=== PATIENT | female | born 1930 | race Caucasian/White ===

== ENCOUNTER 2017-08-22 10:20 | Outpatient (CLI) | payer MEDICARE, OTHER | END 2017-08-22 10:21 | disposition home or self-care (01) | LOC: BICRAD 10:20 | PROVIDERS: ATTEND Internal Medicine | DX: M81.0 Age-related osteoporosis without current pathological fracture (principal); M54.32 Sciatica, left side; M41.9 Scoliosis, unspecified; M43.16 Spondylolisthesis, lumbar region; M48.56XA Collapsed vertebra, not elsewhere classified, lumbar region, initial encounter for fracture | CPT/HCPCS: 72100; 72220; 77080 ==

== ENCOUNTER 2017-10-03 17:05 | Emergency (ER) | payer MEDICARE, OTHER ==
--- NOTE | 2017-10-03 17:46 | RAD ---
FRONTAL RADIOGRAPH CHEST 10/03/17 HISTORY: Dizziness. FINDINGS: A round density at the left cardiophrenic angle is noted with an air fluid level, evidence of a hiata l hernia. Midline sternotomy wires and mediastinal clips are present. No pneumothorax, pleural fluid, lobar consolidation or alveolar edema. Mild interstitial prominence and pulmonary hyperinflation. IMPRESSION: Chronic findings as above. No focal consolidation or alveolar edema. POS: [facility]
[2017-10-03 18:16] LABS: Mean Corpuscular HGB CONC 33.2 g/dL (32.0-36.0); Mean Corpuscular Hemoglobin 29.7 pg (27.0-31.0); Mean Corpuscular Volume 89.4 fL (78.0-98.0); Mean Platelet Volume 8.1 fL (7.4-10.4); Platelet Count 160 thou/uL (130-400); RBC Distribution Width 13.4 % (11.5-14.5); Red Blood Cell (RBC) Count 4.05 mill/uL (4.20-5.40)
[2017-10-03 18:38] LABS: ALT (SGPT) 23 U/L (8-55); AST (SGOT) 26 U/L (5-34); Albumin 4.9 g/dL (3.4-4.8); Alkaline Phosphatase 56 U/L (40-150); Anion Gap 12 mmol/L (10-20); BUN (Urea Nitrogen) 28 mg/dL (9.8-20.1); Bilirubin, Total 0.2 mg/dL (0.2-1.2); CK (CPK) 111 U/L (29-168); Calc. Creatinine Clearance 0 mL/min (70-130); Calcium 10.5 mg/dL (7.8-10.44); Carbon Dioxide 27 mmol/L (23-31); Chloride 101 mmol/L (98-107); Estimated GFR-MDRD 36; Globulin 3.2 g/dL (2.4-3.5); Glucose 94 mg/dL (83-110); Lipase 69 U/L (8-78); Potassium 5.4 mmol/L (3.5-5.1); Protein, Total 8.1 g/dL (6.0-8.3); Sodium 135 mmol/L (136-145)
[2017-10-03 18:44] LABS: CKMB 2.4 ng/mL (0-6.6); Troponin I Less than 0.010 ng/mL (< 0.028)
[2017-10-03 18:57] LABS: Band 4 % (5-11); Eosinophils 2 % (0-10); Lymphocytes 41 % (21-51); MDiff Complete? YES; Monocytes 14 % (0-10); Neutrophil 38 % (42-75); PLT Morphology Comment Appears Adequate
[2017-10-03 21:09] LABS: Bilirubin Negative (Negative); Blood, Urine Negative (Negative); Clarity CLEAR (Clear); Glucose, Urine (Dipstick) Negative (Negative); Leukocyte Negative (Negative); Nitrite Negative (Negative); Protein, Urine (Dipstick) Negative (Neg-Trace); Specific Gravity, Urine 1.007 (1.002-1.036); Urobilinogen 0.2 mg/dL (0.2-1.0)
== END 2017-10-03 22:10 | disposition home or self-care (01) ==
LOC: ERS 17:05
DX: E86.0 Dehydration (principal); I25.10 Atherosclerotic heart disease of native coronary artery without angina pectoris; Z79.899 Other long term (current) drug therapy; Z79.82 Long term (current) use of aspirin
CPT/HCPCS: 36416; 71045; 80053; 81003; 82553; 83690; 84484; 85025; 93005; 96360

== ENCOUNTER 2018-10-20 10:11 | Observation (INO) | payer MEDICARE, OTHER ==
[2018-10-20 10:41] LABS: Hemoglobin 12.4 g/dL (12.0-16.0); Mean Corpuscular HGB CONC 33.3 g/dL (32.0-36.0); Mean Corpuscular Volume 90.2 fL (78.0-98.0); Mean Platelet Volume 6.1 fL (7.4-10.4); Platelet Count 410 thou/uL (130-400); RBC Distribution Width 11.8 % (11.5-14.5); Red Blood Cell (RBC) Count 4.13 mill/uL (4.20-5.40); White Blood Cell (WBC) Count 9.4 thou/uL (4.8-10.8)
[2018-10-20 10:56] LABS: ALT (SGPT) 28 U/L (8-55); AST (SGOT) 19 U/L (5-34); Albumin 4.2 g/dL (3.4-4.8); Alkaline Phosphatase 121 U/L (40-150); Anion Gap 14 mmol/L (10-20); BUN (Urea Nitrogen) 16 mg/dL (9.8-20.1); Bilirubin, Total 0.4 mg/dL (0.2-1.2); Calc. Creatinine Clearance 0 mL/min (70-130); Calcium 10.2 mg/dL (7.8-10.44); Carbon Dioxide 26 mmol/L (23-31); Chloride 93 mmol/L (98-107); Estimated GFR-MDRD 43; Globulin 4.1 g/dL (2.4-3.5); Glucose 107 mg/dL (83-110); Lipase 128 U/L (8-78); Potassium 4.8 mmol/L (3.5-5.1); Protein, Total 8.3 g/dL (6.0-8.3); Sodium 128 mmol/L (136-145)
[2018-10-20 11:15] LABS: Eosinophils 1 % (0-10); Lymphocytes 20 % (21-51); MDiff Complete? YES; Monocytes 9 % (0-10); Neutrophil 66 % (42-75); Platelet Morphology Comment Appears Increased; RBC Morphology Normal; Reactive Lymphocytes 3 % (0-10)
[2018-10-20] MEDS ORDERED: Morphine 4 MG/ML VIAL ONE (11:24)
[2018-10-20] MEDS ORDERED: Ondansetron PF 4 MG/2 ML Vial ONE (11:24)
[2018-10-20] MEDS ORDERED: ISOVUE-370 76%-LOCM 1 ML ONE (11:54)
--- NOTE | 2018-10-20 12:30 | CT ---
CT ABDOMEN AND PELVIS WITH IV CONTRAST: Date: 10/20/18 HISTORY: Abdominal pain, diarrhea, right lower quadrant pain. FINDINGS: A large hiatal hernia is present. There are mild dependent changes in the lung bases. Multiple calcif ied splenic granulomas are present. No calcified gallstones are identified. The liver, pancreas, adre nal glands, and right kidney are normal. There is a 15 mm cortical cyst arising from the inferior juan e of the left kidney. There are vascular calcifications without evidence of aneurysmal dilatation of the abdominal aorta. D egenerative changes are present in the spine. No free air is seen. There is a moderate amount of free fluid in the pelvis. There is sigmoid diverticulosis. The small bowel loops are not abnormally dilat ed. There is prominence of the hurst of the terminal ileum. An abnormal appendix is not definitely se en. IMPRESSION: 1. Large hiatal hernia. 2. Calcified splenic granulomas. 3. Left renal cyst. 4. Sigmoid diverticulosis. 5. Moderate amount of free fluid in the pelvis. 6. Probable thickening of the wall of the terminal ileum. This is a nonspecific finding and may be d ue to infection, inflammatory or infiltrative disorders. POS: [facility]
[2018-10-20 13:35] LABS: Bilirubin Negative (Negative); Blood, Urine Negative (Negative); Clarity Clear (Clear); Glucose, Urine (Dipstick) Normal (Negative); Leukocyte Negative Leu/uL (Negative); Nitrite Negative (Negative); Protein, Urine (Dipstick) Negative (Neg-Trace); Urobilinogen Normal mg/dL (Less than 2)
[2018-10-20] MEDS ORDERED: Ondansetron PF 4 MG/2 ML Vial IVP PRN (16:20)
[2018-10-20] MEDS ORDERED: HYDROcodone/Acetaminophen 5/325 mg Tablet PO PRN ×2 (16:20)
[2018-10-20] MEDS ORDERED: Acetaminophen 325 MG TAB PO PRN (16:20)
[2018-10-20 16:43] VITALS: BMI 22.5
[2018-10-20] MEDS: Sodium Chloride 0.9% 1,000 ML IV SCH (17:23)
[2018-10-20] MEDS ORDERED: Melatonin 3 MG TAB PO PRN (18:14)
[2018-10-20 18:42] LABS: Anion Gap 14 mmol/L (10-20); BUN (Urea Nitrogen) 13 mg/dL (9.8-20.1); Calc. Creatinine Clearance 40 mL/min (70-130); Calcium 9.6 mg/dL (7.8-10.44); Carbon Dioxide 24 mmol/L (23-31); Chloride 98 mmol/L (98-107); Estimated GFR-MDRD 55; Glucose 101 mg/dL (83-110); Potassium 4.6 mmol/L (3.5-5.1); Sodium 131 mmol/L (136-145)
--- NOTE | 2018-10-20 18:52 | HP ---
CHIEF COMPLAINT: Abdominal pain and frequent loose stool. HISTORY OF PRESENT ILLNESS: An 87-year-old female with past medical history significant for coronary artery disease, status post CABG; hypertension; hyperlipidemia; and others, who was recently started by dentist on Z-Cornel, which was just completed yesterday for jaw pain. The patient reported poor appetite while on antibiotics associated with intermittent abdominal pain, which, however, started getting worse since a day prior to presentation, culminating in marked increase in severity today and was associated with frequent loose stools. The patient reportedly had about four loose bowel motions earlier today, hence was brought to the emergency room. There was no history of fever, vomiting, dysuria, chest pain, palpitations, shortness of breath, headache, leg swelling, hematemesis, hematochezia, or melena. It was also reported that in the last several days due to poor appetite, the patient has had little or nothing to eat or drink. In the emergency room, the patient was found to have hyponatremia as well as mild elevation in creatinine. Further evaluation with CT scan of the abdomen and pelvis showed thickening of the terminal ileum as well as diverticulosis and free fluid in the pelvis. The patient was admitted for further evaluation and observation. There was no history of NSAID use or laxative use. PAST MEDICAL HISTORY: 1. Coronary artery disease, status post CABG. 2. Hypertension. 3. Hyperlipidemia. PAST SURGICAL HISTORY: 1. Bypass surgery. 2. Tonsillectomy. 3. Hysterectomy. 4. Appendectomy. FAMILY HISTORY: Reviewed, but noncontributory. SOCIAL HISTORY: The patient lives alone. Denied alcohol, smoking, or recreational drug use. The patient wants to be do not resuscitate. Son is the surrogate decision maker. ALLERGIES: NO KNOWN DRUG ALLERGIES REPORTED. HOME MEDICATIONS: 1. Calcium carbonate/citrate with vitamin D 1 tablet p.o. b.i.d. 2. Cholecalciferol 2000 units daily. 3. Cyanocobalamin 1000 mcg p.o. daily. 4. Iron one tablet daily. 5. Magnesium oxide 400 mg p.o. daily. 6. Multivitamin one tablet daily. 7. [place]-3 fatty acids one capsule daily. 8. Amlodipine 5 mg p.o. daily at p.m. 9. Aspirin 81 mg p.o. daily. 10. Lipitor 10 mg p.o. daily at bedtime. 11. Levothyroxine 50 mcg p.o. daily. 12. Lisinopril 10 mg p.o. daily. 13. Melatonin 5 mg p.o. q.p.m. 14. Metoprolol succinate 25 mg p.o. daily. REVIEW OF SYSTEMS: A 12-point review of system performed was negative other than pertinent positives and negatives included in the history of present illness. PHYSICAL EXAMINATION: VITAL SIGNS: Temperature 97.6, pulse 81, respiratory rate 16, SpO2 of 96% on room air, and blood pressure is 144/76. GENERAL: Healthy-looking elderly female, in no obvious distress. Afebrile. Anicteric. Acyanotic. HEENT: Normocephalic and atraumatic. Pupils are reacting to light. Oral mucosa is moist. NECK: Supple, nontender with full range of motion. No lymphadenopathy or masses was appreciated. CARDIOVASCULAR: Regular rhythm and rate with normal heart sounds 1 and 2. Soft systolic murmur was noted. RESPIRATORY: Good air entry bilaterally with no crackle or rhonchi or use of accessory muscles. GI: Full, soft, nondistended with questionable right lower quadrant mild tenderness. Bowel sound is normoactive. EXTREMITIES: Grossly normal looking, atraumatic with no edema, erythema, or cyanosis. Distal pulses are palpable. NEUROLOGIC: Conscious, alert, and oriented x3 with appropriate mental status. Cranial nerves 2 through 12 are grossly intact. The patient moves all extremities. DIAGNOSTIC DATA: CBC showed WBC count of 9.4, hemoglobin of 12.4, MCV of 90.2, platelet of 410. CMP showed sodium 128, potassium 4.8, chloride 93, CO2 of 26, BUN 16, creatinine 1.19, glucose 107, calcium 10.2, total bilirubin 0.4, AST 19, ALT 28, alkaline phosphatase 121, total protein 8.3, albumin 4.2. Lipase is 128. Review of medical records showed the patient had sodium of 135 on October 03, 2017. Urinalysis showed clear urine with pH of 7.0; specific gravity of 1.015; negative protein, ketone, blood, nitrite, bilirubin, and leukocyte esterase. CT scan of the abdomen and pelvis showed large hiatal hernia with calcified splenic granulomas. Left renal cyst, sigmoid diverticulosis with no evidence of acute diverticulitis, moderate amount of free fluid in the pelvis were noted as well as probable thickening of the wall of the terminal ileum. ASSESSMENT: 1. Acute abdominal pain: This is mild and has improved since presentation. Etiology is unclear, but finding of terminal ileum thickening is concerning for ileitis. Given association with ill feeling, poor appetite and diarrhea illness, viral infection is a concern. 2. Possible terminal ileitis. 3. Hyponatremia: This is most likely due to dehydration with appropriate ADH secretion. The patient had normal serum sodium in September 2017. She is not on any medication that could cause syndrome of inappropriate antidiuretic hormone secretion. Mild elevation in creatinine is suggestive of volume depletion. 4. Renal insufficiency with possible acute kidney injury. 5. Coronary artery disease, status post CABG, asymptomatic. 6. Hypertension, on medications. 7. Hyperlipidemia, on medications. 8. Recent jaw ache: Resolved with completed antibiotic course. PLAN: 1. Start the patient on normal saline at 100 mL/h and follow up with BMP. 2. We will also get urine sodium and osmolality as well as serum osmolality. 3. We will continue home medications. 4. We will recheck BMP in the morning. 5. Diet as tolerated will be commenced. 6. DVT prophylaxis with Lovenox. 7. Ethics: The patient wants to be do not resuscitate. The patient's son is the surrogate decision maker. Job ID: [id number]
[2018-10-20] MEDS ORDERED: Atorvastatin Calcium 10 MG TAB PO SCH (21:00)
[2018-10-20] MEDS ORDERED: Amlodipine 5 MG TAB PO SCH (21:00)
[2018-10-21] MEDS: Sodium Chloride 0.9% 1,000 ML IV SCH (02:39)
[2018-10-21 05:45] LABS: Band 4 % (5-11); Eosinophils 1 % (0-10); Hemoglobin 9.7 g/dL (12.0-16.0); Lymphocytes 30 % (21-51); MDiff Complete? YES; Mean Corpuscular HGB CONC 33.5 g/dL (32.0-36.0); Mean Corpuscular Hemoglobin 30.4 pg (27.0-31.0); Mean Corpuscular Volume 90.8 fL (78.0-98.0); Mean Platelet Volume 6.2 fL (7.4-10.4); Metamyelocyte 1 % (0-0); Monocytes 15 % (0-10); Neutrophil 49 % (42-75); Platelet Count 305 thou/uL (130-400); Platelet Morphology Comment Appears Adequate; RBC Distribution Width 11.6 % (11.5-14.5); Red Blood Cell (RBC) Count 3.19 mill/uL (4.20-5.40); White Blood Cell (WBC) Count 5.9 thou/uL (4.8-10.8)
[2018-10-21 05:49] LABS: Anion Gap 9 mmol/L (10-20); BUN (Urea Nitrogen) 15 mg/dL (9.8-20.1); Calc. Creatinine Clearance 46 mL/min (70-130); Carbon Dioxide 25 mmol/L (23-31); Chloride 104 mmol/L (98-107); Estimated GFR-MDRD 66; Glucose 97 mg/dL (83-110); Potassium 4.4 mmol/L (3.5-5.1); Sodium 134 mmol/L (136-145)
[2018-10-21 08:20] VITALS: BP 121/61; TEMP 97.6
[2018-10-21] MEDS ORDERED: Levothyroxine Sodium 50 MCG TAB PO SCH (09:00)
[2018-10-21] MEDS ORDERED: Enoxaparin Sodium 30 MG/0.3 ML SYRINGE SC SCH (09:00)
[2018-10-21] MEDS ORDERED: Aspirin Chewable 81 MG TAB PO SCH (09:00)
[2018-10-21] MEDS ORDERED: Lisinopril 10 MG TAB PO SCH (09:00)
--- NOTE | 2018-10-21 13:36 | PDOC.EVN ---
Event Note - Event Note Event Note: Discharge home. discharge summary dictated. #[id number]
--- NOTE | 2018-10-21 13:57 | DIS ---
DATE OF ADMISSION: 10/20/2018 DATE OF DISCHARGE: 10/21/2018 PRIMARY CARE PHYSICIAN: Dr. Jacki Navarrete. DISCHARGE DIAGNOSES: 1. Acute abdominal pain. 2. Acute diarrhea illness. 3. Possible terminal ileitis. 4. Hypernatremia. 5. Dehydration. 6. Acute kidney injury. 7. Hypertension. 8. Hyperlipidemia. 9. Coronary artery disease, status post CABG. HOSPITAL COURSE: The patient is an 87-year-old female with known history of coronary artery disease, status post CABG, hypertension, hyperlipidemia, who was admitted due to generalized ill feeling while on Z-Cornel for jaw pain, who later developed abdominal pain and frequent loose stools. The patient has had poor oral intake and was weak. On presentation, she was found to have hyponatremia as well as mild elevation in creatinine, and further evaluation with CT scan of the abdomen showed possible terminal ileitis. The patient also was felt to be clinically dry. Hyponatremia was felt to be due to dehydration with appropriate ADH secretion, and the patient was treated with IV fluid therapy with improvement in both the general condition as well as in serum sodium. The patient soon complained of hunger and was started on oral intake. She had no further loose stools and remained stable and was subsequently discharged home the following day with resolution of symptoms. Of note, the patient had no loose stool or emesis during this hospitalization. PHYSICAL EXAMINATION: VITAL SIGNS: Temperature 97.6, pulse 73, respiratory rate 16, SpO2 of 94 on room air, blood pressure 121/61. GENERAL: Healthy-looking elderly female, in no distress. Afebrile. Anicteric. Acyanotic. HEENT: Normocephalic, atraumatic. Oral mucosa is moist. CARDIOVASCULAR: Regular rhythm and rate with normal heart sounds 1 and 2. RESPIRATORY: Good air entry bilaterally with no crackle or rhonchi or use of accessory muscles. GI: Abdomen is full, soft, nontender, nondistended with normal bowel sounds. EXTREMITIES: Grossly normal looking, atraumatic, with no edema or erythema. NEUROLOGIC: Conscious and alert and oriented x3 with appropriate mental status. The patient is ambulant. DISCHARGE DISPOSITION: Home. DISCHARGE CONDITION: Improved. DISCHARGE MEDICATIONS: See discharged med reconciliation. The patient was restarted on her usual home medications. Job ID: [id number]
== END 2018-10-21 09:45 | disposition home or self-care (01) ==
LOC: ERS 10:11 → 2SW 16:25
PROVIDERS: ADMIT Internal Medicine Nephrology; ATTEND Internal Medicine Nephrology
DX: R10.9 Unspecified abdominal pain (principal); R19.7 Diarrhea, unspecified; E87.1 Hypo-osmolality and hyponatremia; E86.0 Dehydration; N17.9 Acute kidney failure, unspecified; E78.5 Hyperlipidemia, unspecified; I10 Essential (primary) hypertension; I25.10 Atherosclerotic heart disease of native coronary artery without angina pectoris; Z66 Do not resuscitate; Z79.82 Long term (current) use of aspirin; Z79.899 Other long term (current) drug therapy; Z95.1 Presence of aortocoronary bypass graft
CPT/HCPCS: 74177; 80048 ×2; 80053; 81003; 83690; 85025 ×2; 96361 ×3; 96372; 96374; 96375; 99285; G0378 ×3; G0463; 36415; 99213; J1650; J2270; J2405; Q9966

== ENCOUNTER 2018-11-14 14:30 | Inpatient (IN) | payer MEDICARE, OTHER ==
[2018-11-14] MEDS ORDERED: ISOVUE-370 76%-LOCM 1 ML ONE (15:45)
[2018-11-14 16:38] LABS: Hemoglobin 11.4 g/dL (12.0-16.0); Mean Corpuscular HGB CONC 34.1 g/dL (32.0-36.0); Mean Corpuscular Hemoglobin 30.4 pg (27.0-31.0); Mean Corpuscular Volume 89.4 fL (78.0-98.0); Mean Platelet Volume 8.2 fL (7.4-10.4); Platelet Count 176 thou/uL (130-400); RBC Distribution Width 12.4 % (11.5-14.5); Red Blood Cell (RBC) Count 3.73 mill/uL (4.20-5.40); White Blood Cell (WBC) Count 10.9 thou/uL (4.8-10.8)
[2018-11-14 16:49] LABS: ALT (SGPT) 15 U/L (8-55); AST (SGOT) 25 U/L (5-34); Albumin 4.6 g/dL (3.4-4.8); Alkaline Phosphatase 74 U/L (40-150); Anion Gap 15 mmol/L (10-20); BUN (Urea Nitrogen) 16 mg/dL (9.8-20.1); Bilirubin, Total 0.7 mg/dL (0.2-1.2); Calc. Creatinine Clearance 0 mL/min (70-130); Calcium 9.9 mg/dL (7.8-10.44); Carbon Dioxide 22 mmol/L (23-31); Chloride 91 mmol/L (98-107); Estimated GFR-MDRD 54; Globulin 3.4 g/dL (2.4-3.5); Glucose 108 mg/dL (83-110); Lipase 68 U/L (8-78); Potassium 4.6 mmol/L (3.5-5.1); Sodium 123 mmol/L (136-145)
[2018-11-14 17:01] LABS: Band 31 % (5-11); Lymphocytes 6 % (21-51); MDiff Complete? YES; Monocytes 14 % (0-10); Neutrophil 49 % (42-75); Platelet Morphology Comment Appears Adequate; Polychromasia SLIGHT = 2-3 cells (100X) (0-2/hpf)
--- NOTE | 2018-11-14 17:51 | CT ---
CT OF THE ABDOMEN AND PELVIS WITH IV CONTRAST INDICATION: Abdominal pain and rectal pain COMPARISON: Prior exam dated October 20, 2018 FINDINGS: ABDOMEN: There is a moderate size hiatal hernia Lung bases: Bibasilar atelectasis Liver: No focal lesion. Gallbladder: Normal appearing. Pancreas: Normal. Adrenal glands: Normal. Spleen: Calcified granuloma Kidneys: Bilateral renal cysts but no hydronephrosis Retroperitoneum of the upper abdomen: There are moderate vascular calcifications seen involving the v isualized vasculature. No pathologically enlarged lymph nodes are evident. Pelvis: Small and large bowel: Normal caliber Bladder: Normal. Rectal and perirectal soft tissues:Wall thickening with presacral edema Reproductive structures: Uterus surgically absent. There is an enlarging 2.1 cm hypodensity involving the left adnexa. Free fluid in pelvis: No free fluid is evident. Lymphadenopathy pelvis: No lymphadenopathy is evident. Osseous structures: Stable compression abnormality of L1. There is scattered degenerative and osteoar thritic change present. There is diffuse osteopenia. No acute fracture or subluxation demonstrated. IMPRESSION: 1. Acute proctitis with associated presacral soft tissue edema. 2. Enlarging left adnexal cystic abnormality. Nonemergent follow-up pelvic ultrasound is recommended. 3. Chronic findings as above
[2018-11-14] MEDS ORDERED: metroNIDAZOLE 500 MG/100 ML BAG ONE (18:29)
[2018-11-14] MEDS ORDERED: Pantoprazole 40 MG VIAL ONE ×2 (18:29→18:41)
[2018-11-14] MEDS ORDERED: Ondansetron PF 4 MG/2 ML Vial IVP PRN (20:13)
[2018-11-14] MEDS ORDERED: Acetaminophen 325 MG TAB PO PRN (20:13)
[2018-11-14] MEDS ORDERED: Ondansetron ODT 4 MG TAB PO PRN (20:13)
[2018-11-14] MEDS ORDERED: Acetaminophen 650 MG Suppository PR PRN (20:13)
[2018-11-14] MEDS ORDERED: metroNIDAZOLE 500 MG in Premix Bag 1 BAG IVPB SCH (22:00)
[2018-11-14] MEDS ORDERED: Dextrose 5 % And 0.9 % NaCl 1,000 ML IV SCH (22:15)
[2018-11-14 22:27] VITALS: BMI 22.1
[2018-11-15] MEDS: metroNIDAZOLE 500 MG in Premix Bag 1 BAG IVPB SCH ×3 (02:13→17:35)
[2018-11-15 05:09] LABS: Anion Gap 12 mmol/L (10-20); BUN (Urea Nitrogen) 10 mg/dL (9.8-20.1); Calc. Creatinine Clearance 43 mL/min (70-130); Calcium 8.8 mg/dL (7.8-10.44); Carbon Dioxide 20 mmol/L (23-31); Chloride 99 mmol/L (98-107); Estimated GFR-MDRD 66; Glucose 103 mg/dL (83-110); Sodium 127 mmol/L (136-145)
[2018-11-15 05:41] LABS: Band 12 % (5-11); Hemoglobin 10.6 g/dL (12.0-16.0); Lymphocytes 12 % (21-51); MDiff Complete? YES; Mean Corpuscular HGB CONC 33.9 g/dL (32.0-36.0); Mean Corpuscular Hemoglobin 30.5 pg (27.0-31.0); Mean Platelet Volume 8.4 fL (7.4-10.4); Monocytes 18 % (0-10); Neutrophil 58 % (42-75); Platelet Count 154 thou/uL (130-400); RBC Distribution Width 12.5 % (11.5-14.5); Red Blood Cell (RBC) Count 3.49 mill/uL (4.20-5.40); White Blood Cell (WBC) Count 8.7 thou/uL (4.8-10.8)
[2018-11-15] MEDS ORDERED: Meclizine HCl 25 MG TAB PO PRN (08:03)
[2018-11-15] MEDS ORDERED: Non-Formulary Item 1 EACH (Melatonin [Melatonin] 5 MG) PO PRN (08:03)
[2018-11-15] MEDS: Enoxaparin Sodium 40 MG/0.4 ML SYRINGE SC SCH (08:38)
[2018-11-15] MEDS ORDERED: OMEGA 3 FATTY ACIDS PO SCH (09:00)
[2018-11-15] MEDS ORDERED: IRON 45 MG PO SCH (09:00)
[2018-11-15] MEDS ORDERED: VIT D3 PO SCH (09:00)
[2018-11-15] MEDS ORDERED: MAGNESIUM GLYCINATE 400 MG PO SCH (09:00)
[2018-11-15] MEDS ORDERED: Non-Formulary Item 1 EACH (Cyanocobalamin (Vitamin B-12) [Vitamin B-12] 1,000 MCG) PO SCH (09:00)
[2018-11-15] MEDS ORDERED: CALCIUM CARB CITRATE PO SCH (09:00)
[2018-11-15] MEDS ORDERED: MELATONIN 5 MG PO PRN (09:05)
[2018-11-15] MEDS: Calcium Carbonate + Vit D 1 TAB PO SCH ×2 (09:15→20:58)
[2018-11-15] MEDS: Senokot S 8.6-50 MG TAB PO SCH ×2 (09:16→20:58)
[2018-11-15] MEDS: Lisinopril 10 MG TAB PO SCH (09:16)
[2018-11-15] MEDS: Magnesium Oxide 400 MG TAB PO SCH (09:16)
[2018-11-15] MEDS: Aspirin Chewable 81 MG TAB PO SCH (09:17)
[2018-11-15] MEDS: Levothyroxine Sodium 50 MCG TAB PO SCH (09:17)
[2018-11-15] MEDS: Cyanocobalamin (Vitamin B-12) 1,000 MCG TAB PO SCH (09:17)
[2018-11-15] MEDS ORDERED: Melatonin 3 MG TAB PO PRN (11:55)
--- NOTE | 2018-11-15 12:23 | ULT ---
PELVIC SONOGRAM TRANSABDOMINAL IMAGING WITH DUPLEX EVALUATION: HISTORY: Left adnexal mass. Abnormal CT. FINDINGS: Urinary bladder has a normal appearance. Uterus is surgically absent. No free fluid. The right ovary not visualized with transabdominal imaging. No solid or cystic masses. Left ovary measures up to 3.3 cm with good color and spectral Doppler flow. An eccentric oval cystic lesion measures up to 2.3 cm. This correlates with the abnormality on CT. IMPRESSION: 1. Left ovarian cyst 2.3 cm. Please consider gynecologic consultation. 2. Status post hysterectomy. 3. Nonvisualization right ovary. POS: [facility]
--- NOTE | 2018-11-15 12:25 | HP ---
PRIMARY CARE PHYSICIAN: Jacki Navarrete MD CHIEF COMPLAINT/REASON FOR ADMISSION: "I was unable to have a bowel movement." HISTORY OF PRESENT ILLNESS: Ms. Cordova is a delightful 88-year-old female, presenting on 11/14/2018, to [facility] Emergency Department with complaint of difficulty having a bowel movement. Ms. Cordova has a bowel movement each day, she is very regular. She was able to have a bowel movement on 11/12/2018. However, on 11/13/2018, unable to have a bowel movement despite trial of suppository. She endorses straining at that time. She became progressively more and more uncomfortable, trying once again on the morning of 11/14/2018 with a Dulcolax suppository as well as oral tablet. She developed a lower abdominal pain and cramping, inability to pass stools, proceeded to the emergency department, was triaged at 1433 hours yesterday afternoon. Emergency department workup included laboratory evaluation showing mild leukocytosis with white blood cell count of 10.9, hemoglobin 11.4, hematocrit 33.3, and platelet count of 176. Chemistry panel also notable for hyponatremia with serum sodium of 123, chloride of 91, and carbon dioxide 22. Liver function tests unremarkable. Imaging performed included abdominal/pelvis CT scan. This was also compared to prior scans on October 20, 2018, at which time, the patient was hospitalized for an overnight stay in the context of terminal ileitis and hyponatremia. Findings of CT on 11/15 include acute prostatitis with associated presacral soft tissue edema. Enlarging left adnexal cystic abnormality with recommendation for followup pelvic ultrasound, 2.1 cm hypodensity involving left adnexa. Hospital stay from September reviewed with the patient, this was an overnight stay, hospitalized with diarrhea and acute abdominal pain, with imaging showing possible terminal ileitis. At that time as well, she was noted to have hyponatremia, treated with IV fluid resuscitation with interval improvement. At that time, her serum sodium was 128. Additional pertinent medical comorbidities include coronary artery disease, dyslipidemia, and hypothyroidism. Home medication list also includes iron, likely contributing to constipation. GI history includes previous colonoscopy under the care of Dr. Salazar, the patient estimates this was greater than 10 years ago. ER holding orders indicate GI consultation requested, antibiotics initiated including ciprofloxacin and Flagyl. At the time of my evaluation this morning, the patient states she slept well. She "feels fine today." No further abdominal pain. Has not tried to eat since yesterday, when she tolerated 2 or 3 bites of soup. She denies any nausea at this time. She is unsure if she has had any blood in her stools. She does not recall any gross bleeding with specificity. No fever. Weight has been stable at home. Yesterday afternoon, she was able to have a large bowel movement, at which time, her symptoms significantly improved. Overnight, one looser stool as well. Reports feeling much better today. PAST MEDICAL HISTORY: 1. Coronary artery disease with history of coronary artery bypass grafting. 2. Hypothyroidism. 3. Dyslipidemia. 4. History of B12 deficiency, on chronic B12 supplementation. 5. Hypertension, well controlled. 6. History of daily iron supplementation, presumably for history of anemia, though the patient is unsure. PAST SURGICAL HISTORY: 1. Coronary artery bypass surgery. 2. Tonsillectomy. 3. Hysterectomy. 4. Appendectomy. ALLERGIES: NONE. SOCIAL HISTORY: Ms. Cordova lives independently. Her son is her surrogate medical decision maker, Dov Cordova, who lives nearby. Code status is do not resuscitate. I have reviewed this with her this morning. She does not smoke, no alcohol use, no illicit drug use. FAMILY HISTORY: Father at age 76 of complications of cardiac problems. Mother at age 98 of old age. REVIEW OF SYSTEMS: Full review of systems reviewed/addressed/negative except otherwise as mentioned. PHYSICAL EXAMINATION: VITAL SIGNS: Blood pressure 117/64, heart rate 72, respiratory rate 16, saturating 95% on room air, and temperature 98.0. GENERAL: This is a pleasant elderly female, sitting up in a chair. She is breathing comfortably, has some sensorineural hearing loss, but is a good history town justice when able to hear the questioning. HEENT: Eyes are without conjunctival injection or scleral icterus. Oropharynx is clear with no erythema/exudate. NECK: Supple. Full range of motion. HEART: Regular rate/rhythm. No distinct murmurs/rubs/gallops. LUNGS: Clear to auscultation bilaterally. ABDOMEN: Soft, nontender, and nondistended. EXTREMITIES: Without clubbing/cyanosis/edema. NEUROLOGIC: No focal deficits. SKIN: No new skin rash/skin changes. LAB/DATA REVIEW: Serum sodium on admission 123, serum sodium today 127; potassium 4.0; carbon dioxide 20; BUN 10; and creatinine 0.8. Liver function tests are reviewed and are unremarkable. Admission white blood cell count 10.9, hemoglobin 11.4. Today, white blood cell count 8.7, hemoglobin 10.6, and hematocrit 31.4. She does have a left shift present with 12% bands this morning, 12% lymphocytes, 18% monocytes. Imaging studies as well as old records are reviewed and summarized as per HPI. IMPRESSION: 1. Acute proctitis, manifesting with obstipation, with associated presacral soft tissue edema. 2. Lower abdominal pain, on admission, resolved, in the context of obstipation. 3. A 2.1-cm hypodensity, left adnexa, likely incidental. 4. Coronary artery disease with history of prior coronary artery bypass grafting, stable. 5. Essential hypertension, controlled. 6. Dyslipidemia. 7. Chronic iron therapy, likely contributing to constipation. 8. Leukocytosis, on admission, improved. 9. Hyponatremia, on admission, improving. 10. Mild hypovolemia/dehydration, improving. 11. Hypothyroidism. PLAN/RECOMMENDATIONS: 1. GI - previous history of colonoscopy under the care of Dr. Salazar, greater than 10 years ago. Presently on Flagyl/Cipro, presumptively treating for acute proctitis. GI consult pending, appreciate input. Dietary trial today. Consideration of cessation iron regimen given difficulties with constipation. 2. Fluids, electrolytes, nutrition. Check morning serum sodium. The patient is asymptomatic from hyponatremia. Received IV fluids overnight, saline lock and monitor. 3. DVT prophylaxis - Lovenox. 4. Cardiology - continue home MICHELE inhibitor/beta-wendi/statin/aspirin. 5. Endocrine - continue home thyroid replacement. 6. Code status, do not resuscitate, confirmed with the patient, order added to chart. 7. Consult walking program to prevent deconditioning during hospital stay. 8. Given her age/comorbidities, admit to inpatient status, the patient at high risk. Job ID: [id number]
[2018-11-15] MEDS ORDERED: Non-Formulary Item 1 EACH (Cholecalciferol (Vitamin D3) [Vitamin D3] 2,000 UNIT) PO SCH (21:00)
[2018-11-15] MEDS ORDERED: Non-Formulary Item 1 EACH (Multivitamin [Multi-Vitamin Daily] 1 TAB) PO SCH (21:00)
[2018-11-15] MEDS ORDERED: Magnesium Oxide 400 MG TAB PO SCH (21:00)
[2018-11-15] MEDS ORDERED: Amlodipine 5 MG TAB PO SCH (21:00)
[2018-11-15] MEDS ORDERED: Multivit, Therapeutic 1 TAB PO SCH (21:00)
[2018-11-15] MEDS ORDERED: Atorvastatin Calcium 10 MG TAB PO SCH (21:00)
--- NOTE | 2018-11-15 23:49 | CON ---
DATE OF CONSULTATION: REASON FOR CONSULTATION: Abnormal CAT scan of the rectum showing "proctitis." HISTORY OF PRESENT ILLNESS: Ms. Cordova is an 88-year-old female. She was recently here from 10/20 to 10/21, with diarrheal illness. She had some vague findings of possible ileitis on a CAT scan. She had no leukocytosis. She went home and states she has been doing fine. She lives by herself. Son lives down the street. She states she became constipated, did not have a bowel movement on Monday or again Monday and also was taking multiple laxatives and then came in with rectal pain and lower abdominal pain. She had a CAT scan that showed prominent amount of stool in the rectum and some possible proctitis. She had bands of 31% on her CBC with a white count of 10.9 yesterday. She states in the emergency room after the CAT scan, she had a massive bowel movement and felt immediately better. She does not recall seeing blood there. She has not had anything like this in the past. Presently, she feels much better and is eating a regular diet. PAST MEDICAL HISTORY: Coronary artery disease with prior bypass; hypothyroidism; dyslipidemia; history of vitamin B12 deficiency, on chronic B12; hypertension, well controlled; history of iron supplementation in the past, although was not very anemic recently. She had a colonoscopy about 10 years ago, which was normal. She states she never had polyps before. PAST SURGICAL HISTORY: Bypass surgery, tonsillectomy, hysterectomy, and appendectomy. ALLERGIES: NONE. SOCIAL HISTORY: The patient lives independently. Son lives down the street. She does not smoke, drink, or use drugs. FAMILY HISTORY: Father at 76 of cardiac problems and mother at age 98 of old age. There is no family history of colorectal cancer or colitis. REVIEW OF SYSTEMS: Negative for dysphagia, odynophagia, melena, hematochezia, or hematemesis. She has not had any bowel issues like this recently and she was asymptomatic during her hospitalization in late September and now. MEDICATIONS: At home, reviewed on the home medication list includes; 1. Antivert. 2. Calcium. 3. Magnesium. 4. [place]-3. 5. B12. 6. Vitamin D. 7. Lipitor. 8. Norvasc. 9. Multivitamin. 10. Melatonin. 11. Iron. 12. Aspirin. 13. Toprol. 14. Zestril. 15. Synthroid. Here, she has been kept on her home medications. She has additionally been started on Flagyl and Lovenox subcu. PHYSICAL EXAMINATION: GENERAL: The patient is resting comfortably in bed. She is in no apparent distress. She is alert and oriented to person, place, and time. VITAL SIGNS: She is afebrile, temperature 97.7. She has been afebrile since admission. Pulse 72 and blood pressure 112/62. LUNGS: Clear. HEART: Regular rate and rhythm without clicks, rubs, or murmurs. ABDOMEN: Soft and nontender. There is no rebound or guarding. RECTAL: Reveals no masses or tenderness. There is no blood in the examining glove. There is no fullness to the rectum. There is no impaction now. LABORATORY DATA: White count is 8.7, hemoglobin is 10.6, and platelet count is 154. She has 12% bands and 58% neutrophils. Basic metabolic profile is normal. The BUN and creatinine are 10 and 0.82. Liver function tests are normal. Lipase is normal. ASSESSMENT: Proctitis, likely related to obstipation. It seems that she has had a large bowel movement and felt better immediately. She developed slight bandemia. She may have had some rectal ischemia. There is no evidence of rectal bleeding at this time. She is on Flagyl, but the Cipro has been discontinued. I am not sure if she needs either one. We will not change her antibiotics at this point in time as she has a significant risk for C difficile as she has been on antibiotics recently when she was here last time a month ago. PLAN: We would manage conservatively now. If she has recurrent symptoms, can consider colonoscopy definitely. She has advanced age and has had some medical problems, but she is very sharp and very healthy and has longevity on her mother's side of the family. We will follow along with you. Thank you for including me in this patient's evaluation. Job ID: [id number]
[2018-11-16] MEDS: metroNIDAZOLE 500 MG in Premix Bag 1 BAG IVPB SCH ×2 (01:34→10:27)
[2018-11-16 07:21] LABS: Hemoglobin 9.9 g/dL (12.0-16.0); Mean Corpuscular HGB CONC 33.6 g/dL (32.0-36.0); Mean Corpuscular Hemoglobin 30.4 pg (27.0-31.0); Mean Corpuscular Volume 90.6 fL (78.0-98.0); Mean Platelet Volume 8.3 fL (7.4-10.4); Platelet Count 151 thou/uL (130-400); RBC Distribution Width 12.6 % (11.5-14.5); Red Blood Cell (RBC) Count 3.25 mill/uL (4.20-5.40); White Blood Cell (WBC) Count 5.4 thou/uL (4.8-10.8)
[2018-11-16 07:28] LABS: Anion Gap 9 mmol/L (10-20); BUN (Urea Nitrogen) 9 mg/dL (9.8-20.1); Calc. Creatinine Clearance 45 mL/min (70-130); Calcium 9.1 mg/dL (7.8-10.44); Carbon Dioxide 24 mmol/L (23-31); Chloride 104 mmol/L (98-107); Estimated GFR-MDRD 70; Glucose 87 mg/dL (83-110); Potassium 3.9 mmol/L (3.5-5.1); Sodium 133 mmol/L (136-145)
[2018-11-16 08:01] VITALS: BP 146/79; TEMP 99.4
[2018-11-16 08:18] LABS: Band 5 % (5-11); Eosinophils 5 % (0-10); Lymphocytes 21 % (21-51); MDiff Complete? YES; Monocytes 20 % (0-10); Neutrophil 48 % (42-75); Platelet Morphology Comment Appears Adequate; Polychromasia SLIGHT = 2-3 cells (100X) (0-2/hpf)
[2018-11-16] MEDS: Levothyroxine Sodium 50 MCG TAB PO SCH (08:44)
[2018-11-16] MEDS ORDERED: FISH OIL PO SCH (09:00)
[2018-11-16] MEDS: Cyanocobalamin (Vitamin B-12) 1,000 MCG TAB PO SCH (10:25)
[2018-11-16] MEDS: Aspirin Chewable 81 MG TAB PO SCH (10:25)
[2018-11-16] MEDS: Lisinopril 10 MG TAB PO SCH (10:25)
[2018-11-16] MEDS: Magnesium Oxide 400 MG TAB PO SCH (10:26)
[2018-11-16] MEDS: Senokot S 8.6-50 MG TAB PO SCH (10:26)
[2018-11-16] MEDS: Calcium Carbonate + Vit D 1 TAB PO SCH (10:26)
[2018-11-16] MEDS: Enoxaparin Sodium 40 MG/0.4 ML SYRINGE SC SCH (10:27)
--- NOTE | 2018-11-17 05:35 | DIS ---
DATE OF ADMISSION: 11/14/2018 DATE OF DISCHARGE: 11/16/2018 PRIMARY CARE PHYSICIAN: Jacki Navarrete MD. CHIEF COMPLAINT/REASON FOR ADMISSION: "I was unable to have a bowel movement." PRINCIPAL DIAGNOSIS ON ADMISSION: Acute proctitis manifesting with obstipation with associated presacral soft tissue edema. DISCHARGE DIAGNOSES: 1. Acute proctitis, manifesting with obstipation, with associated presacral soft tissue edema, resolved. 2. Lower abdominal pain on admission, resolved following ability to empty bowels. 3. A 2.1 cm ovarian cyst, left adnexa, likely incidental. 4. Coronary artery disease with history of prior coronary artery bypass grafting. 5. Essential hypertension. 6. Dyslipidemia. 7. Chronic iron therapy, possibly contributing to constipation. 8. Leukocytosis, resolved. 9. Hyponatremia, improved. 10. Mild hypovolemia/dehydration with associated hypovolemic hyponatremia, improved. 11. Hypothyroidism, chronic. CONSULTS DURING HOSPITAL STAY: Gastroenterology, Chris Ozuna MD. STUDIES/PROCEDURES: 1. Pelvic ultrasound on 11/15/2018. Left ovarian cyst 2.3 cm, consideration for gynecologic consultation per Radiology report. Status post hysterectomy. Nonvisualization of right ovary (report discussed with patient and son, printed copy provided to them for outpatient followup). 2. On 11/14/2018, abdomen/pelvis CT scan. Acute proctitis with associated presacral soft tissue edema. HOSPITAL COURSE: Ms. Cordova is a delightful 88-year-old female, who lives independently at home. Her son is surrogate medical decision maker, Mr. Raman Cordova lives down the street from her and is a good source of support. She presented to [facility] on 11/14/2018 with complaints of difficulty having a bowel movement, unusual for her. With progression of difficulty, and despite treatment at home, she developed lower abdominal pain and cramping, proceeded to the emergency department on 11/14. Imaging studies performed, as above. Additionally noted to have evidence of hyponatremia, with a serum sodium of 123. Observational placement requested. Additionally, mild leukocytosis with white blood cell count of 10.9 noted. Observational placement requested. The patient was on the afternoon of admission, able to have a large bowel movement and had immediate relief of abdominal discomfort. She was seen and evaluated by GI services, received gentle IV fluid hydration, was monitored once again. Tolerated a dietary trial, overnight, did have an additional soft bowel movement, no straining, no blood noted. White blood cell count has normalized, serum sodium improved to 133 following gentle IV fluids, appears stable for transition home today. I saw and evaluated the patient, spoke with her son at the bedside. Discharge copies of reports from CT as well as a pelvic ultrasound, they will follow up with Dr. Navarrete regarding incidental findings on the pelvic ultrasound. They will consider gynecologic evaluation. Colonoscopy deferred at this time. Discussed with Dr. Ozuna who is agreeable for discharge home. Antibiotics discontinued. PHYSICAL EXAMINATION: LUNGS: Clear to auscultation bilaterally. ABDOMEN: Soft, nontender, nondistended. EXTREMITIES: She has no significant lower extremity edema. MEDICATION ADJUSTMENTS: I suggested to her consideration of discontinue of iron as it may be worsening interval constipation. Additionally, recommended adding MiraLAX to her regimen. MEDICATIONS: The remainder of her home medications are unchanged. These include: 1. Amlodipine 5 mg p.o. q.p.m. 2. Aspirin 81 mg p.o. once daily. 3. Atorvastatin 10 mg p.o. q.p.m. 4. Calcium citrate/vitamin-D one tablet p.o. twice daily. 5. Vitamin D3 2000 units p.o. each evening. 6. Vitamin B12 1000 mcg p.o. once daily. 7. Levothyroxine 50 mcg p.o. once daily. 8. Lisinopril 10 mg p.o. once daily. 9. Magnesium glycinate 400 mg p.o. daily. 10. Magnesium oxide 400 mg p.o. q.p.m. 11. Meclizine 25 mg p.o. daily p.r.n. dizziness. 12. Melatonin 5 mg p.o. q.p.m. 13. Metoprolol succinate extended release 25 mg p.o. once daily. 14. Multivitamin p.o. daily. 15. [place]-3 fatty acids/fish oil 400 mg p.o. once daily. 16. MiraLAX 17 g daily, may titrate to twice daily for constipation. DIET: Regular. ACTIVITY: As tolerated. FOLLOWUP: 1. Follow up with Dr. Navarrete in the outpatient clinic in 1-2 weeks. 2. She may also follow up with GI, if needed. 3. At this time, further invasive testing such as colonoscopy deferred. Time spent on discharge 40 minutes. Job ID: [id number]
== END 2018-11-16 15:09 | disposition home or self-care (01) | DRG 394 ==
LOC: ERS 14:30 → T4-B 21:45
PROVIDERS: ADMIT Internal Medicine; ATTEND Internal Medicine
DX: K62.89 Other specified diseases of anus and rectum (principal); E87.1 Hypo-osmolality and hyponatremia; K59.00 Constipation, unspecified; E03.9 Hypothyroidism, unspecified; E78.5 Hyperlipidemia, unspecified; I10 Essential (primary) hypertension; E53.8 Deficiency of other specified B group vitamins; D64.9 Anemia, unspecified; E86.0 Dehydration; D72.825 Bandemia; I25.10 Atherosclerotic heart disease of native coronary artery without angina pectoris; Z90.49 Acquired absence of other specified parts of digestive tract; Z90.710 Acquired absence of both cervix and uterus; Z79.82 Long term (current) use of aspirin; Z79.899 Other long term (current) drug therapy; Z95.1 Presence of aortocoronary bypass graft
CPT/HCPCS: 36415; 74177; 76856; 80048; 80053; 82274; 83690; 85025; 86850; 86900; 86901; 93976; 96365; 96367; 96375; C9113; J0744; J1650; Q9966

== ENCOUNTER 2019-01-14 16:29 | Observation (INO) | payer MEDICARE, OTHER ==
[2019-01-14 17:16] LABS: Hemoglobin 11.7 g/dL (12.0-16.0); Mean Corpuscular HGB CONC 32.1 g/dL (32.0-36.0); Mean Corpuscular Hemoglobin 29.3 pg (27.0-31.0); Mean Corpuscular Volume 91.5 fL (78.0-98.0); Platelet Count 156 thou/uL (130-400); RBC Distribution Width 12.7 % (11.5-14.5); Red Blood Cell (RBC) Count 3.97 mill/uL (4.20-5.40); White Blood Cell (WBC) Count 4.1 thou/uL (4.8-10.8)
[2019-01-14 17:44] LABS: ALT (SGPT) 14 U/L (8-55); AST (SGOT) 21 U/L (5-34); Albumin 4.6 g/dL (3.4-4.8); Alkaline Phosphatase 52 U/L (40-110); Anion Gap 11 mmol/L (10-20); BUN (Urea Nitrogen) 21 mg/dL (9.8-20.1); Band 5 % (5-11); Bilirubin, Total 0.4 mg/dL (0.2-1.2); CK (CPK) 93 U/L (29-168); Calc. Creatinine Clearance 0 mL/min (70-130); Calcium 9.5 mg/dL (7.8-10.44); Carbon Dioxide 24 mmol/L (23-31); Chloride 100 mmol/L (98-107); Eosinophils 7 % (0-10); Estimated GFR-MDRD 43; Glucose 94 mg/dL (83-110); Lymphocytes 26 % (21-51); MDiff Complete? YES; Monocytes 24 % (0-10); Neutrophil 30 % (42-75); Platelet Morphology Comment Appears Adequate; Potassium 4.9 mmol/L (3.5-5.1); Protein, Total 7.6 g/dL (6.0-8.3); RBC Morphology Normal; Reactive Lymphocytes 5 % (0-10); Sodium 130 mmol/L (136-145)
[2019-01-14 21:50] LABS: Bilirubin Negative (Negative); Blood, Urine Negative (Negative); Clarity Clear (Clear); Glucose, Urine (Dipstick) Normal (Negative); Leukocyte Negative Leu/uL (Negative); Nitrite Negative (Negative); Protein, Urine (Dipstick) Negative (Neg-Trace); Urobilinogen Normal mg/dL (Less than 2)
[2019-01-14] MEDS ORDERED: Aspirin Chewable 81 MG TAB ONE (21:53)
--- NOTE | 2019-01-14 22:27 | CT ---
CT Head without IV contrast COMPARISON: 12/10/2012 HISTORY: Vertigo. TECHNIQUE: Axial CT imaging at 5 mm intervals from vertex through skull base without contrast FINDINGS: There is no evidence of an acute infarction, hemorrhage, mass effect, or midline shift. There is an a august of encephalomalacia seen within the right occipital lobe also seen on prior exam in 2013 and likely attributable to remote infarction. There is decreased attenuation seen in the periventricular white matter which is nonspecific but likely attributable to chronic small vessel ischemic changes. There is mild cerebral volume loss. The ventricular system is normal in size, shape, and position for the degree of sulcal atrophy. Visualized paranasal sinuses are clear. Osseous structures appear intact. IMPRESSION: 1. No acute intracranial abnormality demonstrated.CT of the head is stable compared to prior exam.
[2019-01-15] MEDS ORDERED: Acetaminophen 325 MG TAB PO PRN (03:51)
[2019-01-15] MEDS ORDERED: Acetaminophen 650 MG Suppository PR PRN (03:51)
[2019-01-15] MEDS ORDERED: Sodium Chloride 0.9% 1,000 ML IV SCH (04:00)
--- NOTE | 2019-01-15 05:03 | HP ---
TIME OF ASSESSMENT: 0300 hours. PRIMARY CARE PHYSICIAN: Jacki Navarrete MD HISTORY OF PRESENT ILLNESS: Ms. Cordvoa is a pleasant 88-year-old woman, who presents due to lightheadedness that started Monday. The patient states she felt worse when she would try to stand or walk. She denies having any presyncope or syncopal episodes. States she was feeling well in herself up until Monday. She was treated with meclizine and reports having some improvement. Also given IV fluids in the emergency department. The patient states she has had an episode like this back in March. She denies being unwell in recent days. Denies having any fevers, chills, or sweats. Denies having any chest pain, palpitations, or shortness of breath. No abdominal pain or cramping. Reports having normal bowel movements. No urinary symptoms. In the emergency department, the patient underwent laboratory studies, which were notable for white count of 4.1, hemoglobin 11.7, hematocrit 36.3, neutrophils of 30. CK was 93. Sodium was 130, potassium 4.9, BUN 21, creatinine 1.18, GFR 43, and LFTs unremarkable. Troponin was negative. TSH normal. She had a urinalysis done, which showed trace ketones and was otherwise unremarkable. A CT of the head was also done and negative. There was concern for CVA and she was given aspirin 324 mg. Also, given 1 L of IV fluids. PAST MEDICAL HISTORY: 1. Coronary artery disease. 2. Hypothyroidism. 3. Hypertension. 4. Hyperlipidemia. PAST SURGICAL HISTORY: 1. Appendectomy. 2. CABG x3. 3. Hysterectomy. 4. Tonsillectomy. SOCIAL HISTORY: The patient denies any tobacco use, alcohol consumption, or illicit drug use. ALLERGIES: NO KNOWN DRUG ALLERGIES. CURRENT MEDICATIONS: 1. Metoprolol succinate. 2. Atorvastatin. 3. Levothyroxine. 4. Norvasc. 5. Lisinopril. 6. Aspirin. PHYSICAL EXAMINATION: GENERAL: The patient appears well developed, well nourished, is in no acute distress. VITAL SIGNS: Temperature: 97.6, pulse 65, blood pressure 164/79, respirations 16, O2 saturation 98% on room air. HEENT: Normocephalic and atraumatic. Pupils are equal, round, reactive to light. Sclerae without icterus. Oropharynx is notable for dry oral mucosa and stomatitis. NECK: Supple. LUNGS: Clear to auscultation. CARDIAC: Regular rate and rhythm. ABDOMEN: Soft, nontender, nondistended. Normoactive bowel sounds present. EXTREMITIES: No lower leg swelling or edema. NEUROLOGIC: Alert and oriented x3. No neuro deficits. SKIN: Without rash or jaundice. She is noted to have reduced skin turgor. INVESTIGATIONS: As mentioned above in HPI. IMPRESSION AND PLAN: Ms. Cordova is an 88-year-old woman, who is being referred for management of the following; 1. Lightheaded/dizzy. The patient denies a spinning sensation and states she feels faint and lightheaded since Monday afternoon, especially when standing. She has had some improvement since receiving fluids in the emergency department. She has been able to walk to the bathroom without as much difficulty. The patient was treated for dizziness in the emergency department with meclizine; however, seems to be more of a lightheadedness associated with dehydration. We will continue gentle IV hydration. 2. Acute kidney injury. The patient with deranged renal function. GFR is currently 43 compared to 70 in October 2018. Creatinine is 1.18 compared to 0.70, BUN 21 compared to 9. We will again provide gentle IV hydration and monitor renal function. 3. Hypothyroidism. TSH is normal. We will resume home medications. 4. Hyponatremia. Sodium of 130, which appears stable compared to baseline. We will continue to monitor. 5. Gastrointestinal prophylaxis with famotidine. 6. Deep venous thrombosis prophylaxis with mechanical SCDs. 7. Code status. The patient states she is DNAR. Her surrogate decision maker would be her son, Raman Cordova. The patient's case to be discussed with attending for further recommendations. Job ID: [id number]
[2019-01-15] MEDS ORDERED: Famotidine/PF 20 mg/2ml Vial ONE (09:34)
[2019-01-15] MEDS: Famotidine/PF 20 mg/2ml Vial SLOW IVP SCH (09:46)
--- NOTE | 2019-01-15 11:24 | MRI ---
MRI BRAIN WITHOUT CONTRAST: Date: 01/15/19 INDICATION: CVA. FINDINGS: There is cortical volume loss consistent with age. Moderate chronic ischemic white matter change. There is no evidence of restricted diffusion. No evidence of acute infarct. No mass or edema. Intracranial internal carotid arteries, cerebral arteries, and basilar artery exhibit flow-voids. Dur al venous sinuses are patent. There is a focal area of cortical encephalomalacia in the posterior right temporal lobe with surround ing gliosis consistent with a remote cortical infarct. IMPRESSION: Cortical volume loss and mild chronic ischemic change consistent with age. No evidence of acute infar ct. POS: [facility]
--- NOTE | 2019-01-15 14:54 | ULT ---
CAROTID DOPPLER: INDICATIONS: Renal failure. TECHNIQUE: Ultrasound and Doppler studies performed on the extracranial carotid arteries. Color Doppler, spectra l analysis and velocity recordings obtained. FINDINGS: The ultrasound images show echogenic plaque in both bulbs and proximal ICAs. Velocity recordings are within the normal range. No evidence of hemodynamically significant stenosis identified in either internal carotid artery. The highest velocity in the right ICA is recorded at 87 cm per second. The highest left ICA velocity is recorded at 92 cm per second. Vertebrals show antegr drew flow. IMPRESSION: 1. There is moderate echogenic plaque in the bulbs bilaterally. 2. No evidence of hemodynamically significant stenosis. POS: [facility]
[2019-01-15 17:16] VITALS: BMI 22.3
[2019-01-15] MEDS ORDERED: Atorvastatin Calcium 10 MG TAB PO SCH (21:00)
[2019-01-16 04:48] LABS: BUN (Urea Nitrogen) 11 mg/dL (9.8-20.1); Calc. Creatinine Clearance 42 mL/min (70-130); Calcium 8.9 mg/dL (7.8-10.44); Carbon Dioxide 22 mmol/L (23-31); Estimated GFR-MDRD 63; Glucose 86 mg/dL (83-110); Magnesium 1.8 mg/dL (1.6-2.6)
[2019-01-16 04:56] LABS: Band 4 % (5-11); Eosinophils 3 % (0-10); Hemoglobin 11.2 g/dL (12.0-16.0); Hypochromia SLIGHT = 6-15 cells (100X) (0-5/hpf); Lymphocytes 29 % (21-51); MDiff Complete? YES; Mean Corpuscular HGB CONC 33.6 g/dL (32.0-36.0); Mean Corpuscular Hemoglobin 30.6 pg (27.0-31.0); Mean Corpuscular Volume 90.9 fL (78.0-98.0); Mean Platelet Volume 8.3 fL (7.4-10.4); Monocytes 17 % (0-10); Neutrophil 47 % (42-75); Platelet Count 133 thou/uL (130-400); Platelet Morphology Comment Appears Adequate; RBC Distribution Width 12.6 % (11.5-14.5); Red Blood Cell (RBC) Count 3.68 mill/uL (4.20-5.40); White Blood Cell (WBC) Count 4.1 thou/uL (4.8-10.8)
[2019-01-16 04:59] LABS: Anion Gap 11 mmol/L (10-20); Chloride 107 mmol/L (98-107); Potassium 4.2 mmol/L (3.5-5.1); Sodium 136 mmol/L (136-145)
[2019-01-16] MEDS ORDERED: Levothyroxine Sodium 50 MCG TAB PO SCH (06:00)
[2019-01-16] MEDS: Famotidine/PF 20 mg/2ml Vial SLOW IVP SCH (08:43)
[2019-01-16] MEDS ORDERED: Amlodipine 5 MG TAB PO SCH (09:00)
[2019-01-16] MEDS ORDERED: Aspirin 81 mg Enteric Coated Tablet PO SCH (09:00)
[2019-01-16] MEDS ORDERED: Lisinopril 10 MG TAB PO SCH (09:00)
[2019-01-16 11:23] VITALS: BP 155/76
[2019-01-16 11:48] VITALS: TEMP 98.1
== END 2019-01-16 12:20 | disposition home or self-care (01) ==
LOC: ERS 16:29 → ERHOLD 22:30 → 2SE 01-15 15:48
PROVIDERS: ADMIT Internal Medicine; ATTEND Internal Medicine
DX: R42 Dizziness and giddiness (principal); I25.10 Atherosclerotic heart disease of native coronary artery without angina pectoris; E03.9 Hypothyroidism, unspecified; I10 Essential (primary) hypertension; E78.5 Hyperlipidemia, unspecified; N17.9 Acute kidney failure, unspecified; E87.1 Hypo-osmolality and hyponatremia; Z66 Do not resuscitate; Z79.82 Long term (current) use of aspirin; Z79.899 Other long term (current) drug therapy; Z95.1 Presence of aortocoronary bypass graft
CPT/HCPCS: 70450; 70551; 80048; 81003; 82550; 83735; 84443; 84484; 85025; 93005; 93880; 96361 ×3; 96374; 96376; 97139; 99285; G0378 ×4; 36415; 80053; 96360; S0028

== ENCOUNTER 2019-02-16 21:32 | Inpatient (IN) | payer MEDICARE, OTHER ==
[2019-02-16 22:30] LABS: Hemoglobin 11.5 g/dL (12.0-16.0); Mean Corpuscular HGB CONC 33.4 g/dL (32.0-36.0); Mean Corpuscular Volume 89.6 fL (78.0-98.0); Red Blood Cell (RBC) Count 3.83 mill/uL (4.20-5.40); White Blood Cell (WBC) Count 4.7 thou/uL (4.8-10.8)
[2019-02-16 22:44] LABS: Band 11 % (5-11); Eosinophils 1 % (0-10); Lymphocytes 17 % (21-51); MDiff Complete? YES; Mean Platelet Volume 8.7 fL (7.4-10.4); Monocytes 4 % (0-10); Neutrophil 67 % (42-75); Platelet Count 137 thou/uL (130-400); RBC Distribution Width 12.2 % (11.5-14.5)
[2019-02-16 22:45] LABS: ALT (SGPT) 18 U/L (8-55); AST (SGOT) 19 U/L (5-34); Albumin 3.8 g/dL (3.4-4.8); Alkaline Phosphatase 64 U/L (40-110); Anion Gap 11 mmol/L (10-20); BUN (Urea Nitrogen) 22 mg/dL (9.8-20.1); Bilirubin, Total 0.3 mg/dL (0.2-1.2); Calc. Creatinine Clearance 0 mL/min (70-130); Calcium 9.9 mg/dL (7.8-10.44); Carbon Dioxide 27 mmol/L (23-31); Chloride 102 mmol/L (98-107); Estimated GFR-MDRD 41; Globulin 3.1 g/dL (2.4-3.5); Glucose 112 mg/dL (83-110); Potassium 4.1 mmol/L (3.5-5.1); Protein, Total 6.9 g/dL (6.0-8.3); Sodium 136 mmol/L (136-145)
[2019-02-16] MEDS ORDERED: Piperacillin/Tazobactam 3.375 GM VIAL ONE (23:08)
[2019-02-17] MEDS ORDERED: Ondansetron PF 4 MG/2 ML Vial IVP PRN (00:56)
[2019-02-17] MEDS ORDERED: Bisacodyl 5 MG TAB PO PRN (00:56)
[2019-02-17] MEDS ORDERED: Acetaminophen 325 MG TAB PO PRN (00:56)
[2019-02-17] MEDS ORDERED: HYDROcodone/Acetaminophen 5/325 mg Tablet PO PRN (00:56)
[2019-02-17] MEDS ORDERED: Clindamycin 150 MG CAP PO SCH ×3 (01:00→09:00)
[2019-02-17] MEDS ORDERED: Vancomycin HCl 1 GM in Premix Bag 1 BAG IVPB ONE (01:00)
--- NOTE | 2019-02-17 01:49 | HP ---
PRESENTING COMPLAINT: Leg swelling with redness. HISTORY OF PRESENT ILLNESS: Ms. Kimberly Cordova is an 88-year-old female with past medical history of hypertension, hyperlipidemia, coronary artery disease, hypothyroidism, who developed redness in the lower extremity since the last five days. Redness initially started as diffuse patches just above the ankle on the left leg, which later became more generalized in both legs, are now worsening in intensity and size and extending towards the knee. She presented to the ED because of worsening symptoms today. She admits to also associated increasing leg swelling in both legs. She denies any leg swelling prior to onset of the redness. She denies any pain in both feet or legs. She denies any fever or chills. In the ED, she was noted with marked bilateral lower extremity erythema. She has been admitted for possible bilateral cellulitis. Of note, the patient has history of varicose veins in both lower extremity. PAST MEDICAL HISTORY: Hypertension, hyperlipidemia, coronary artery disease, and hypothyroidism. PAST SURGICAL HISTORY: CABG x3, hysterectomy, tonsillectomy, appendectomy. SOCIAL HISTORY: Resides in a community. She lives alone. No history of alcohol or tobacco or illicit drug use. ALLERGIES: NO KNOW DRUG ALLERGY. MEDICATIONS: Reviewed include Toprol 25 daily, lisinopril 10 daily, Synthroid 50 mcg daily, Lipitor 10 at bedtime, aspirin 81 daily. REVIEW OF SYSTEMS: All systems reviewed x14 negative except as noted above. PHYSICAL EXAMINATION: VITAL SIGNS: Blood pressure of 120/64, pulse of 83, respiratory rate of 16, temperature 97.7, O2 saturation 95% on room air. GENERAL: Elderly female, not in any distress. HEENT: Pupils equal, reactive to light. Head is atraumatic, normocephalic. NECK: No JVD. No carotid bruit. RESPIRATORY: Good air entry. No crepitation. CARDIOVASCULAR: S1, S2. Rate and rhythm regular. Sternotomy scar in situ. GI: Abdomen is full, soft, nontender. Bowel sounds positive. RECTAL: Deferred. EXTREMITIES: 2+ pedal and tight shiny edema extending below the knee. Notable maculopapular erythematous rashes bilaterally extending below the knee margin up to the distal toes. No area of tenderness noted. No specific area of focal abscess also noted. Erythema is non-blanching. NEUROLOGIC: The patient is alert, oriented. Cranial nerves 2 through 12 grossly intact. LABORATORY DATA: WBC 4.7, hemoglobin 11.5, platelet 137, neutrophils 67%, 11% bands. Sodium 136, potassium 4.1, calcium 9.9. AST, alkaline phosphatase normal. C-reactive protein of 7.2, albumin 3.8, lactic acid 1.5. Creatinine of 1.25, baseline of 0.7 to 0.8. IMPRESSION: 1. Bilateral lower extremity cellulitis. 2. Hypertension. 3. Acute renal insufficiency or acute renal failure. PLAN: 1. Bilateral cellulitis, likely due to infection with underlying varicose veins. We elevate lower extremities to aid leg swelling. We start empirical antibiotics with vancomycin and clindamycin. Obtain blood culture x2. We do pain medicine as needed. Monitor for improvement in her symptoms. We will also obtain ultrasound of the lower extremities to rule out associated DVT. 2. Hypertension. We will continue recurrent blood pressure regimen better. Hold lisinopril for now. 3. Acute renal failure. We will do gentle IV fluid as tolerated. If worsening lower extremity swelling then IV fluids can be discontinued. Monitor repeat creatinine in a.m. 4. DVT prophylaxis with subcutaneous Lovenox. 5. Advance directives. The patient is a full code. Total time spent in discussion with patient and family as well as evaluation and explaining plan of care greater than 60 minutes. Job ID: [id number]
[2019-02-17 02:20] VITALS: BMI 21.5
[2019-02-17] MEDS: Sodium Chloride 0.9% 1,000 ML IV SCH (02:42)
[2019-02-17 04:12] LABS: Bilirubin Negative (Negative); Blood, Urine Negative (Negative); Clarity Clear (Clear); Glucose, Urine (Dipstick) Normal (Negative); Leukocyte Negative Leu/uL (Negative); Nitrite Negative (Negative); Protein, Urine (Dipstick) Negative (Neg-Trace); RBC/HPF 0-3 HPF (0-3); Squamous Epithelial None Seen HPF (0-3); Urobilinogen Normal mg/dL (Less than 2); WBC/HPF 0-3 HPF (0-3)
[2019-02-17 04:18] LABS: Bacteria/HPF 1+ HPF (None Seen)
[2019-02-17] MEDS ORDERED: Levothyroxine Sodium 50 MCG TAB PO SCH (06:00)
[2019-02-17] MEDS ORDERED: Aspirin Chewable 81 MG TAB PO SCH (09:00)
[2019-02-17] MEDS ORDERED: Amlodipine 5 MG TAB PO SCH ×2 (09:00→21:00)
[2019-02-17 09:39] LABS: Anion Gap 14 mmol/L (10-20); BUN (Urea Nitrogen) 18 mg/dL (9.8-20.1); Calc. Creatinine Clearance 40 mL/min (70-130); Calcium 9.3 mg/dL (7.8-10.44); Carbon Dioxide 22 mmol/L (23-31); Chloride 106 mmol/L (98-107); Estimated GFR-MDRD 60; Glucose 98 mg/dL (83-110); Potassium 3.9 mmol/L (3.5-5.1); Sodium 138 mmol/L (136-145)
[2019-02-17] MEDS: cefTRIAXone\\ROCEPHIN 1 GM in Sodium Chloride 0.9% 100 ML IVPB SCH (10:02)
[2019-02-17] MEDS: Calcium Carbonate + Vit D 1 TAB PO SCH ×2 (10:09→20:43)
[2019-02-17] MEDS: Aspirin 81 mg Enteric Coated Tablet PO SCH (10:09)
[2019-02-17] MEDS: Metoprolol Tartrate 25 MG TAB PO SCH (10:10)
[2019-02-17] MEDS: Ferrous Sulfate 325 MG TAB PO SCH (10:10)
[2019-02-17] MEDS: Famotidine 20 MG TAB PO SCH (10:11)
[2019-02-17] MEDS: Enoxaparin Sodium 30 MG/0.3 ML SYRINGE SC SCH (10:18)
[2019-02-17 11:02] LABS: Band 13 % (5-11); Eosinophils 6 % (0-10); Hemoglobin 11.1 g/dL (12.0-16.0); Lymphocytes 23 % (21-51); MDiff Complete? YES; Mean Corpuscular HGB CONC 33.8 g/dL (32.0-36.0); Mean Corpuscular Hemoglobin 30.1 pg (27.0-31.0); Mean Corpuscular Volume 88.9 fL (78.0-98.0); Mean Platelet Volume 8.5 fL (7.4-10.4); Monocytes 11 % (0-10); Neutrophil 45 % (42-75); Platelet Count 124 thou/uL (130-400); RBC Distribution Width 12.4 % (11.5-14.5); White Blood Cell (WBC) Count 3.4 thou/uL (4.8-10.8)
--- NOTE | 2019-02-17 12:28 | ULT ---
Bilateral lower extremity venous Doppler ultrasound: 02/17/2019 HISTORY: Pain, swelling, edema, assess for DVT TECHNIQUE: Multiplanar grayscale sonographic imaging of the venous structures of bilateral lower extr emities obtained with color flow and spectral analysis FINDINGS: The common femoral vein, greater saphenous vein, profunda femoral vein, femoral vein, and p opliteal vein appear patent bilaterally. No evidence for deep venous thrombosis is seen within either lower extremity. There is probable superficial clot within the right mid and distal posterior tibial vein. The left po sterior tibial vein appears patent IMPRESSION: No evidence for DVT. Probable small volume thrombus within the right posterior tibial vei n.
[2019-02-17] MEDS ORDERED: Melatonin 3 MG TAB PO SCH (21:00)
[2019-02-17] MEDS ORDERED: Multivit, Therapeutic 1 TAB PO SCH (21:00)
[2019-02-17] MEDS ORDERED: MAGNESIUM GLYCINATE 400 MG PO SCH (21:00)
[2019-02-17] MEDS ORDERED: Atorvastatin Calcium 10 MG TAB PO SCH ×2 (21:00)
[2019-02-17] MEDS ORDERED: Vancomycin HCl 750 MG in Sodium Chloride 0.9% 250 ML 250 ML IVPB SCH (22:00)
[2019-02-18] MEDS: Sodium Chloride 0.9% 1,000 ML IV SCH (01:31)
[2019-02-18] MEDS ORDERED: Levothyroxine Sodium 50 MCG TAB PO SCH (06:00)
[2019-02-18] MEDS ORDERED: Furosemide 20 MG/2 ML VIAL SLOW IVP SCH (07:15)
[2019-02-18] MEDS: cefTRIAXone\\ROCEPHIN 1 GM in Sodium Chloride 0.9% 100 ML IVPB SCH (08:34)
[2019-02-18] MEDS: Ferrous Sulfate 325 MG TAB PO SCH (08:35)
[2019-02-18] MEDS: Calcium Carbonate + Vit D 1 TAB PO SCH (08:35)
[2019-02-18] MEDS: Famotidine 20 MG TAB PO SCH (08:35)
[2019-02-18] MEDS: Aspirin 81 mg Enteric Coated Tablet PO SCH (08:35)
[2019-02-18] MEDS: Enoxaparin Sodium 30 MG/0.3 ML SYRINGE SC SCH (08:36)
[2019-02-18] MEDS: Metoprolol Tartrate 25 MG TAB PO SCH (08:36)
[2019-02-18 16:03] VITALS: BP 112/72; TEMP 97.4
--- NOTE | 2019-02-19 14:41 | DIS ---
DATE OF ADMISSION: 02/16/2019 DATE OF DISCHARGE: 02/18/2019 DISCHARGE DIAGNOSES: As of the followin. 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 2. Hypertension. 3. Hyperlipidemia. 4. Hypothyroidism. 5. Acute kidney injury, resolved. 6. Anemia and mild leukopenia. HOSPITAL COURSE: The patient is an 88-year-old female, who initially presented to the hospital on 02/17 with rash to her bilateral lower extremity. The patient states that she does not recall any travels or doing any yard work. She noticed one morning she started having this petechial rash to her lower extremity. It was not itchy and no pain. However, the rash worsened according to the patient's son at this time. She was brought into the hospital for further evaluation. She had no oral lesions. She had no lesions anywhere else on her body except for her stocking-like distribution to her lower extremity. The patient denies any fevers or chills. She appeared nontoxic. Her ESR was mildly elevated in her 60s. CRP was elevated at 7. She did have a little bit of leukopenia but that is not acute, it has been going on. She did have some mild anemia, which again is not acute. Her lab work on the indicated decrease of platelets, but patient was noted to be a hard stick and very small specimen was obtained per patient's family. The patient clinically appears very asymptomatic. She initially was put on broad-spectrum antibiotics, which I discontinued. However, I did send her with Keflex to prevent any superimposed infection. The patient had no fever. She was up ambulating, had a good appetite. I did talk with the patient and the patient's son and recommended to see a ecology teacher and they do see Dr. Limon, especially since we do not have a reason for her rash. She recently has not been prescribed any new antibiotics or any new medications. She normally has not changed her pharmacy or other prescriber. The only thing that she can remember is she wore some socks with some silver threading, which could have possibly caused her to have this rash. However, this is unclear. I have recommended her to follow up with Dermatology for possible even maybe a biopsy. I do not think her immune is any sort of autoimmune process given her age of 88. It appears to be nonpalpable and nonblanchable rash, which is all over her lower extremities [id number] bilaterally. HOME MEDICATIONS: Her home medications will be, 1. Iron 45 mg daily. 2. Metoprolol 25 mg daily. 3. Lisinopril 10 mg daily. 4. Levothyroxine 50 mcg daily. 5. Lasix 20 mg as needed, I only prescribed her 5. 6. Keflex 100 mg q.12 hours. 7. Aspirin 81 mg daily. 8. Lipitor 10 mg at bedtime. I also went over her medications. There were multiple medications that can cause the rash. I continued all medications, nothing were the offenders. The patient also denies taking any significant other prescription except from multivitamin and some vitamin D. PHYSICAL EXAMINATION: VITAL SIGNS: Temperature 97.4, 85, 16, 94% on room air, and 112/72. GENERAL: She is awake, alert, and oriented x3. Does not appear in distress. CV: S1, S2 present. No murmurs, rubs, or gallops. ABDOMEN: Soft and nontender. Bowel sounds are present x2. Job ID: [id number]
== END 2019-02-18 15:47 | disposition home or self-care (01) | DRG 603 ==
LOC: ERS 21:32 → T4-B 22:30 → ERS 02-17 00:44
PROVIDERS: ADMIT Internal Medicine; ATTEND Internal Medicine
DX: L03.115 Cellulitis of right lower limb (principal); N17.9 Acute kidney failure, unspecified; I10 Essential (primary) hypertension; L03.116 Cellulitis of left lower limb; E78.5 Hyperlipidemia, unspecified; I25.10 Atherosclerotic heart disease of native coronary artery without angina pectoris; E03.9 Hypothyroidism, unspecified; Z95.1 Presence of aortocoronary bypass graft; Z90.49 Acquired absence of other specified parts of digestive tract; Z90.89 Acquired absence of other organs; Z90.710 Acquired absence of both cervix and uterus; Z79.899 Other long term (current) drug therapy
CPT/HCPCS: 36415; 80048; 80053; 81001; 83605; 85025; 85652; 86140; 87040; 93970; J0696; J1650; J1940; J2543; J3370; J3490

== ENCOUNTER 2019-02-21 17:23 | Inpatient (IN) | payer MEDICARE, OTHER ==
[2019-02-21 18:21] LABS: Hemoglobin 10.9 g/dL (12.0-16.0); Mean Corpuscular HGB CONC 33.5 g/dL (32.0-36.0); Mean Corpuscular Hemoglobin 29.9 pg (27.0-31.0); Mean Corpuscular Volume 89.2 fL (78.0-98.0); Mean Platelet Volume 7.5 fL (7.4-10.4); Platelet Count 172 thou/uL (130-400); RBC Distribution Width 12.3 % (11.5-14.5); Red Blood Cell (RBC) Count 3.65 mill/uL (4.20-5.40); White Blood Cell (WBC) Count 7.3 thou/uL (4.8-10.8)
--- NOTE | 2019-02-21 18:26 | RAD ---
RADIOGRAPH CHEST 1 VIEW: DATE: 02/21/2019 TIME: 6:15 PM HISTORY: 88-year-old female with abdominal pain and rash. COMPARISON: 10/09/2017 FINDINGS: Again noted is the left retrocardiac mass with air-fluid level. New finding of silhouetting of the le ft hemidiaphragm. No cardiomegaly. Again noted are the signs of previous CABG. No pulmonary edema. No consolidation in the right lung or left upper lobe. No pneumothorax. IMPRESSION: 1) changes at the left lung base, nonspecific: Left pleural effusion versus left lower lobe atelectas is versus infiltrate. 2.) Moderate size hiatal hernia. 3) evidence of coronary atherosclerotic disease: Status post coronary artery bypass graft surgery.
[2019-02-21 18:37] LABS: Band 16 % (5-11); Lymphocytes 7 % (21-51); MDiff Complete? YES; Monocytes 16 % (0-10); Neutrophil 60 % (42-75); Ovalocytes SLIGHT = 2-5 cells (100X) (0-1/hpf); Platelet Morphology Comment Appears Adequate; Polychromasia SLIGHT = 2-3 cells (100X) (0-2/hpf)
[2019-02-21 18:42] LABS: ALT (SGPT) 18 U/L (8-55); AST (SGOT) 21 U/L (5-34); Albumin 3.6 g/dL (3.4-4.8); Alkaline Phosphatase 70 U/L (40-110); Anion Gap 12 mmol/L (10-20); BUN (Urea Nitrogen) 30 mg/dL (9.8-20.1); Bilirubin, Total 0.4 mg/dL (0.2-1.2); Calc. Creatinine Clearance 0 mL/min (70-130); Calcium 9.3 mg/dL (7.8-10.44); Carbon Dioxide 26 mmol/L (23-31); Chloride 102 mmol/L (98-107); Estimated GFR-MDRD 23; Globulin 2.4 g/dL (2.4-3.5); Glucose 134 mg/dL (83-110); Potassium 4.3 mmol/L (3.5-5.1); Sodium 136 mmol/L (136-145)
--- NOTE | 2019-02-21 21:10 | CT ---
CT ABDOMEN AND PELVIS WITHOUT IV CONTRAST: Date: 02/21/19 INDICATION: Lower abdominal pain. Constipation. COMPARISON: CT abdomen and pelvis dated 11/14/18. FINDINGS: Images through lung bases show small bilateral pleural effusions and bibasilar atelectasis. Large fixed diaphragmatic hernia again noted with a large portion of the stomach above diaphragm. Thi s is a stable finding. Liver, spleen, and pancreas are unremarkable. Adrenal glands unremarkable. Kidneys unremarkable. No hydronephrosis. Exophytic cyst off inferior left kidney is stable. Small bowel loops are normal caliber. Colon unremarkable. Left colon has sigmoid diverticulosis witho ut evidence of diverticulitis. Images through the pelvis show evidence of hysterectomy. Low density circumscribed mass in the left p anthony is unchanged from prior exam, probably representing residual ovary. No free fluid or adenopathy . IMPRESSION: 1. Small bilateral pleural effusions and bibasilar atelectasis. 2. Large fixed diaphragmatic hernia. 3. No acute intra-abdominal process. POS: [facility]
[2019-02-21 22:11] VITALS: BMI 24.0
[2019-02-21] MEDS ORDERED: Acetaminophen 325 MG TAB PO PRN (23:42)
[2019-02-22] MEDS ORDERED: Ondansetron PF 4 MG/2 ML Vial IVP PRN (02:05)
[2019-02-22] MEDS ORDERED: Ondansetron ODT 4 MG TAB PO PRN (02:05)
[2019-02-22] MEDS ORDERED: hydrALAZINE 20 MG/ML VIAL SLOW IVP PRN (02:05)
[2019-02-22] MEDS: Sodium Chloride 0.9% 1,000 ML IV SCH ×2 (02:30→22:45)
[2019-02-22 02:43] LABS: Bacteria/HPF None Seen HPF (None Seen); Bilirubin Negative (Negative); Blood, Urine 2+ (Negative); Clarity Clear (Clear); Glucose, Urine (Dipstick) Normal (Negative); Leukocyte Negative Leu/uL (Negative); Nitrite Negative (Negative); Protein, Urine (Dipstick) 200 mg/dL (Neg-Trace); RBC/HPF 21-50 HPF (0-3); Squamous Epithelial None Seen HPF (0-3); Urobilinogen Normal mg/dL (Less than 2)
[2019-02-22 02:44] LABS: Urine Culture Reflex Yes Yes
--- NOTE | 2019-02-22 02:49 | HP ---
PRIMARY CARE PROVIDER: Dr. Jacki Navarrete. CHIEF COMPLAINT: Abdominal pain and weakness. HISTORY OF PRESENT ILLNESS: This is an 88-year-old female, who was recently admitted and discharged from [facility] from 02/16 through 02/18 for bilateral lower extremity rash concerning for leukocytoclastic vasculitis as well as a right posterior tibial vein thrombosis, managed with aspirin. The patient was discharged home with instructions to follow up with Dermatology for evaluation of her lower extremity rash. The patient became increasingly weak with some abdominal bloating and lower extremity swelling in the last 48 hours. The patient was discharged on Lasix 20 mg daily, however, took the medication without specific improvement in her lower extremity edema. The patient denied any fever, chills, nausea, vomiting, or diarrhea. The patient had noticed decreased urination in the last 24 hours. The patient denied any direct trauma injury, travel history, or dietary indiscretion. In the emergency room, the patient underwent general evaluation including CT of the abdomen and pelvis showing small bilateral pleural effusions with bibasilar atelectasis, but no acute intraabdominal process. The patient was referred to the Hospitalist Service for further evaluation. PAST MEDICAL HISTORY: 1. 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 2. Hypertension. 3. Hyperlipidemia. 4. Hypothyroidism. 5. Coronary artery disease. PAST SURGICAL HISTORY: 1. Status post coronary artery bypass grafting x3 vessels. 2. Status post hysterectomy. 3. Status post tonsillectomy. 4. Status post appendectomy. CURRENT MEDICATIONS: 1. Norvasc 5 mg p.o. daily. 2. Enteric-coated aspirin 81 mg p.o. daily. 3. Lipitor 10 mg p.o. at bedtime. 4. Calcium carbonate with vitamin D3 one tablet p.o. b.i.d. 5. Vitamin D3 at 2000 units p.o. at bedtime. 6. Vitamin B12 at 1000 mcg p.o. daily. 7. Ferrous sulfate 45 mg p.o. daily. 8. [place]on-3 fatty acids 400 mg p.o. daily. 9. Levothyroxine 50 mcg p.o. daily. 10. Lisinopril 10 mg p.o. daily. 11. Magnesium glycinate 400 mg p.o. at bedtime. 12. Meclizine 25 mg p.o. daily. 13. Melatonin 5 mg p.o. at bedtime. 14. Metoprolol tartrate 25 mg p.o. daily. 15. Multivitamin 1 tablet p.o. at bedtime. 16. Lasix 20 mg p.o. daily. ALLERGIES: NO KNOWN DRUG ALLERGIES. FAMILY HISTORY: No inheritable diseases per patient report. SOCIAL HISTORY: Resides in [place], [place], with her son living nearby. No current alcohol, tobacco, or illicit drug use. Ambulatory without assistance or difficulty. Functional of all activities of daily living. Accompanied by her son in the hospital. REVIEW OF SYSTEMS: CONSTITUTIONAL: Negative for weight loss or gain, ability to conduct usual activities. SKIN: Negative for rash, itching. EYES: Negative for double vision, pain. ENT/MOUTH: Negative for nose bleeding, neck stiffness, pain, tenderness. CARDIOVASCULAR: Negative for palpitations, dyspnea on exertion, orthopnea. RESPIRATORY: Negative for shortness of breath, wheezing, cough, hemoptysis, fever or night sweats. GASTROINTESTINAL: Negative for poor appetite, abdominal pain, heartburn, nausea, vomiting, constipation, or diarrhea. GENITOURINARY: Negative for urgency, frequency, dysuria, nocturia. MUSCULOSKELETAL: Negative for pain, swelling. NEUROLOGIC/PSYCHIATRIC: Negative for anxiety, depression. ALLERGY/IMMUNOLOGIC: Negative for skin rash, bleeding tendency. Otherwise negative except as stated per HPI. PHYSICAL EXAMINATION: VITAL SIGNS: On admission, blood pressure 157/77, pulse 89, respiratory rate 20, temperature 98.4 degrees Fahrenheit, O2 saturation 93% on 2 L/minute by nasal cannula. GENERAL APPEARANCE: This is an 88-year-old female, alert and oriented x3, pleasant, in no acute distress. HEENT: Pupils are equal, round, reactive to light and accommodation. Extraocular muscles are intact. No scleral icterus. No conjunctival injection. Nares are patent. OP is clear. Teeth in good repair. NECK: Supple. No cervical adenopathy. No thyromegaly. No carotid bruits. No JVD appreciated. Cervical spine with full active and passive range of motion. No meningeal signs noted. CHEST: Lungs are clear to auscultation bilaterally. CARDIOVASCULAR: S1, S2 without noted murmur, rub, or gallop. ABDOMEN: Rounded with mild tenderness to palpation in the bilateral lower quadrants. Bowel sounds are positive in all 4 quadrants. No palpable mass. No rebound or guarding noted. EXTREMITIES: Warm and dry with fair turgor. Minimal edema to the bilateral lower extremities. VASCULAR: Pulses palpable distally at the dorsalis pedis, posterior tibial, and popliteal arteries bilaterally. Capillary refill less than 2 seconds. NEUROLOGIC: Cranial nerves 2 through 12 are grossly intact. No focal or lateralizing signs appreciated. SKIN: Nonblanching purpura of the lower extremities on the right greater than left lower extremity at the knee and below. Palm and plantar aspect of the feet sparing. PERTINENT LABORATORY AND X-RAY FINDINGS: Sodium 136, potassium 4.3, chloride 102, CO2 of 26, BUN 30, creatinine 2.07, estimated GFR of 23, glucose 134, calcium 9.3. LFTs within normal limits. CRP 7.09. BNP 344. TSH 1.51. CBC showed white blood cell count of 7.3, hemoglobin 11, hematocrit 33, platelet count 172 with 60% neutrophils and 16% bands. Portable chest x-ray dated 02/21/2019 showed moderate-sized hiatal hernia. Changes of the left lung base, nonspecific. Left pleural effusion versus left lower lobe infiltrate or atelectasis. CT of the abdomen and pelvis dated 02/21/2019 showed small bilateral pleural effusions and bibasilar atelectasis. Large fixed diaphragmatic hernia. No acute intraabdominal process. EKG dated 02/21/2019, by my interpretation, shows sinus mechanism with heart rates in the 80s. Normal R-wave progression noted in precordial leads. Normal axis. No acute ST-T wave changes appreciated. ASSESSMENT/PLAN: 1. Acute kidney injury on chronic kidney disease stage 3. We will place in observation status on the medical floor. Continue intravenous normal saline at 50 mL/h. Hold lisinopril and avoid nephrotoxic agents and contrast media. Repeat creatinine in the a.m. 2. Abdominal pain secondary to #1. Continue symptomatic management and see #1 above. 3. Leukocytoclastic vasculitis. Suspected given patient's clinical presentation. Outpatient referral for Dermatology followup. 4. Hypertension. Resume home antihypertensive regimen and monitor clinical response. 5. Hypothyroidism. Continue levothyroxine 50 mcg p.o. daily. 6. Prophylaxis. SCDs held due to lower extremity edema. Pepcid 20 mg p.o. b.i.d. CODE STATUS: Full. SURROGATE MEDICAL DECISION MAKER: Patient's son. Job ID: [id number]
[2019-02-22 05:38] LABS: Band 8 % (5-11); Hemoglobin 9.6 g/dL (12.0-16.0); Hypochromia SLIGHT = 6-15 cells (100X) (0-5/hpf); Lymphocytes 9 % (21-51); MDiff Complete? YES; Mean Corpuscular HGB CONC 33.1 g/dL (32.0-36.0); Mean Corpuscular Hemoglobin 30.4 pg (27.0-31.0); Mean Corpuscular Volume 91.8 fL (78.0-98.0); Mean Platelet Volume 7.7 fL (7.4-10.4); Monocytes 9 % (0-10); Neutrophil 74 % (42-75); Platelet Count 145 thou/uL (130-400); Platelet Morphology Comment Appears Adequate; RBC Distribution Width 12.3 % (11.5-14.5); Red Blood Cell (RBC) Count 3.16 mill/uL (4.20-5.40); White Blood Cell (WBC) Count 7.4 thou/uL (4.8-10.8)
[2019-02-22 05:42] LABS: Anion Gap 8 mmol/L (10-20); BUN (Urea Nitrogen) 34 mg/dL (9.8-20.1); Calc. Creatinine Clearance 19 mL/min (70-130); Calcium 8.4 mg/dL (7.8-10.44); Carbon Dioxide 26 mmol/L (23-31); Chloride 103 mmol/L (98-107); Estimated GFR-MDRD 23; Glucose 102 mg/dL (83-110); Potassium 4.3 mmol/L (3.5-5.1); Sodium 133 mmol/L (136-145)
[2019-02-22] MEDS: Levothyroxine Sodium 50 MCG TAB PO SCH (06:16)
[2019-02-22] MEDS ORDERED: 1/2 NS w/KCL 20 mEq 1,000 ML IV SCH (08:30)
[2019-02-22] MEDS: Ferrous Sulfate 325 MG TAB PO SCH (08:45)
[2019-02-22] MEDS: Aspirin 81 mg Enteric Coated Tablet PO SCH (08:45)
[2019-02-22] MEDS: Metoprolol Tartrate 25 MG TAB PO SCH (08:45)
[2019-02-22] MEDS: Calcium Carbonate + Vit D 1 TAB PO SCH ×2 (08:45→20:37)
[2019-02-22] MEDS: Famotidine 20 MG TAB PO SCH (08:46)
[2019-02-22] MEDS: Fish Oil 1,000 MG CAP PO SCH (08:46)
[2019-02-22] MEDS: Multivit, Therapeutic 1 TAB PO SCH (08:46)
[2019-02-22] MEDS: Cyanocobalamin (Vitamin B-12) 1,000 MCG TAB PO SCH (08:47)
[2019-02-22] MEDS ORDERED: Furosemide 20 MG/2 ML VIAL SLOW IVP SCH (09:00)
[2019-02-22] MEDS: Atorvastatin Calcium 10 MG TAB PO SCH (20:37)
[2019-02-23] MEDS: Acetaminophen 500 MG TAB PO PRN (03:07)
[2019-02-23 04:50] LABS: Anion Gap 11 mmol/L (10-20); BUN (Urea Nitrogen) 36 mg/dL (9.8-20.1); Calc. Creatinine Clearance 21 mL/min (70-130); Calcium 8.2 mg/dL (7.8-10.44); Carbon Dioxide 22 mmol/L (23-31); Chloride 102 mmol/L (98-107); Estimated GFR-MDRD 25; Glucose 101 mg/dL (83-110); Sodium 131 mmol/L (136-145)
[2019-02-23] MEDS: Levothyroxine Sodium 50 MCG TAB PO SCH (06:27)
[2019-02-23] MEDS: Ferrous Sulfate 325 MG TAB PO SCH (08:30)
[2019-02-23] MEDS: Fish Oil 1,000 MG CAP PO SCH (08:30)
[2019-02-23] MEDS: Famotidine 20 MG TAB PO SCH (08:30)
[2019-02-23] MEDS: Calcium Carbonate + Vit D 1 TAB PO SCH ×2 (08:30→20:53)
[2019-02-23] MEDS: Metoprolol Tartrate 25 MG TAB PO SCH (08:30)
[2019-02-23] MEDS: Aspirin 81 mg Enteric Coated Tablet PO SCH (08:30)
[2019-02-23] MEDS: Cyanocobalamin (Vitamin B-12) 1,000 MCG TAB PO SCH (08:30)
[2019-02-23] MEDS: Multivit, Therapeutic 1 TAB PO SCH (08:30)
--- NOTE | 2019-02-23 12:14 | PRG ---
DATE OF SERVICE: 02/23/2019 SUBJECTIVE: The patient is seen and examined at the bedside. She seems to be doing better. Her son is present in the room during my visit. OBJECTIVE: VITAL SIGNS: Blood pressure is 135/69, pulse is 80, temperature 97.9, respirations 18, O2 saturation is 91% on 2 L by nasal cannula. HEAD: Atraumatic and normocephalic. Eyes are PERRLA. Sclerae are nonicteric. Oral mucosa is moist. LUNGS: Breath sounds somewhat diminished at both bases. HEART: S1, S2 normal. ABDOMEN: Soft, nontender, nondistended. EXTREMITIES: No clubbing, cyanosis. There is 1+ peripheral edema on both lower extremities. NEUROLOGIC: She follows my commands. She moves her all four extremities. LABORATORY DATA: Labs showed sodium of 131, potassium 4.0, chloride 102, CO2 of 22, BUN 36, creatinine 1.87. IMPRESSION: 1. Acute kidney injury, most likely this is prerenal. Her kidney function was relatively good before she was placed on Lasix and sent home after she was discharged from the hospital last time a few weeks ago. 2. Leukocytoclastic vasculitis. She will have skin biopsy done on outpatient basis. I discussed the case with General Surgeon and they are not able to do the biopsy in the hospital because they do not have equipment. 3. Hypothyroidism, on replacement. DISCUSSION: The patient improved with gentle hydration. Her creatinine is down to 1.87, since the time of admission, we are going to continue gentle hydration and most likely she will be discharged home in the next 24 to 48 hours and follow up with either primary care physician or ocean biologist for skin biopsy and further workup on her leukocytoclastic vasculitis. Job ID: [id number]
[2019-02-23] MEDS: Sodium Chloride 0.9% 1,000 ML IV SCH (17:22)
[2019-02-23] MEDS: Atorvastatin Calcium 10 MG TAB PO SCH (20:54)
[2019-02-24] MEDS: Levothyroxine Sodium 50 MCG TAB PO SCH (05:37)
[2019-02-24 06:09] LABS: Anion Gap 14 mmol/L (10-20); BUN (Urea Nitrogen) 34 mg/dL (9.8-20.1); Calc. Creatinine Clearance 24 mL/min (70-130); Calcium 8.9 mg/dL (7.8-10.44); Carbon Dioxide 19 mmol/L (23-31); Chloride 104 mmol/L (98-107); Estimated GFR-MDRD 29; Glucose 104 mg/dL (83-110); Potassium 4.1 mmol/L (3.5-5.1); Sodium 133 mmol/L (136-145)
[2019-02-24] MEDS: Cyanocobalamin (Vitamin B-12) 1,000 MCG TAB PO SCH (08:36)
[2019-02-24] MEDS: Ferrous Sulfate 325 MG TAB PO SCH (08:36)
[2019-02-24] MEDS: Fish Oil 1,000 MG CAP PO SCH (08:36)
[2019-02-24] MEDS: Famotidine 20 MG TAB PO SCH (08:36)
[2019-02-24] MEDS: Calcium Carbonate + Vit D 1 TAB PO SCH ×2 (08:36→20:49)
[2019-02-24] MEDS: Metoprolol Tartrate 25 MG TAB PO SCH (08:39)
[2019-02-24] MEDS: Aspirin 81 mg Enteric Coated Tablet PO SCH (08:39)
--- NOTE | 2019-02-24 10:25 | RAD ---
Portable chest: HISTORY: Cough shortness of breath COMPARISON: 02/21/2019 FINDINGS:Increasing opacity in both lung bases consistent with bilateral effusions, larger on the lef t. Increasing left basilar atelectasis and consolidation. IMPRESSION:Increasing opacification in the left lung base. Right effusion and mild right basilar atel ectasis again noted.
--- NOTE | 2019-02-24 12:49 | PRG ---
DATE OF SERVICE: 02/24/2019 SUBJECTIVE: The patient is seen and examined at the bedside. Her son is present in the room during my visit. She started having some cough and apparently, she had some shortness of breath on exertion while she was ambulating yesterday. OBJECTIVE: VITAL SIGNS: Blood pressure is 161/80, pulse is 86, temperature is 98.4, respiratory rate is 20, and O2 saturation is 95% on 3 L by nasal cannula. HEENT: Her head is atraumatic and normocephalic. Sclerae are nonicteric. Oral mucosa is moist. NECK: Supple. LUNGS: Breath sounds diminished at both bases. HEART: S1, S2 normal. No S3. No S4. ABDOMEN: Soft, nontender. Bowel sounds are present. No organomegaly. EXTREMITIES: 2+ peripheral edema. NEUROLOGICAL: She follows my commands. She moves her all 4 extremities. There is no any motor or sensory deficits present. Cranial nerves are intact. LABORATORY DATA: Labs showed a sodium of 133, potassium 4.1, chloride 104, CO2 of 19, BUN 34, creatinine 1.66, glucose 104, calcium 8.9. IMPRESSION: 1. Acute kidney injury, which looked like prerenal, but with IV fluids. Kidney function improved with creatinine down to 1.66, but the patient is becoming more short of breath and she is accumulating bilateral pleural effusions, which most likely represents some congestive heart failure. 2. Leukocytoclastic vasculitis. The plan was to do the biopsy on outpatient basis after rehydration and improvement of her kidney problem. 3. Hypothyroidism, on replacement. 4. Shortness of breath with accumulation of bilateral pleural effusion, which looks like congestive heart failure to me. DISCUSSION: We will obtain BNP. We will get echocardiogram. We will discuss with the patient's family her son should be present in the room during my revisit. We will see whether she needs to have any Lasix at this point, but we will put her back on her O2 since she is hypoxic without O2. Job ID: [id number]
[2019-02-24 16:08] LABS: ALT (SGPT) 12 U/L (8-55); AST (SGOT) 15 U/L (5-34); Albumin 3.1 g/dL (3.4-4.8); Alkaline Phosphatase 63 U/L (40-110); Anion Gap 13 mmol/L (10-20); BUN (Urea Nitrogen) 32 mg/dL (9.8-20.1); Bilirubin, Total 0.5 mg/dL (0.2-1.2); Calc. Creatinine Clearance 24 mL/min (70-130); Calcium 9.1 mg/dL (7.8-10.44); Carbon Dioxide 21 mmol/L (23-31); Chloride 104 mmol/L (98-107); Estimated GFR-MDRD 30; Globulin 2.6 g/dL (2.4-3.5); Glucose 107 mg/dL (83-110); Potassium 4.2 mmol/L (3.5-5.1); Protein, Total 5.7 g/dL (6.0-8.3); Sodium 134 mmol/L (136-145)
[2019-02-24] MEDS ORDERED: Acetaminophen/Codeine 30-300mg Tablet PO PRN (16:40)
[2019-02-24 17:06] LABS: Creatinine, Urine 72.76 mg/dL (47-110)
--- NOTE | 2019-02-24 19:26 | CON ---
DATE OF CONSULTATION: 02/24/2019 REQUESTING PHYSICIAN: Dr. Silvestre. REASON FOR CONSULTATION: Acute kidney injury. HISTORY OF PRESENT ILLNESS: An 88-year-old female with known history of coronary artery disease status post CABG, recurrent hospitalizations recently due to abdominal symptoms associated with FELICITAS and most recently between February 16 through February 18 due to bilateral lower extremity rash, concerning for leukocytoclastic vasculitis, who now was admitted due to decreased urine output as well as ill feeling, abdominal pain, and generalized weakness. The patient was recently discharged on diuretics and reported decreased urine output despite compliance with the diuretics. She also reported bilateral leg swelling has worsened despite being on diuretics. Since the admission, the patient has been on IV fluids with improvement in creatinine from 2.07 on admission to 1.66 today. However, the patient had developed shortness of breath concerning for fluid overload, hence IV fluid was discontinued. There is no associated fever, chills, nausea, vomiting , or frequent loose stools, though the patient reported soft stools in the last couple of days. The patient had CT scan of the abdomen and pelvis on presentation on February 22, which showed small bilateral pleural effusion with bibasilar atelectasis, but no acute intraabdominal process. Of note, during previous hospitalization, the patient had what looked like terminal ileitis and subsequently also had proctitis before current episode of bilateral leg rash. Leg swelling has not changed significantly since admission, but the rash is noted to have improved. Urine output has improved since admission with commencement of IV fluid therapy. PAST MEDICAL HISTORY: 1. Coronary artery disease, status post CABG. 2. Hypertension. 3. Hyperlipidemia. 4. Hypothyroidism. 5. Suspected leukocytoclastic vasculitis. PAST SURGICAL HISTORY: 1. Coronary artery bypass graft. 2. Hysterectomy. 3. Tonsillectomy. 4. Appendectomy. FAMILY HISTORY: Reviewed and noncontributory. SOCIAL HISTORY: The patient lives alone, but son lives close by. Denied alcohol, smoking, or recreational drug use. ALLERGIES: NO KNOWN DRUG ALLERGY REPORTED. HOME MEDICATIONS: 1. Amlodipine 5 mg p.o. daily. 2. Aspirin 81 mg p.o. daily. 3. Lipitor 10 mg p.o. daily at bedtime. 4. Calcium carbonate with vitamin D3 one tablet p.o. b.i.d. 5. Cholecalciferol 2000 units p.o. daily at bedtime. 6. Vitamin B12, 1000 mcg p.o. daily. 7. Ferrous sulfate 45 mg p.o. daily. 8. Fish oil 400 mg p.o. daily. 9. Levothyroxine 50 mcg p.o. daily. 10. Lisinopril 10 mg p.o. daily. 11. Magnesium glycinate 400 mg p.o. daily at bedtime. 12. Meclizine 25 mg p.o. daily. 13. Melatonin 5 mg p.o. daily at bedtime. 14. Metoprolol tartrate 25 mg p.o. daily. 15. Multivitamin one tablet p.o. daily at bedtime. 16. Furosemide 20 mg p.o. daily. CURRENT HOSPITAL MEDICATIONS: 1. Aspirin 81 mg p.o. daily. 2. Lipitor 10 mg p.o. daily. 3. Calcium carbonate plus vitamin D one tablet p.o. b.i.d. 4. Cholecalciferol 2000 units p.o. daily at bedtime. 5. Cyanocobalamin 1000 mcg p.o. daily. 6. Pepcid 20 mg p.o. daily. 7. Ferrous sulfate 325 mg p.o. daily. 8. Fish oil 1000 mg p.o. daily. 9. Levothyroxine 50 mcg p.o. daily. 10. Magnesium glycinate 400 mg p.o. daily at bedtime. 11. Metoprolol tartrate 25 mg p.o. daily. 12. Multivitamin one tablet p.o. daily. 13. Acetaminophen 1000 mg p.o. q.6 p.r.n. for pain. 14. Zofran 4 mg q.6 p.r.n. for nausea and vomiting. REVIEW OF SYSTEMS: A 12-point review of system performed was negative other than pertinent positives and negatives included in the history of present illness. PHYSICAL EXAMINATION: VITAL SIGNS: Temperature 97.6, pulse 80, respiratory rate 20, SpO2 is 95 on 3 L nasal cannula, blood pressure is 153/81. GENERAL: Comfortable, elderly female, in no obvious distress. Afebrile, anicteric, acyanotic. HEENT: Normocephalic and atraumatic. Oral mucosa is moist. NECK: Supple, nontender with good range of motion. No obvious JVD or masses appreciated. CARDIOVASCULAR: Regular rhythm and rate with normal heart sounds 1 and 2. Soft systolic murmur noted. RESPIRATORY: Fair air entry bilaterally with some transmitted breath sounds. Questionable crackles are heard at both bases. There is however no use of accessory muscles or respiratory distress. GI: Full, soft, nondistended, and nontender. EXTREMITIES: Moderate bilateral leg edema with no obvious erythema appreciated. SKIN: Scattered erythematous macules of various sizes noted on both lower extremities from knee downwards. WEATHER REPORTER: Conscious and alert and oriented x3 with appropriate mental status. Cranial nerves 2 through 12 are grossly intact. DIAGNOSTIC DATA: CBC on February 22 showed WBC count of 7.4, hemoglobin of 9.6, MCV of 91.8, platelets of 145. BMP performed earlier today showed sodium 133, potassium 4.1, chloride 104, CO2 is 19, BUN 34, creatinine 1.66, glucose 104, calcium 8.9. Of note, on presentation on February 21, CMP showed sodium 136, potassium 4.3, chloride 102, CO2 of 26, BUN 30, creatinine 2.07, glucose 134, calcium 9.3, total bilirubin 0.4, AST 21, ALT 18, alkaline phosphatase 70, total protein 6.0, albumin 3.6, globulin 2.4. Review of medical records showed that the patient had normal creatinine of 0.89 on February 17, 2019. Also on presentation, sodium was 136, but currently it is 133. On presentation, troponin was 0.013, BNP 34.2. CRP on presentation was 7.09. Urinalysis on February 22 showed light yellow urine with pH of 5.5; specific gravity of 1.013; protein 200 mg/dL; normal glucose; negative ketone, nitrite, bilirubin, and leukocyte esterase. Microscopy showed 21 to 50 rbc's and 4 to 6 wbc's with no bacteria. CT scan of the abdomen and pelvis performed on February 21 without contrast showed bilateral pleural effusion with bibasilar atelectasis as well as large fixed diaphragmatic hernia and no acute intraabdominal process. ASSESSMENT: 1. Acute kidney injury: Etiology is unclear, but differentials include prerenal as well as acute glomerulonephritis given association with proteinuria and hematuria and recent finding of bilateral skin rash. Creatinine has improved from 2.07 to 1.66 with IV fluids. However, leg swelling persisted and the patient developed shortness of breath, suggestive of cardiac decompensation and fluid overload. ESR performed on February 16 was 61, while CRP performed on February 16 was 7.25. 2. Suspected acute GN: primary or secondary. 3. Proteinuria of unclear etiology. 4. Hematuria. 5. Suspected leucocytoclastic vasculitis. ? autoimmune disease. 6. Hyponatremia 7. worsening Metabolic acidosis 8. Bilateral leg swelling and fluid overload PLAN: 1. We will get urine electrolytes as well as urine protein quantification, urine osmolality and plasma osmolality. 2. We will also get repeat CRP, ESR, C3 and C4. RUSSELL and ANCA serologies are pending 3. We will also get repeat CMP to assess albumin level, given bilateral leg edema. 4. Agree with echocardiogram to assess cardiac function. 5. Renal ultrasound is contemplated. Many thanks for involving us in the care of this patient. Further recommendation to follow on review on ordered tests. We will follow along with you. Job ID: [id number] MTDD
[2019-02-24] MEDS: Atorvastatin Calcium 10 MG TAB PO SCH (20:49)
[2019-02-25] MEDS: Levothyroxine Sodium 50 MCG TAB PO SCH (06:06)
[2019-02-25 06:27] LABS: Band 2 % (5-11); Eosinophils 2 % (0-10); Hemoglobin 10.5 g/dL (12.0-16.0); Lymphocytes 6 % (21-51); MDiff Complete? YES; Mean Corpuscular HGB CONC 32.7 g/dL (32.0-36.0); Mean Corpuscular Hemoglobin 29.3 pg (27.0-31.0); Mean Corpuscular Volume 89.5 fL (78.0-98.0); Mean Platelet Volume 7.5 fL (7.4-10.4); Monocytes 10 % (0-10); Myelocyte 1 % (0-0); Neutrophil 79 % (42-75); Platelet Count 186 thou/uL (130-400); Platelet Morphology Comment Appears Adequate; RBC Distribution Width 12.5 % (11.5-14.5)
[2019-02-25 06:31] LABS: Anion Gap 13 mmol/L (10-20); BUN (Urea Nitrogen) 29 mg/dL (9.8-20.1); BUN/Creatinine Ratio 20.28; Calc. Creatinine Clearance 27 mL/min (70-130); Calcium 9.9 mg/dL (7.8-10.44); Carbon Dioxide 20 mmol/L (23-31); Chloride 106 mmol/L (98-107); Estimated GFR-MDRD 35; Glucose 92 mg/dL (83-110); Phosphorus 4.2 mg/dL (2.3-4.7); Potassium 4.1 mmol/L (3.5-5.1); Sodium 135 mmol/L (136-145)
[2019-02-25 06:34] LABS: Complement-C4 3.9 mg/dL (Not Available)
[2019-02-25] MEDS: Aspirin 81 mg Enteric Coated Tablet PO SCH (10:07)
[2019-02-25] MEDS: Amlodipine 5 MG TAB PO SCH (10:07)
[2019-02-25] MEDS: Metoprolol Tartrate 25 MG TAB PO SCH (10:08)
[2019-02-25] MEDS: Albumin 25% 25 GM/100 ML BOT IVPB SCH ×3 (10:08→21:19)
[2019-02-25] MEDS: Calcium Carbonate + Vit D 1 TAB PO SCH ×2 (10:08→21:46)
[2019-02-25] MEDS: Famotidine 20 MG TAB PO SCH (10:09)
[2019-02-25] MEDS: Multivit, Therapeutic 1 TAB PO SCH (10:09)
[2019-02-25] MEDS: Ferrous Sulfate 325 MG TAB PO SCH (10:09)
[2019-02-25] MEDS: Fish Oil 1,000 MG CAP PO SCH (10:09)
[2019-02-25] MEDS: Cyanocobalamin (Vitamin B-12) 1,000 MCG TAB PO SCH (10:09)
--- NOTE | 2019-02-25 19:16 | PDOC.HOSPP ---
- Subjective Encounter Date: 02/25/19 Encounter Time: 10:00 Subjective: Pt seen for followup re: acute on chronic stage 3 renal failure. Feels better, no complaints today. - Objective Vital Signs & Weight: Vital Signs (12 hours) Temp Pulse Resp BP BP Pulse Ox 02/25/19 16:36 97.9 F 81 20 134/75 91 L 02/25/19 11:58 97.5 F L 75 18 124/74 95 02/25/19 10:07 90 143/88 H 02/25/19 08:00 94 L 02/25/19 07:44 97.7 F 90 20 138/75 94 L Weight Weight 141 lb 7 oz Result Diagrams: 02/25/19 05:24 02/25/19 05:23 Additional Labs: Labs and MARs reviewed by mn Hospitalist ROS - Review of Systems Respiratory: denies: cough, shortness of breath, SOB with excertion, pleuritic pain, wheezing Cardiovascular: denies: chest pain, palpitations, orthopnea, paroxysmal noc. dyspnea, edema, light headedness - Medication Medications: Active Medications Generic Name Dose Route Start Last Admin Trade Name Freq PRN Reason Stop Dose Admin Acetaminophen 1,000 mg 02/22/19 02:05 02/23/19 03:07 Tylenol PO 1,000 mg Q6H PRN Administration Mild Pain (1-3) Albumin Human 25 gm 02/25/19 08:15 02/25/19 13:22 Albumin 25% IVPB 02/25/19 20:16 25 gm Q6H LEEANN Administration Amlodipine Besylate 5 mg 02/25/19 09:00 02/25/19 10:07 Norvasc PO 5 mg DAILY LEEANN Administration Aspirin 81 mg 02/22/19 09:00 02/25/19 10:07 Ecotrin PO 81 mg DAILY LEEANN Administration Atorvastatin Calcium 10 mg 02/22/19 21:00 02/24/19 20:49 Lipitor PO 10 mg HS LEEANN Administration Calcium/Vitamin D 1 tab 02/22/19 09:00 02/25/19 10:08 Caltrate 600 + Vit D PO Not Given BID [facility] Cholecalciferol 2,000 units 02/22/19 21:00 02/24/19 20:48 Vitamin D3 PO 2,000 units HS LEEANN Administration Cyanocobalamin 1,000 mcg 02/22/19 09:00 02/25/19 10:09 Vitamin B-12 PO Not Given DAILY LEEANN Famotidine 20 mg 02/22/19 09:00 02/25/19 10:09 Pepcid PO Not Given QAM LEEANN Ferrous Sulfate 325 mg 02/22/19 09:00 02/25/19 10:09 Feosol PO Not Given DAILY LEEANN Fish Oil 1,000 mg 02/22/19 09:00 02/25/19 10:09 Fish Oil PO Not Given DAILY LEEANN Levothyroxine Sodium 50 mcg 02/22/19 06:00 02/25/19 06:06 Synthroid PO 50 mcg 0600 LEEANN Administration Metoprolol Tartrate 25 mg 02/22/19 09:00 02/25/19 10:08 Lopressor PO 25 mg DAILY LEEANN Administration Multivitamins 1 tab 02/22/19 09:00 02/25/19 10:09 Theragran PO Not Given DAILY LEEANN - Exam General Appearance: NAD Eye: anicteric sclera ENT: normocephalic atraumatic Neck: supple Heart: RRR Respiratory: CTAB Gastrointestinal: soft, non-tender Skin - other findings: rash improved Musculoskeletal: normal strength Psychiatric: normal affect, normal behavior Hosp A/P (1) Acute worsening of stage 3 chronic kidney disease Code(s): N18.3 - CHRONIC KIDNEY DISEASE, STAGE 3 (MODERATE) Status: Acute (2) Hypothyroidism Code(s): E03.9 - HYPOTHYROIDISM, UNSPECIFIED Status: Chronic (3) HTN (hypertension) Code(s): I10 - ESSENTIAL (PRIMARY) HYPERTENSION Status: Chronic (4) Dyslipidemia Code(s): E78.5 - HYPERLIPIDEMIA, UNSPECIFIED Status: Chronic - Plan plan discussed w/ family Creatinine improved to 1.43 today. Continue synthroid. HTN controlled. Continue statin.
--- NOTE | 2019-02-25 20:17 | PRG ---
DATE OF SERVICE: 02/25/2019 SERVICE: Nephrology. SUBJECTIVE: This is an 88-year-old female admitted due to decreased urine output as well as ill feeling and generalized weakness. Found to have acute kidney injury necessitating Nephrology consult. The patient reported general improvement and reports feeling stronger. Denied nausea, vomiting, or diarrhea. Leg swelling was marginally better with limb elevation. There is no history of fever or chest pain. Shortness of breath has improved with discontinuation of IV fluid. OBJECTIVE: VITAL SIGNS: Temperature 97.7, pulse 90, respiratory rate 20, SpO2 of 94% on 1 L nasal cannula, blood pressure is 138/75. GENERAL: Elderly female, in no obvious distress. Afebrile, anicteric, acyanotic. HEENT: Normocephalic, atraumatic. Oral mucosa is moist. NECK: Supple. Nontender with no JVD or masses. CARDIOVASCULAR: Regular rhythm and rate with normal heart sounds 1 and 2. Soft systolic murmur noted. RESPIRATORY: Fair air entry bilaterally with few bibasilar transmitted breath sounds. There is no use of accessory muscles. GASTROINTESTINAL: Full, soft, nontender, nondistended with normal bowel sounds. EXTREMITIES: Dypx-ci-lhesrmxt bilateral leg edema noted. SKIN: Few scattered erythematous macules of various sizes on both legs noted. No obvious erythema appreciated. CENTRAL NERVOUS SYSTEM: Conscious, alert, oriented x3 with appropriate mental status. Cranial nerves 2 through 12 are grossly intact. The patient moves all extremities symmetrically. DIAGNOSTIC DATA: CBC showed WBC count of 10.0, hemoglobin of 10.5, MCV of 89.5, and platelet of 186. Renal function panel showed sodium 135, potassium 4.1, chloride 106, CO2 of 20, BUN 29, creatinine 1.43, glucose 92, calcium 9.9, phosphorus 4.2, albumin 3.0. Serum osmolality is 285 while urine osmolality 309. CRP is 5.88 and ESR is 45. T3 is 96, T4 is 3.9. Urine electrolytes showed random protein of 85 mg/dL, urine creatinine of 72.7. Urine sodium of 33, and urine urea nitrogen of 441 with both fractional excretion of sodium and urea suggestive of prerenal etiology. AMA and ANCA serologies are pending at this time. ASSESSMENT: 1. Acute kidney injury: Most likely due to prerenal etiology with volume depletion related to diuretic therapy and poor oral intake. However, recent development of bilateral leg rash as well as microscopic hematuria is concerning for possible acute glomerulonephritis. However, complements are normal and renal function is improving with only volume expansion making prerenal etiology more likely. 2. Proteinuria with UPC of about 1.2 g. 3. Hematuria. 4. Possible acute glomerulonephritis. 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 6. Metabolic acidosis. 7. Hypoalbuminemia. 8. Bilateral leg swelling: Most likely due to diastolic heart failure and hypoalbuminemia. 9. Diastolic heart failure. 10. Mild mitral regurgitation. PLAN: 1. We will expand intravascular space with albumin. 2. We will monitor renal function. 3. We will elevate both lower extremities and will consider diuretics if renal function returns to normal and the patient continued to have leg edema. 4. We will restart amlodipine to get adequate blood pressure control. 5. We will await RUSSELL with reflex as well as ANCA serologies. 6. We will repeat renal function in the morning. 7. Further treatment to follow depending on hospital course. Job ID: [id number]
[2019-02-25] MEDS: Atorvastatin Calcium 10 MG TAB PO SCH (21:45)
[2019-02-26] MEDS: Acetaminophen 500 MG TAB PO PRN ×3 (01:33→21:14)
[2019-02-26] MEDS: Levothyroxine Sodium 50 MCG TAB PO SCH (04:49)
[2019-02-26 06:38] LABS: Albumin 3.9 g/dL (3.4-4.8); Anion Gap 13 mmol/L (10-20); BUN (Urea Nitrogen) 21 mg/dL (9.8-20.1); BUN/Creatinine Ratio 16.67; Calc. Creatinine Clearance 32 mL/min (70-130); Calcium 9.5 mg/dL (7.8-10.44); Carbon Dioxide 23 mmol/L (23-31); Chloride 104 mmol/L (98-107); Estimated GFR-MDRD 40; Glucose 99 mg/dL (83-110); Potassium 3.6 mmol/L (3.5-5.1); Sodium 136 mmol/L (136-145)
[2019-02-26] MEDS: Aspirin 81 mg Enteric Coated Tablet PO SCH (09:06)
[2019-02-26] MEDS: Calcium Carbonate + Vit D 1 TAB PO SCH ×2 (09:06→21:08)
[2019-02-26] MEDS: Metoprolol Tartrate 25 MG TAB PO SCH (09:06)
[2019-02-26] MEDS: Multivit, Therapeutic 1 TAB PO SCH (09:06)
[2019-02-26] MEDS: Cyanocobalamin (Vitamin B-12) 1,000 MCG TAB PO SCH (09:06)
[2019-02-26] MEDS: Amlodipine 5 MG TAB PO SCH (09:06)
[2019-02-26] MEDS: Famotidine 20 MG TAB PO SCH (09:06)
[2019-02-26] MEDS: Fish Oil 1,000 MG CAP PO SCH (09:06)
[2019-02-26] MEDS: Ferrous Sulfate 325 MG TAB PO SCH (09:07)
[2019-02-26] MEDS ORDERED: Enoxaparin Sodium 30 MG/0.3 ML SYRINGE SC SCH (09:45)
--- NOTE | 2019-02-26 10:18 | RAD ---
PA AND LATERAL CHEST: HISTORY: Shortness of breath. COMPARISON: 02/24/2019 FINDINGS: Changes of median sternotomy are again seen. The heart is enlarged. There are bilateral pleural effus ions with adjacent consolidation/atelectatic changes. No pneumothoraces are seen. POS: H
[2019-02-26] MEDS ORDERED: Furosemide 20 MG/2 ML VIAL SLOW IVP SCH (10:45)
[2019-02-26 14:09] LABS: Cytoplasmic (C-ANCA) <1:20 titer (Neg:<1:20); Myeloperoxidase AutoAbs <9.0 U/mL (0.0-9.0); Perinuclear (P-ANCA) <1:20 titer (Neg:<1:20); Proteinase-3 AutoAbs Less than 3.5 U/mL (0.0-3.5)
--- NOTE | 2019-02-26 15:46 | PRG ---
DATE OF SERVICE: 02/26/2019 SERVICE: Nephrology. SUBJECTIVE: An 88-year-old female admitted due to decreased urine output as well as generalized weakness and ill feeling. The patient was found to have FELICITAS necessitating Nephrology consult. The patient was treated with IV fluid and with improvement, but however, developed worsening shortness of breath last night. She reports feeling better this morning. Denied chest pain, fever, nausea, or vomiting. Bilateral leg swelling noted on admission has improved. OBJECTIVE: VITAL SIGNS: Temperature 97.6, pulse 64, respiratory rate 19, SpO2 of 94% on 2 L nasal cannula, and blood pressure is 137/72. GENERAL: Elderly female, in no obvious distress. Afebrile. Anicteric. HEENT: Normocephalic, atraumatic. Oral mucosa is moist. CARDIOVASCULAR: Regular rhythm and rate with normal heart sounds. Soft systolic murmur noted. RESPIRATORY: Fair air entry bilateral, diminished at both bases. No use of accessory muscles or increased work of breathing. GASTROINTESTINAL: Full, soft, nontender, and nondistended with normal bowel sounds. EXTREMITIES: Txzt-up-lqbcqijw bilateral leg edema noted. CENTRAL NERVOUS SYSTEM: Conscious and alert and oriented x3 with appropriate mental status. Cranial nerves II through XII are grossly intact. DIAGNOSTIC DATA: Renal function panel showed sodium 136, potassium 3.3, chloride 104, CO2 of 23, BUN is 21, creatinine 1.36, glucose 99, calcium 9.5, phosphorus 3.0, and albumin 3.9. ANCA serologies obtained on February 21 was unremarkable. RUSSELL is still pending. ASSESSMENT: 1. Acute kidney injury: Due to prerenal etiology with volume depletion from diuretic therapy and poor oral intake. Creatinine continues to trend downwards. The patient, however, have proteinuria and hematuria concerning for glomerulonephritis. 2. Proteinuria with UPC of above 1.2 g of creatinine. 3. Hematuria. 4. Metabolic acidosis: Improved. 5. Hypoalbuminemia. 6. Bilateral leg swelling. 7. Acute on chronic diastolic heart failure due to fluid overload. 8. Mitral regurgitation. PLAN: 1. We will start Lasix IV for 20 mg p.o. b.i.d. given acute respiratory distress due to acute on chronic diastolic heart failure. 2. We will monitor intake and output as well as renal function. 3. We will continue antihypertensives. 4. We will avoid renal nephrotoxic agents. 5. We will await RUSSELL. 6. Further treatment as per primary attending. 7. Increase activity recommended. Job ID: [id number]
--- NOTE | 2019-02-26 16:05 | PQF ---
CLINICAL DOCUMENTATION IMPROVEMENT CLARIFICATION FORM: ICD-10 Updated PLEASE DO AN ADDENDUM TO THE PROGRESS NOTE WITH ANY DOCUMENTATION UPDATES OR ADDITIONS AND CARRY THROUGH TO DC SUMMARY. THANK YOU. DATE: 02/26/19 ATTN: DR. FERNANDEZ Please exercise your independent, professional judgment in responding to the clarification form. Clinical indicators are provided on the bottom of this form for your review Please check appropriate box(s): HEART FAILURE: A. ACUITY [ ] Acute [ ] Acute on Chronic [ ] Chronic B. TYPE [ ] Systolic / HFrEF [ ] Diastolic / HFpEF [ ] Combined Systolic / Diastolic [ ] Hypertensive Heart and Kidney disease [ ] Hypertensive Heart Disease [ ] Hypertensive Kidney Disease [ ] Other diagnosis [ ] Unable to determine In addition, please specify: Present on Admission (POA): [ ] Yes [ ] No [ ] Unable to determine For continuity of documentation, please document condition throughout progress notes and discharge summary. Thank You. CLINICAL INDICATORS - SIGNS / SYMPTOMS / LABS / RESULTS AND LOCATION IN EMR PROGRESS NOTE 02/25: "DIASTOLIC HEART FAILURE" BNP 02/21: 344.2 BNP 02/24: 528.5 RISKS: FELICITAS (PROGRESS NOTE 02/25) CAD (H&P 02/22) TREATMENT: ECHOCARDIOGRAM 02/24 IV LASIX (ORDERED 02/26) (This form is maintained as a part of the permanent medical record) 2014 [employer]. All Rights Reserved IRAIDA [email or web address] Office: [phone] [email or web address]
[2019-02-26] MEDS: Furosemide 20 MG/2 ML VIAL SLOW IVP SCH (16:30)
[2019-02-26] MEDS: MAGNESIUM GLYCINATE 400 MG PO SCH ×2 (19:34→19:35)
--- NOTE | 2019-02-26 19:58 | PDOC.HOSPP ---
- Subjective Encounter Date: 02/26/19 Encounter Time: 10:20 Subjective: Pt seen for followup re: acute renal failure. Feels better now but had orthopnea last night. - Objective Vital Signs & Weight: Vital Signs (12 hours) Temp Pulse Resp BP Pulse Ox 02/26/19 15:35 98 F 76 18 146/69 H 91 L 02/26/19 11:48 97.6 F 64 19 137/72 94 L 02/26/19 09:06 61 02/26/19 08:00 94 L Weight Weight 142 lb 3 oz I&O: 02/25/19 02/26/19 02/27/19 06:59 06:59 06:59 Intake Total 780 Balance 780 Result Diagrams: 02/25/19 05:24 02/26/19 05:54 Additional Labs: Labs and MARs reviewed by wa Hospitalist ROS - Review of Systems Respiratory: reports: SOB with excertion Cardiovascular: reports: orthopnea Gastrointestinal: denies: nausea, vomiting, abdominal pain, diarrhea, constipation, melena, hematochezia Genitourinary: denies: dysuria, frequency, incontinence, hematuria, retention - Medication Medications: Active Medications Generic Name Dose Route Start Last Admin Trade Name Freq PRN Reason Stop Dose Admin Acetaminophen 1,000 mg 02/22/19 02:05 02/26/19 04:49 Tylenol PO 500 mg Q6H PRN Administration Mild Pain (1-3) Amlodipine Besylate 5 mg 02/25/19 09:00 02/26/19 09:06 Norvasc PO 5 mg DAILY LEEANN Administration Aspirin 81 mg 02/22/19 09:00 02/26/19 09:06 Ecotrin PO 81 mg DAILY LEEANN Administration Atorvastatin Calcium 10 mg 02/22/19 21:00 02/25/19 21:45 Lipitor PO 10 mg HS LEEANN Administration Calcium/Vitamin D 1 tab 02/22/19 09:00 02/26/19 09:06 Caltrate 600 + Vit D PO 1 tab BID LEEANN Administration Cholecalciferol 2,000 units 02/22/19 21:00 02/25/19 21:46 Vitamin D3 PO Not Given HS LEEANN Cyanocobalamin 1,000 mcg 02/22/19 09:00 02/26/19 09:06 Vitamin B-12 PO 1,000 mcg DAILY LEEANN Administration Famotidine 20 mg 02/22/19 09:00 02/26/19 09:06 Pepcid PO 20 mg QAM LEEANN Administration Ferrous Sulfate 325 mg 02/22/19 09:00 02/26/19 09:07 Feosol PO 325 mg DAILY LEEANN Administration Fish Oil 1,000 mg 02/22/19 09:00 02/26/19 09:06 Fish Oil PO 1,000 mg DAILY LEEANN Administration Furosemide 20 mg 02/26/19 17:00 02/26/19 16:30 Lasix SLOW IVP 20 mg 0600,1700 LEEANN Administration Levothyroxine Sodium 50 mcg 02/22/19 06:00 02/26/19 04:49 Synthroid PO 50 mcg 0600 LEEANN Administration Metoprolol Tartrate 25 mg 02/22/19 09:00 02/26/19 09:06 Lopressor PO 25 mg DAILY LEEANN Administration Multivitamins 1 tab 02/22/19 09:00 02/26/19 09:06 Theragran PO 1 tab DAILY LEEANN Administration - Exam General Appearance: NAD Eye: anicteric sclera ENT: moist mucosa Neck: symmetric, JVD Heart - other findings: Fernando crackles Respiratory: CTAB Gastrointestinal: soft, non-tender Extremities: no clubbing, 1+ LE edema Psychiatric: normal affect, normal behavior Hosp A/P (1) Acute on chronic diastolic CHF (congestive heart failure), NYHA class 3 Code(s): I50.33 - ACUTE ON CHRONIC DIASTOLIC (CONGESTIVE) HEART FAILURE Status : Acute Plan: Present on admission (2) Acute worsening of stage 3 chronic kidney disease Code(s): N18.3 - CHRONIC KIDNEY DISEASE, STAGE 3 (MODERATE) Status: Acute (3) Hypothyroidism Code(s): E03.9 - HYPOTHYROIDISM, UNSPECIFIED Status: Chronic (4) HTN (hypertension) Code(s): I10 - ESSENTIAL (PRIMARY) HYPERTENSION Status: Chronic (5) Dyslipidemia Code(s): E78.5 - HYPERLIPIDEMIA, UNSPECIFIED Status: Chronic - Plan plan discussed w/ family, out of bed/ambulate Start diuretics for diastolic CHF edxacerbation. Creatinine improved to 1.26 today. Continue synthroid. HTN controlled. Will monitor vital signs and titrate antihypertensives as needed. Will continue statin.
[2019-02-26] MEDS: Atorvastatin Calcium 10 MG TAB PO SCH (21:08)
[2019-02-27] MEDS ORDERED: Furosemide 20 MG/2 ML VIAL ONE (05:14)
[2019-02-27] MEDS ORDERED: Levothyroxine Sodium 50 MCG TAB ONE (05:14)
[2019-02-27] MEDS ORDERED: Calcium Carbonate + Vit D 1 TAB ONE (07:26)
[2019-02-27] MEDS ORDERED: Aspirin 81 mg Enteric Coated Tablet ONE (07:27)
[2019-02-27] MEDS ORDERED: Fish Oil 1,000 MG CAP ONE (07:28)
[2019-02-27] MEDS ORDERED: Ferrous Sulfate 325 MG TAB ONE (07:28)
[2019-02-27] MEDS ORDERED: Enoxaparin Sodium 30 MG/0.3 ML SYRINGE ONE (07:29)
[2019-02-27] MEDS ORDERED: Metoprolol Tartrate 25 MG TAB ONE (07:29)
[2019-02-27] MEDS ORDERED: Amlodipine 5 MG TAB ONE (07:30)
[2019-02-27] MEDS ORDERED: Famotidine 20 MG TAB ONE (07:31)
[2019-02-27] MEDS ORDERED: Multivitamin W/ Minerals 1 TAB ONE (07:31)
[2019-02-27] MEDS ORDERED: Cyanocobalamin 1000 MCG/ML VIAL ONE (07:32)
[2019-02-27] MEDS: Levothyroxine Sodium 50 MCG TAB PO SCH (12:23)
[2019-02-27] MEDS: Furosemide 20 MG/2 ML VIAL SLOW IVP SCH (12:23)
[2019-02-27] MEDS: Amlodipine 5 MG TAB PO SCH (12:26)
[2019-02-27] MEDS: Aspirin 81 mg Enteric Coated Tablet PO SCH (12:30)
[2019-02-27] MEDS: Calcium Carbonate + Vit D 1 TAB PO SCH ×2 (12:31→20:29)
[2019-02-27] MEDS: Cyanocobalamin (Vitamin B-12) 1,000 MCG TAB PO SCH (12:31)
[2019-02-27] MEDS: Enoxaparin Sodium 30 MG/0.3 ML SYRINGE SC SCH (12:32)
[2019-02-27] MEDS: Famotidine 20 MG TAB PO SCH (12:32)
[2019-02-27] MEDS: Ferrous Sulfate 325 MG TAB PO SCH (12:32)
[2019-02-27] MEDS: Fish Oil 1,000 MG CAP PO SCH (12:33)
[2019-02-27] MEDS: Metoprolol Tartrate 25 MG TAB PO SCH (12:33)
[2019-02-27] MEDS: Multivit, Therapeutic 1 TAB PO SCH (12:33)
[2019-02-27 16:48] LABS: Albumin 4.2 g/dL (3.4-4.8); Anion Gap 13 mmol/L (10-20); BUN (Urea Nitrogen) 17 mg/dL (9.8-20.1); BUN/Creatinine Ratio 12.98; Calc. Creatinine Clearance 31 mL/min (70-130); Carbon Dioxide 29 mmol/L (23-31); Chloride 101 mmol/L (98-107); Estimated GFR-MDRD 38; Glucose 87 mg/dL (83-110); Phosphorus 3.2 mg/dL (2.3-4.7); Potassium 3.7 mmol/L (3.5-5.1); Sodium 139 mmol/L (136-145)
--- NOTE | 2019-02-27 18:19 | PRG ---
DATE OF SERVICE: 02/27/2019 SERVICE: Nephrology. SUBJECTIVE: An 88-year-old female with suspected leukoclastic vasculitis, admitted due to decreased urine output and generalized weakness. Nephrology is following patient for acute kidney injury. The patient reports feeling better. Denied nausea or vomiting. Urine output has improved. OBJECTIVE: VITAL SIGNS: Temperature 97.8, pulse 90, respiratory rate 17, SpO2 of 91, blood pressure 144/70. GENERAL: Elderly female, in no distress. Afebrile. Anicteric. Acyanotic. HEENT: Normocephalic, atraumatic. Oral mucosa is moist. CARDIOVASCULAR: Regular rhythm and rate. Normal heart sounds 1 and 2. Systolic murmur noted. RESPIRATORY: Fair air entry bilaterally with few bibasilar transmitted breath sounds. No respiratory distress or use of accessory muscles noted. GI: Full, soft, nontender, nondistended with normal bowel sounds. EXTREMITIES: Mild bilateral leg edema noted. RN COMMUNITY: Conscious, alert, oriented x3 with appropriate mental status. Cranial nerves 2 through 12 are grossly intact. The patient moves all extremities. DIAGNOSTIC DATA: Renal function panel showed sodium 139, potassium 3.7, chloride 101, CO2 of 29, BUN 17, creatinine 1.31, glucose 87, calcium 10.0, phosphorus 3.2, albumin 4.2. ASSESSMENT: 1. Acute kidney injury: Due to prerenal etiology related to volume depletion and from poor oral intake and use of diuretics. Creatinine is down to 1.2 with IV fluid therapy. Acute increase to 1.3 is due to diuretic therapy. The patient has received diuretics due to acute diastolic heart failure from fluid overload. 2. Proteinuria with UPC of 1.2 g of creatinine of unclear etiology. 3. Possible glomerulonephritis given hematuria and proteinuria. Vascular ANCA serology is unremarkable, RUSSELL is pending at this time. 4. Bilateral leg swelling: Due to hypoalbuminemia and diastolic heart failure. Improved with diuretics. 5. Metabolic acidosis: Improved. 6. Mitral regurgitation. 7. Acute on chronic diastolic heart failure. PLAN: 1. We will discontinue diuretic therapy at this time as the patient is close to euvolemia. Shortness of breath also has improved. 2. We will monitor renal function as well as intake and output. 3. Increase activity. 4. Avoid nephrotoxic agents. 5. Await RUSSELL. Job ID: [id number]
--- NOTE | 2019-02-27 18:34 | PDOC.HOSPP ---
- Subjective Encounter Date: 02/27/19 Encounter Time: 10:20 Subjective: Pt seen for followup re: FELICITAS. Slept well, no complaints. - Objective Vital Signs & Weight: Vital Signs (12 hours) Temp Pulse Resp BP Pulse Ox 02/27/19 15:42 97.8 F 90 17 144/70 H 91 L 02/27/19 12:26 87 02/27/19 12:25 87 Weight Weight 142 lb 3 oz I&O: 02/26/19 02/27/19 02/28/19 06:59 06:59 06:59 Intake Total 780 720 Balance 780 720 Result Diagrams: 02/25/19 05:24 02/27/19 07:35 Additional Labs: Labs and MARs reviewed by il Hospitalist ROS - Review of Systems Cardiovascular: denies: chest pain, palpitations, orthopnea, paroxysmal noc. dyspnea, edema, light headedness Gastrointestinal: denies: nausea, abdominal pain, diarrhea, constipation, melena - Medication Medications: Active Medications Generic Name Dose Route Start Last Admin Trade Name Freq PRN Reason Stop Dose Admin Acetaminophen 1,000 mg 02/22/19 02:05 02/26/19 21:14 Tylenol PO 1,000 mg Q6H PRN Administration Mild Pain (1-3) Amlodipine Besylate 5 mg 02/25/19 09:00 02/27/19 12:26 Norvasc PO Not Given DAILY [facility] Aspirin 81 mg 02/22/19 09:00 02/27/19 12:30 Ecotrin PO Not Given DAILY [facility] Atorvastatin Calcium 10 mg 02/22/19 21:00 02/26/19 21:08 Lipitor PO 10 mg HS [facility] Administration Calcium/Vitamin D 1 tab 02/22/19 09:00 02/27/19 12:31 Caltrate 600 + Vit D PO Not Given BID [facility] Cholecalciferol 2,000 units 02/22/19 21:00 02/26/19 21:08 Vitamin D3 PO Not Given HS [facility] Cyanocobalamin 1,000 mcg 02/22/19 09:00 02/27/19 12:31 Vitamin B-12 PO Not Given DAILY [facility] Enoxaparin Sodium 30 mg 02/27/19 09:00 02/27/19 12:32 Lovenox SC Not Given 0900 [facility] Famotidine 20 mg 02/22/19 09:00 02/27/19 12:32 Pepcid PO Not Given QAM LEEANN Ferrous Sulfate 325 mg 02/22/19 09:00 02/27/19 12:32 Feosol PO Not Given DAILY LEEANN Fish Oil 1,000 mg 02/22/19 09:00 02/27/19 12:33 Fish Oil PO Not Given DAILY LEEANN Levothyroxine Sodium 50 mcg 02/22/19 06:00 02/27/19 12:23 Synthroid PO Not Given 0600 LEEANN Metoprolol Tartrate 25 mg 02/22/19 09:00 02/27/19 12:33 Lopressor PO Not Given DAILY LEEANN Multivitamins 1 tab 02/22/19 09:00 02/27/19 12:33 Theragran PO Not Given DAILY LEEANN - Exam General Appearance: NAD Eye: anicteric sclera ENT: moist mucosa Neck: supple Heart: RRR Respiratory: CTAB, no ronchi Gastrointestinal: soft, non-tender Extremities: no clubbing Psychiatric: normal affect, normal behavior Hosp A/P (1) Acute worsening of stage 3 chronic kidney disease Code(s): N18.3 - CHRONIC KIDNEY DISEASE, STAGE 3 (MODERATE) Status: Acute (2) Acute on chronic diastolic CHF (congestive heart failure), NYHA class 3 Code(s): I50.33 - ACUTE ON CHRONIC DIASTOLIC (CONGESTIVE) HEART FAILURE Status : Acute (3) Hypothyroidism Code(s): E03.9 - HYPOTHYROIDISM, UNSPECIFIED Status: Chronic (4) HTN (hypertension) Code(s): I10 - ESSENTIAL (PRIMARY) HYPERTENSION Status: Chronic (5) Dyslipidemia Code(s): E78.5 - HYPERLIPIDEMIA, UNSPECIFIED Status: Chronic - Plan plan discussed w/ family, out of bed/ambulate Continue diuretics. Follow creatinine. Continue synthroid. HTN controlled. Continue statin.
[2019-02-27] MEDS: Atorvastatin Calcium 10 MG TAB PO SCH (20:29)
[2019-02-28] MEDS: Levothyroxine Sodium 50 MCG TAB PO SCH (06:14)
[2019-02-28 06:15] LABS: Hemoglobin 9.4 g/dL (12.0-16.0); Mean Corpuscular HGB CONC 33.2 g/dL (32.0-36.0); Mean Corpuscular Hemoglobin 29.9 pg (27.0-31.0); Mean Platelet Volume 7.3 fL (7.4-10.4); Platelet Count 214 thou/uL (130-400); RBC Distribution Width 12.9 % (11.5-14.5); Red Blood Cell (RBC) Count 3.15 mill/uL (4.20-5.40); White Blood Cell (WBC) Count 8.1 thou/uL (4.8-10.8)
[2019-02-28 06:30] LABS: Anion Gap 13 mmol/L (10-20); BUN (Urea Nitrogen) 18 mg/dL (9.8-20.1); Calc. Creatinine Clearance 35 mL/min (70-130); Calcium 9.9 mg/dL (7.8-10.44); Carbon Dioxide 25 mmol/L (23-31); Chloride 104 mmol/L (98-107); Estimated GFR-MDRD 45; Glucose 93 mg/dL (83-110); Potassium 3.3 mmol/L (3.5-5.1); Sodium 139 mmol/L (136-145)
[2019-02-28 07:01] LABS: Band 2 % (5-11); Eosinophils 4 % (0-10); Lymphocytes 23 % (21-51); MDiff Complete? YES; Monocytes 16 % (0-10); Myelocyte 1 % (0-0); Neutrophil 53 % (42-75); Platelet Morphology Comment Appears Adequate; RBC Morphology 1
[2019-02-28] MEDS ORDERED: Potassium Chloride 20 MEQ TAB PO SCH (07:45)
[2019-02-28] MEDS: Famotidine 20 MG TAB PO SCH (08:20)
[2019-02-28] MEDS: Calcium Carbonate + Vit D 1 TAB PO SCH ×2 (08:21→20:01)
[2019-02-28] MEDS: Multivit, Therapeutic 1 TAB PO SCH (08:21)
[2019-02-28] MEDS: Aspirin 81 mg Enteric Coated Tablet PO SCH (08:21)
[2019-02-28] MEDS: Cyanocobalamin (Vitamin B-12) 1,000 MCG TAB PO SCH (08:21)
[2019-02-28] MEDS: Ferrous Sulfate 325 MG TAB PO SCH (08:21)
[2019-02-28] MEDS: Metoprolol Tartrate 25 MG TAB PO SCH ×2 (08:21→20:01)
[2019-02-28] MEDS: Fish Oil 1,000 MG CAP PO SCH (08:21)
[2019-02-28] MEDS: Enoxaparin Sodium 30 MG/0.3 ML SYRINGE SC SCH (08:22)
[2019-02-28] MEDS ORDERED: Magnesium Sulfate 4 GM in Sodium Chloride 0.9% 250 ML 250 ML IVPB SCH (08:45)
--- NOTE | 2019-02-28 11:36 | PRG ---
DATE OF SERVICE: 02/28/2019 SERVICE: Nephrology. SUBJECTIVE: An 88-year-old female admitted due to generalized weakness and poor oral intake who is being followed up for acute renal failure. Reports feeling better. No nausea, vomiting, or abdominal pain. Oral intake has improved. OBJECTIVE: VITAL SIGNS: Temperature 97.9, pulse 84, respiratory rate 16, SpO2 of 94 on room air, blood pressure 156/78. GENERAL: Elderly female, in no obvious distress. Afebrile. Anicteric. Acyanotic. HEENT: Normocephalic, atraumatic. Oral mucosa is dry. The patient is a mouth breather at night. NECK: Supple with no JVD. CARDIOVASCULAR: Regular rhythm and rate with normal heart sounds one and two. Systolic murmur noted. RESPIRATORY: Good air entry bilaterally with few transmitted breath sounds. No obvious crackle or rhonchi was appreciated. GI: Full, soft, nontender, nondistended with normal bowel sounds. EXTREMITIES: Trace bilateral leg edema noted. PHOTOGRAPH ENLARGER: Conscious, alert, oriented x3 with appropriate mental status. Cranial nerves 2 through 12 are grossly intact. The patient is hard of hearing. The patient is ambulant. DIAGNOSTIC DATA: CBC showed WBC count of 8.1, hemoglobin of 9.4, platelet of 214. BMP showed sodium 139, potassium 3.4, chloride 104, CO2 of 25, BUN 18, creatinine 1.15, glucose 93, calcium 9.9, magnesium is 1.4. ASSESSMENT: 1. Acute kidney injury: Due to hemodynamic factors related to volume depletion and use of tglsj-hbdvawipxes-zkkplduwlxr system wendi and diuretics. Improved with IV fluid therapy. Creatinine today is 1.15. 2. Volume overload: Due to acute diastolic heart failure and IV fluid therapy. Improved with diuretic therapy. 3. Acute respiratory failure with hypoxia due to cpmsq-ml-szdssmj diastolic heart failure. Improved with diuretics. Atelectasis also is contributing. 4. Bilateral leg edema: Multifactorial from mitral valve regurgitation, diastolic heart failure and hypoalbuminemia. Improved with albumin therapy and diuretics. Limb elevation also was helpful. 5. Hypokalemia: Related to diuretic therapy. 6. Hypomagnesemia. 7. Hypertension: The patient has been getting metoprolol tartrate 25 mg daily, whereas she was getting metoprolol succinate 25 daily. We will hold amlodipine for now since blood pressure is on the soft side earlier today while the patient is on suboptimal dose of metoprolol. PLAN: 1. We will replete serum potassium and magnesium with potassium chloride and magnesium sulfate respectively. 2. We will hold amlodipine for now. We will optimize metoprolol given history of diastolic heart failure. Lisinopril and diuretics will be off at least for now to see renal recovery. 3. We will start incentive spirometry given presumed atelectasis. 4. The patient can be discharged from Nephrology point of view with a close followup in 1 week with repeat labs. Job ID: [id number]
--- NOTE | 2019-02-28 13:54 | CON ---
DATE OF CONSULTATION: REASON FOR CONSULTATION: Edema and diastolic dysfunction. Please see full consultation full by Eben Bennett. HISTORY OF PRESENT ILLNESS: Briefly, Ms. Cordova is an 88-year-old woman, who is a patient Dr. Dustin Mesa. She has a history of CAD, status post bypass surgery in 1999. She has been seen and evaluated by Dr. Dustin Mesa on a yearly basis. She recently presented with edema. This is her third hospitalization for the above. She was sent home on Lasix and developed acute renal insufficiency. She denies chest pain, pressure, shortness of breath, or associated symptoms. Her main issue has been continued lower extremity edema. Her echo did suggest a grade 1/3 diastolic dysfunction in addition to sigmoid LV. LVEF normal. She did have minimally elevated pulmonary pressures estimated at 37 mmHg. PHYSICAL EXAMINATION: GENERAL: Patient is a pleasant female, who is in no acute distress. The patient appears their stated age. VITAL SIGNS: Blood pressure 156/78, pulse 84, temperature 97.9. NEUROLOGIC: The patient is alert and oriented x3 with no focal neurologic deficits. HEENT: Sclerae without icterus. Mouth has moist mucous membranes with normal pallor. NECK: No JVD. Carotid upstroke brisk. No bruits bilaterally. LUNGS: Clear to auscultation with unlabored respirations. BACK: No scoliosis or kyphosis. CARDIAC: Regular rate and rhythm with normal S1 and S2. No S3 or S4 noted. No significant rubs, murmurs, thrills, or gallops noted throughout the precordium. PMI is not displaced. There is no parasternal heave. ABDOMEN: Soft, nontender, nondistended. No peritoneal signs present. No hepatosplenomegaly. No abnormal striae. EXTREMITIES: 1+ pitting edema. SKIN: No gross abnormalities. PERTINENT LABORATORY DATA: Hemoglobin 9.4, hematocrit 28.3, platelet count 214. IMAGING STUDIES: EKG shows normal sinus rhythm, nonspecific ST-T wave changes. IMPRESSION: 1. Edema. 2. Diastolic dysfunction. 3. Coronary artery disease. 4. Status post bypass surgery. RECOMMENDATIONS: At this point, her diastolic dysfunction is felt to be within range for her age. She does have a history of CAD, status bypass surgery and is currently 88 years of age. It does not appear to be advanced diastolic function. She has no current symptoms suggesting shortness of breath, which would be a sign and symptom of left-sided failure. She also has minimal edema. From a CV standpoint, would recommend aggressive blood pressure management. Her renal function has corrected. She does have diastolic dysfunction, but felt to be out of proportion for her current symptoms. We would seek a noncardiac cause. There is also mention of mitral regurgitation being a culprit, although she has mild MR and not felt to be a contributing factor. Otherwise, from my standpoint, I have no further recommendations. If any other issues or change, please do not hesitate to re-consult. Job ID: [id number]
[2019-02-28 14:13] LABS: ANA Symphony (Qualitative) POSITIVE (Negative); ANA Symphony (Quantitative) 1.1 Ratio (< 0.7 Negative); CENP IgG Antibody Less than 0.4 EliAU/mL (<7 Negative); Jo-1 IgG Antibody Less than 0.3 EliAU/mL (<7 Negative); RNP70 IgG Antibody Less than 0.3 EliAU/mL (<7 Negative); SSA/Ro IgG Antibody 6.7 EliAU/mL (<7 Negative); SSB/La IgG Antibody Less than 0.3 EliAU/mL (<7 Negative); Scleroderma-70 IgG Antibody Less than 0.6 EliAU/mL (<7 Negative); Smith D IgG Antibody Less than 0.8 EliAU/mL (<7 Negative); dsDNA IgG Antibody Less than 0.5 IU/mL (<10 Negative)
--- NOTE | 2019-02-28 15:30 | PDOC.HOSPP ---
- Subjective Encounter Date: 02/28/19 Encounter Time: 09:20 Subjective: Pt seen for followup re: CHF exacerbation. Feels better, no complaints. - Objective Vital Signs & Weight: Vital Signs (12 hours) Temp Pulse Resp BP Pulse Ox 02/28/19 08:00 97.9 F 84 16 156/78 H 94 L Weight Weight 142 lb 3 oz I&O: 02/27/19 02/28/19 03/01/19 06:59 06:59 06:59 Intake Total 780 720 480 Balance 780 720 480 Result Diagrams: 02/28/19 05:42 02/28/19 05:42 Additional Labs: Labs and MARs reviewed by me Hospitalist ROS - Review of Systems Respiratory: reports: SOB with excertion Cardiovascular: denies: chest pain, palpitations, orthopnea, paroxysmal noc. dyspnea, edema, light headedness Gastrointestinal: denies: nausea, vomiting, abdominal pain, diarrhea, constipation, melena, hematochezia - Medication Medications: Active Medications Generic Name Dose Route Start Last Admin Trade Name Freq PRN Reason Stop Dose Admin Acetaminophen 1,000 mg 02/22/19 02:05 02/26/19 21:14 Tylenol PO 1,000 mg Q6H PRN Administration Mild Pain (1-3) Aspirin 81 mg 02/22/19 09:00 02/28/19 08:21 Ecotrin PO 81 mg DAILY LEEANN Administration Atorvastatin Calcium 10 mg 02/22/19 21:00 02/27/19 20:29 Lipitor PO 10 mg HS LEEANN Administration Calcium/Vitamin D 1 tab 02/22/19 09:00 02/28/19 08:21 Caltrate 600 + Vit D PO 1 tab BID LEEANN Administration Cholecalciferol 2,000 units 02/22/19 21:00 02/27/19 20:29 Vitamin D3 PO 2,000 units HS LEEANN Administration Cyanocobalamin 1,000 mcg 02/22/19 09:00 02/28/19 08:21 Vitamin B-12 PO 1,000 mcg DAILY LEEANN Administration Enoxaparin Sodium 30 mg 02/27/19 09:00 02/28/19 08:22 Lovenox SC 30 mg 0900 LEEANN Administration Famotidine 20 mg 02/22/19 09:00 02/28/19 08:20 Pepcid PO 20 mg QAM LEEANN Administration Ferrous Sulfate 325 mg 02/22/19 09:00 02/28/19 08:21 Feosol PO 325 mg DAILY LEEANN Administration Fish Oil 1,000 mg 02/22/19 09:00 02/28/19 08:21 Fish Oil PO 1,000 mg DAILY LEEANN Administration Levothyroxine Sodium 50 mcg 02/22/19 06:00 02/28/19 06:14 Synthroid PO 50 mcg 0600 LEEANN Administration Metoprolol Tartrate 25 mg 02/28/19 09:00 02/28/19 08:21 Lopressor PO 25 mg BID LEEANN Administration Multivitamins 1 tab 02/22/19 09:00 02/28/19 08:21 Theragran PO 1 tab DAILY LEEANN Administration - Exam General Appearance: awake alert Eye: anicteric sclera ENT: no oropharyngeal lesions Neck: supple Heart: RRR Respiratory: CTAB Gastrointestinal: soft, non-tender Extremities: no clubbing Psychiatric: normal affect, normal behavior Hosp A/P (1) Acute on chronic diastolic CHF (congestive heart failure), NYHA class 3 Code(s): I50.33 - ACUTE ON CHRONIC DIASTOLIC (CONGESTIVE) HEART FAILURE Status : Acute (2) Hypothyroidism Code(s): E03.9 - HYPOTHYROIDISM, UNSPECIFIED Status: Chronic (3) HTN (hypertension) Code(s): I10 - ESSENTIAL (PRIMARY) HYPERTENSION Status: Chronic (4) Dyslipidemia Code(s): E78.5 - HYPERLIPIDEMIA, UNSPECIFIED Status: Chronic (5) Acute worsening of stage 3 chronic kidney disease Code(s): N18.3 - CHRONIC KIDNEY DISEASE, STAGE 3 (MODERATE) Status: Resolved - Plan Pt still on supplemental oxygen. Continue diuretics. Consult cardiology and HF team (new diagnosis of CHF). Creatinine improved to 1.15. Continue synthroid. HTN controlled. Continue statin. Replace potassium.
[2019-02-28] MEDS: Atorvastatin Calcium 10 MG TAB PO SCH (20:01)
[2019-03-01] MEDS: Levothyroxine Sodium 50 MCG TAB PO SCH (06:10)
[2019-03-01 06:29] LABS: Anion Gap 11 mmol/L (10-20); BUN (Urea Nitrogen) 15 mg/dL (9.8-20.1); Calc. Creatinine Clearance 36 mL/min (70-130); Calcium 9.8 mg/dL (7.8-10.44); Carbon Dioxide 26 mmol/L (23-31); Chloride 105 mmol/L (98-107); Estimated GFR-MDRD 46; Glucose 96 mg/dL (83-110); Potassium 3.5 mmol/L (3.5-5.1); Sodium 138 mmol/L (136-145)
[2019-03-01 06:55] LABS: Hemoglobin 9.3 g/dL (12.0-16.0); Mean Corpuscular HGB CONC 33.5 g/dL (32.0-36.0); Mean Corpuscular Volume 89.7 fL (78.0-98.0); Mean Platelet Volume 6.9 fL (7.4-10.4); Platelet Count 198 thou/uL (130-400); Red Blood Cell (RBC) Count 3.08 mill/uL (4.20-5.40); White Blood Cell (WBC) Count 10.7 thou/uL (4.8-10.8)
[2019-03-01 06:56] LABS: Band 1 % (5-11); Eosinophils 3 % (0-10); Lymphocytes 13 % (21-51); MDiff Complete? YES; Monocytes 14 % (0-10); Neutrophil 69 % (42-75)
[2019-03-01] MEDS: Multivit, Therapeutic 1 TAB PO SCH (07:54)
[2019-03-01] MEDS: Aspirin 81 mg Enteric Coated Tablet PO SCH (07:54)
[2019-03-01] MEDS: Famotidine 20 MG TAB PO SCH (07:54)
[2019-03-01] MEDS: Fish Oil 1,000 MG CAP PO SCH (07:54)
[2019-03-01] MEDS: Metoprolol Tartrate 25 MG TAB PO SCH (07:54)
[2019-03-01] MEDS: Calcium Carbonate + Vit D 1 TAB PO SCH (07:54)
[2019-03-01] MEDS: Ferrous Sulfate 325 MG TAB PO SCH (07:54)
[2019-03-01] MEDS: Cyanocobalamin (Vitamin B-12) 1,000 MCG TAB PO SCH (07:55)
[2019-03-01] MEDS: Enoxaparin Sodium 30 MG/0.3 ML SYRINGE SC SCH (07:55)
[2019-03-01 07:59] VITALS: BP 153/75; TEMP 97.9
[2019-03-01] MEDS ORDERED: Metoprolol Tartrate 25 MG TAB PO SCH ×2 (12:15→21:00)
== END 2019-03-01 16:23 | disposition home or self-care (01) | DRG 682 ==
LOC: ERS 17:23 → T4-B 21:57 → OBSVTOIN 02-24 15:21
PROVIDERS: ADMIT Internal Medicine; ATTEND Internal Medicine
DX: N17.9 Acute kidney failure, unspecified (principal); I50.33 Acute on chronic diastolic (congestive) heart failure; J96.01 Acute respiratory failure with hypoxia; I13.0 Hypertensive heart and chronic kidney disease with heart failure and stage 1 through stage 4 chronic kidney disease, or unspecified chronic kidney disease; E87.1 Hypo-osmolality and hyponatremia; E87.2 Acidosis; J98.11 Atelectasis; N00.9 Acute nephritic syndrome with unspecified morphologic changes; E78.5 Hyperlipidemia, unspecified; E03.9 Hypothyroidism, unspecified; N18.3 Chronic kidney disease, stage 3 (moderate); L95.9 Vasculitis limited to the skin, unspecified; I34.0 Nonrheumatic mitral (valve) insufficiency; E88.09 Other disorders of plasma-protein metabolism, not elsewhere classified; I25.10 Atherosclerotic heart disease of native coronary artery without angina pectoris; Z95.1 Presence of aortocoronary bypass graft; Z90.49 Acquired absence of other specified parts of digestive tract; Z90.710 Acquired absence of both cervix and uterus; Z79.899 Other long term (current) drug therapy; Z79.890 Hormone replacement therapy
CPT/HCPCS: 36415; 36416; 71045; 71046; 74176; 80048; 80053; 80069; 81001; 82570; 83520; 83735; 83880; 83930; 83935; 84156; 84300; 84443; 84484; 84540; 85007; 85025; 85027; 85652; 86038; 86140; 86160; 86225; 86235; 86256; 87086; 93005; 93306; J1650; J1940; J3420; J3475; J7050; P9047

== ENCOUNTER 2019-08-30 20:33 | Inpatient (IN) | payer MEDICARE, OTHER ==
[2019-08-30 21:24] LABS: Hemoglobin 11.9 g/dL (12.0-16.0); Mean Corpuscular HGB CONC 33.3 g/dL (32.0-36.0); Mean Corpuscular Hemoglobin 30.4 pg (27.0-31.0); Mean Corpuscular Volume 91.2 fL (78.0-98.0); Mean Platelet Volume 8.3 fL (7.4-10.4); Platelet Count 165 thou/uL (130-400); RBC Distribution Width 12.8 % (11.5-14.5)
[2019-08-30 21:36] LABS: ALT (SGPT) 23 U/L (8-55); AST (SGOT) 28 U/L (5-34); Albumin 4.6 g/dL (3.4-4.8); Alkaline Phosphatase 69 U/L (40-110); Anion Gap 14 mmol/L (10-20); BUN (Urea Nitrogen) 28 mg/dL (9.8-20.1); Bilirubin, Total 0.3 mg/dL (0.2-1.2); Calc. Creatinine Clearance 0 mL/min (70-130); Carbon Dioxide 28 mmol/L (23-31); Chloride 100 mmol/L (98-107); Estimated GFR-MDRD 38; Glucose 101 mg/dL (83-110); Potassium 4.6 mmol/L (3.5-5.1); Protein, Total 7.6 g/dL (6.0-8.3); Sodium 137 mmol/L (136-145)
[2019-08-30 21:41] LABS: Band 3 % (5-11); Eosinophils 3 % (0-10); Lymphocytes 30 % (21-51); MDiff Complete? YES; Monocytes 17 % (0-10); Neutrophil 46 % (42-75)
--- NOTE | 2019-08-30 22:38 | CT ---
CT CERVICAL SPINE: Date: 08/30/2019 COMPARISON: None. HISTORY: Weakness, near syncope. TECHNIQUE: Axial CT imaging at 2.5 mm intervals through the cervical spine without contrast. Coronal and sagitta l reformatted imaging obtained. FINDINGS: The occipital condyles, the dens, and C1-2 articulation demonstrate no acute findings. There is mild anterolisthesis at the C5-6 level measuring 3.0 mm, and at the C7-T1 level measuring 2- 3 mm. There is a mild anterior wedge compression fracture of the T2 vertebral body, age-indeterminate, with approximately 25% loss of vertebral body height anteriorly. There is also a mild age-indeterminate s uperior end plate fracture of the T4 vertebral body. Within the cervical spine, there is multilevel b ilateral facet hypertrophic change. The C1 ring is intact. The imaged lung apices demonstrate no acute findings. No acute cervical spine fracture is evident. IMPRESSION: 1. Cervical spine degenerative change. No acute fracture of the cervical spine. 2. Age-indeterminate fractures of the T4 and T2 vertebral bodies as above. POS: [facility]
[2019-08-30 22:40] LABS: Bilirubin Negative (Negative); Blood, Urine Negative (Negative); Clarity Clear (Clear); Glucose, Urine (Dipstick) Normal (Negative); Leukocyte Negative Leu/uL (Negative); Nitrite Negative (Negative); Protein, Urine (Dipstick) Negative (Neg-Trace); Urobilinogen Normal mg/dL (Less than 2)
--- NOTE | 2019-08-30 22:40 | CT ---
HEAD CT WITHOUT CONTRAST: Date: 08/30/2019 COMPARISON: None. HISTORY: Injury. TECHNIQUE: Axial CT imaging at 5 mm intervals from vertex through skull base without contrast. FINDINGS: The imaged paranasal sinuses and mastoid air cells are well aerated. No displaced calvarial fracture. There is a focal area of scalp swelling in the posterior left parietal region. No intracranial hemorrhage, midline shift, or mass effect. A small area of parietooccipital encephalo malacia posteriorly on the right noted on axial image 13 suggesting prior insult. IMPRESSION: Scalp swelling near the vertex posteriorly/laterally on the left. No intracranial hemorrhage or displ aced calvarial fracture. POS: [facility]
--- NOTE | 2019-08-30 22:41 | RAD ---
FRONTAL AND LATERAL IMAGING OF RIGHT FOREARM: Date: 08/30/2019 COMPARISON: None. HISTORY: Trauma, pain. FINDINGS: No displaced fracture. IMPRESSION: No acute osseous abnormality. POS: [facility]
--- NOTE | 2019-08-30 22:42 | RAD ---
FRONTAL RADIOGRAPH CHEST: Date: 08/30/2019 COMPARISON: 02/26/2019. HISTORY: Pain. FINDINGS: Midline sternotomy wires and mediastinal clips are present. Heart and mediastinal contours are stable . No pneumothorax, pleural fluid, focal consolidation, or alveolar edema. Hiatal hernia overlies the right cardiophrenic angle region on the left. IMPRESSION: No acute findings. POS: [facility]
[2019-08-31] MEDS ORDERED: Lidocaine 1% w/Epinephrine 1:100K 20 ML VIAL ONE (01:05)
[2019-08-31 02:16] LABS: Troponin I Less than 0.010 ng/mL (< 0.028)
[2019-08-31 03:25] VITALS: BMI 20.5
[2019-08-31 04:54] LABS: Troponin I 0.011 ng/mL (< 0.028)
[2019-08-31] MEDS ORDERED: Ondansetron PF 4 MG/2 ML Vial IVP PRN (07:03)
[2019-08-31] MEDS ORDERED: hydrALAZINE 20 MG/ML VIAL SLOW IVP PRN (07:03)
[2019-08-31] MEDS ORDERED: Guaifenesin DM 100-10/5 ML UDCUP PO PRN (07:03)
[2019-08-31] MEDS ORDERED: Acetaminophen 325 MG TAB PO PRN (07:03)
[2019-08-31] MEDS ORDERED: Morphine 2 MG/ML SYRINGE SLOW IVP PRN (07:03)
[2019-08-31] MEDS ORDERED: HYDROcodone/Acetaminophen 5/325 mg Tablet PO PRN (07:03)
[2019-08-31] MEDS ORDERED: Promethazine HCl 12.5 MG in Sodium Chloride 0.9% 50 ML IVPB PRN (07:03)
[2019-08-31] MEDS ORDERED: cloNIDine 0.1 MG TAB PO PRN (07:03)
[2019-08-31] MEDS ORDERED: Labetalol HCl 100 MG/20 ML VIAL SLOW IVP PRN (07:03)
--- NOTE | 2019-08-31 07:09 | PDOC.HHP ---
Hospitalist HPI - History of Present Illness Fall History of Present Illness: Patient is an 88 year old female with PMH HTN, hypothyroidism, CAD, CABG, HLD who presents to ED from home for fall, did not lose consciousness but tripped and hit back of head, bleeding, and has skin tear R lower forearm. Denies chest pain, shortness of breath, palpitations, was feeling dizzy however. Not on blood thinner but takes ASA. In ED, CT head without acute IC process. Orthostatics negative. blood glucose OK. EKG without acute changes of concern. Patient to be admitted for fall workup, has a history of chronic dizziness and instability. ED imaging revealed fractures in T2, T2 and other spinal possible fractures, ED discussed with trauma and NSG PA, consults pending. Hospitalist ROS - Review of Systems Constitutional: denies: fever, chills, sweats, weakness, malaise, other Eyes: denies: pain, vision change, conjunctivae inflammation, eyelid inflammation, redness, other ENT: denies: ear pain, ear discharge, nose pain, nose discharge, nose congestion , mouth pain, mouth swelling, throat pain, throat swelling, other Respiratory: denies: cough, dry, shortness of breath, hemoptysis, SOB with excertion, pleuritic pain, sputum, wheezing, other Cardiovascular: denies: chest pain, palpitations, orthopnea, paroxysmal noc. dyspnea, edema, light headedness, other Gastrointestinal: denies: nausea, vomiting, abdominal pain, diarrhea, constipation, melena, hematochezia, other Genitourinary: denies: dysuria, frequency, incontinence, hematuria, retention, other Musculoskeletal: denies: neck pain, shoulder pain, arm pain, back pain, hand pain, leg pain, foot pain, other Skin: denies: rash, lesions, jacques, bruising, other Neurological: denies: weakness, numbness, incoordination, change in speech, confusion, seizures, other All other systems reviewed; all pertinent +/- noted in HPI/Subj - Medication Medications: levothyroxine oral TABLET : Strength - 50 mcg : ORAL Patient Dose: once a day (in the morning). lisinopril TABLET : Strength - 10 mg : ORAL Patient Dose: once a day (in the morning). aspirin oral TABLET : Strength - 81 mg : ORAL Patient Dose: once a day (in the morning). meTOPROLOL succinate TABLET, EXTENDED RELEASE 24 HR : Strength - 25 mg : ORAL Patient Dose: once a day (in the morning). atorvastatin TABLET : Strength - 10 mg : ORAL Patient Dose: once a day (in the evening). Norvasc TABLET : Strength - 5 mg : ORAL Patient Dose: once a day (in the evening). Hospitalist History - Past Medical History Other Medical History: coronary artery disease. HYPOTHYROIDISM, HTN. - Past Surgical History Other Surgical History: Surgical history of appendectomy, CABG, three vessels, Date of surgery 2000, hysterectomy, Date of surgery 1979, tonsillectomy. - Family History Family History: reports: no pertinent history - Social History Smoking Status: Never smoker Alcohol: reports: None Drugs: reports: none - Exam General Appearance: NAD, awake alert Eye: PERRL, anicteric sclera ENT: normocephalic atraumatic, no oropharyngeal lesions, moist mucosa Neck: supple, symmetric, no JVD, no thyromegaly, no lymphadenopathy, no carotid bruit Heart: RRR, no murmur, no gallops, no rubs, normal peripheral pulses Respiratory: CTAB, no wheezes, no rales, no ronchi, normal chest expansion, no tachypnea, normal percussion Gastrointestinal: soft, non-tender, non-distended, normal bowel sounds, no palpable masses, no hepatomegaly, no splenomegaly, no bruit Extremities: no cyanosis, no clubbing, no edema Skin: normal turgor, no lesions, no rashes Neurological: cranial nerve grossly intact, normal sensation to touch, no weakness, no focal deficits, no new deficit Musculoskeletal: normal tone, normal strength, no muscle wasting Psychiatric: normal affect, normal behavior, A&O x 3 Hospitalist Results - Labs Result Diagrams: 08/30/19 21:03 08/30/19 21:03 Lab results: WBC 5.0 thou/uL (4.8-10.8) 08/30/19 21:03 Hgb 11.9 g/dL (12.0-16.0) L 08/30/19 21:03 Hct 35.6 % (36.0-47.0) L 08/30/19 21:03 MCV 91.2 fL (78.0-98.0) 06/05/20 21:03 Plt Count 165 thou/uL (130-400) 08/30/19 21:03 Band Neuts % (Manual) 3 % (5-11) L 08/30/19 21:03 Sodium 137 mmol/L (136-145) 08/30/19 21:03 Potassium 4.6 mmol/L (3.5-5.1) 08/30/19 21:03 Chloride 100 mmol/L (98-107) 08/30/19 21:03 Carbon Dioxide 28 mmol/L (23-31) 08/30/19 21:03 BUN 28 mg/dL (9.8-20.1) H 08/30/19 21:03 Creatinine 1.32 mg/dL (0.6-1.1) H 08/30/19 21:03 Glucose 101 mg/dL (83-110) 08/30/19 21:03 Calcium 10.0 mg/dL (7.8-10.44) 08/30/19 21:03 Total Bilirubin 0.3 mg/dL (0.2-1.2) 08/30/19 21:03 AST 28 U/L (5-34) 08/30/19 21:03 ALT 23 U/L (8-55) 08/30/19 21:03 Alkaline Phosphatase 69 U/L (40-110) 08/30/19 21:03 Troponin I 0.011 ng/mL (< 0.028) 08/31/19 04:13 Serum Total Protein 7.6 g/dL (6.0-8.3) 08/30/19 21:03 Albumin 4.6 g/dL (3.4-4.8) 08/30/19 21:03 Urine Ketones Negative mg/dL (Negative) 08/30/19 22:20 Urine Blood Negative (Negative) 08/30/19 22:20 Urine Nitrite Negative (Negative) 08/30/19 22:20 Ur Leukocyte Esterase Negative Edgardo/uL (Negative) 08/30/19 22:20 Additional comment: VITAL SIGNS MonAug 30, 2019 20:37 IRAIDA Verdugo Nicole BP: 181/83 MAP: 115 Pulse: 65 Resp: 18 Temp: 97.8 (Oral) Pain: 0 O2 sat: 96 on (Room Air) Time: 08/30/2019 20:37. VITAL SIGNS MonAug 30, 2019 22:55 BonitaaustincaroleeIRAIDA Kary BP: 156/88 MAP: 110 Pulse: 67 Resp: 18 Pain: 0 O2 sat: 96 on (Room Air) Time: 08/30/2019 22:55. VITAL SIGNS MonAug 30, 2019 23:30 LucinaIRAIDAKary BP: 167/85 Pulse: 71 Resp: 18 Temp: 98.6 (Oral) Pain: 0 O2 sat: 97 on (Room Air) Time: 08/30/2019 23:30. XR Chest 1 View Portable Observe DT: MonAug 30, 2019 20:51 CXRP FRONTAL RADIOGRAPH CHEST: Date: 08/30/2019 COMPARISON: 02/26/2019. HISTORY: Pain. FINDINGS: Midline sternotomy wires and mediastinal clips are present. Heart and mediastinal contours are stable . No pneumothorax, pleural fluid, focal consolidation, or alveolar edema. Hiatal hernia overlies the right cardiophrenic angle region on the left. IMPRESSION: No acute findings. POS: [facility] . RADIOLOGY MonAug 30, 2019 23:16 DO Minor George XR Forearm Rt 2 View STANDARD Observe DT: MonAug 30, 2019 21:02 FORE2R FRONTAL AND LATERAL IMAGING OF RIGHT FOREARM: Date: 08/30/2019 COMPARISON: None. HISTORY: Trauma, pain. FINDINGS: No displaced fracture. IMPRESSION: No acute osseous abnormality. POS: [facility] . RADIOLOGY MonAug 30, 2019 23:[address] Brain WO Con Observe DT: MonAug 30, 2019 20:[address] WITHOUT CONTRAST: Date: 08/30/2019 COMPARISON: None. HISTORY: Injury. TECHNIQUE: Axial CT imaging at 5 mm intervals from vertex through skull base without contrast. FINDINGS: The imaged paranasal sinuses and mastoid air cells are well aerated. No displaced calvarial fracture. There is a focal area of scalp swelling in the posterior left parietal region. No intracranial hemorrhage, midline shift, or mass effect. A small area of parietooccipital encephalo malacia posteriorly on the right noted on axial image 13 suggesting prior insult. IMPRESSION: Scalp swelling near the vertex posteriorly/laterally on the left. No intracranial hemorrhage or displ aced calvarial fracture. POS: [facility] . RADIOLOGY MonAug 30, 2019 23:[address] Cervical Spine WO Con Observe DT: MonAug 30, 2019 20:[address] CERVICAL SPINE: Date: 08/30/2019 COMPARISON: None. HISTORY: Weakness, near syncope. TECHNIQUE: Axial CT imaging at 2.5 mm intervals through the cervical spine without contrast. Coronal and sagitta l reformatted imaging obtained. FINDINGS: The occipital condyles, the dens, and C1-2 articulation demonstrate no acute findings. There is mild anterolisthesis at the C5-6 level measuring 3.0 mm, and at the C7- T1 level measuring 2- 3 mm. There is a mild anterior wedge compression fracture of the T2 vertebral body, age-indeterminate, with approximately 25% loss of vertebral body height anteriorly. There is also a mild age-indeterminate s uperior end plate fracture of the T4 vertebral body. Within the cervical spine, there is multilevel b ilateral facet hypertrophic change. The C1 ring is intact. The imaged lung apices demonstrate no acute findings. No acute cervical spine fracture is evident. IMPRESSION: 1. Cervical spine degenerative change. No acute fracture of the cervical spine. 2. Age-indeterminate fractures of the T4 and T2 vertebral bodies as above. POS: [facility] . Hospitalist H&P A/P - Plan Plan: Patient is an 88 year old female with PHM HTN HLD hypothyroidism, CAD, CABG admitted for: # fall - admit to floor - orthostatic - telemetry - echo - Pt/ot/case management # history of HTN - trend, if low or high adjust meds # hypothyroidism - resume meds # spinal fractures - appreciate trauma and NSG consultation, follow final spinal Ct reports # PVCs - trend Mg and K and replete as needed
--- NOTE | 2019-08-31 07:37 | CT ---
THORACIC SPINE CT WITHOUT CONTRAST: Date: 08/30/2019 HISTORY: Pain. TECHNIQUE: Axial CT imaging at 3.75 mm intervals through the thoracic spine without contrast. Coronal and sagitt al reformatted imaging obtained. FINDINGS: Biapical pleural thickening is noted. There is a posterior right lower lobe pleural based pulmonary nodule on axial image 12 measuring appr oximately 8.0 mm. A moderate sized incompletely imaged hiatal hernia is present. As seen on recent CT of the cervical spine, there is an age-indeterminate mild anterior wedge marily daina fracture of T12 and a mild age-indeterminate superior end plate fracture of T4. There is no ante rolisthesis or retrolisthesis. No additional thoracic spine fracture is seen. IMPRESSION: 1. Mild age-indeterminate fractures of T2 and T4. 2. Hiatal hernia. 3. Pulmonary nodule within the right lower lobe measuring up to 8.0 mm. A follow-up CT examination o f the chest is thus advised in 6 months. POS: [facility]
--- NOTE | 2019-08-31 07:44 | CT ---
CT LUMBAR SPINE: Date: 08/30/2019 COMPARISON: CT abdomen and pelvis dated 02/21/2019. HISTORY: Fall, trauma, pain. TECHNIQUE: Axial CT imaging is obtained at 2.5 mm intervals through the lumbar spine without contrast. Coronal a nd sagittal reformatted imaging obtained. FINDINGS: Evaluation for central canal and/or neural foraminal stenosis is limited on routine CT examination. Anterolisthesis is noted at the L5-S1 level measuring approximately 6.0 mm. At the L1 level, there is a superior end plate fracture/burst fracture, which is stable when compared to 02/21/2019. There is mild stable retropulsion of osseous fragments into the central canal along t he superior margin of the L1 fracture. There is a new superior end plate fracture with mild retropulsion consistent with a burst fracture in volving the L2 vertebral body. The minimal degree of retropulsion at L2 demonstrates no associated ce ntral canal stenosis. No evidence for a fracture of L3, L4, or L5 noted. There is mild cortical irregularity involving the anterior aspect of the sacrum at the S4 level, new, suggesting an age-indeterminate mild cortical buccal fracture. Moderate sized hiatal hernia is partially imaged on this examination. Mild hazy partially imaged incr eased density noted within the left lower lobe region, likely on the basis of atelectasis. Kidneys and adrenal glands demonstrate no acute findings. There are scattered atherosclerotic calcif ications involving the abdominal aorta. There is diverticulosis of the sigmoid colon. There is prominent facet hypertrophy at the L4-5 and L5-S1 level bilaterally. IMPRESSION: 1. New superior end plate burst-type fracture of the L2 vertebral body, with minimal retropulsion an d no associated central canal stenosis. 2. Stable burst fracture of L1. 3. Age-indeterminate mild buccal fracture involving the anterior cortex of the sacrum at the S4 leve l. 4. Multilevel degenerative change within the lower lumbar spine, as above. POS: [facility]
[2019-08-31] MEDS: Sodium Chloride 0.9% 1,000 ML IV SCH ×2 (08:48→20:33)
[2019-08-31] MEDS: Metoprolol Tartrate 25 MG TAB PO SCH ×2 (08:49→20:30)
[2019-08-31] MEDS: Amlodipine 5 MG TAB PO SCH (08:49)
[2019-08-31] MEDS: Aspirin 81 mg Enteric Coated Tablet PO SCH (08:49)
[2019-08-31] MEDS: Polyethylene Glycol 3350 17 GM Packet PO SCH (08:50)
[2019-08-31] MEDS ORDERED: Famotidine 20 MG TAB PO SCH (09:00)
--- NOTE | 2019-08-31 14:52 | EKG ---
Test Reason : Blood Pressure : / mmHG Vent. Rate : 065 BPM Atrial Rate : 065 BPM P-R Int : 124 ms QRS Dur : 080 ms QT Int : 408 ms P-R-T Axes : 041 007 081 degrees QTc Int : 424 ms Sinus rhythm with Premature supraventricular complexes Otherwise normal ECG Confirmed by LEONOR HERRERA ([id number]), mapping editor CHANTALE NEGRON ([id number]) on 08/31/2019 2:51:50 PM Referred By: Confirmed By:LEONOR HERRERA
--- NOTE | 2019-08-31 15:17 | PDOC.EVN ---
Event Note - Event Note Event Note: Inherited patient this morning #presyncope -extensive workup for syncope and vertigo in the past that was benign -based on description, prerenal FELICITAS likely multifactorial - orthostatic, neurally mediated; -rare PACS on tele -per neurosurgery (ER report) fractures are old; no intervention indicated #pulmonar nodule -subscentimeter -CT in 6 months
[2019-08-31] MEDS ORDERED: Atorvastatin Calcium 10 MG TAB PO SCH (21:00)
[2019-09-01 04:34] LABS: Anion Gap 12 mmol/L (10-20); BUN (Urea Nitrogen) 16 mg/dL (9.8-20.1); Calc. Creatinine Clearance 41 mL/min (70-130); Calcium 8.7 mg/dL (7.8-10.44); Carbon Dioxide 22 mmol/L (23-31); Chloride 108 mmol/L (98-107); Estimated GFR-MDRD 65; Glucose 84 mg/dL (83-110); Potassium 3.8 mmol/L (3.5-5.1); Sodium 138 mmol/L (136-145)
[2019-09-01 05:38] LABS: Band 2 % (5-11); Eosinophils 3 % (0-10); Hemoglobin 10.3 g/dL (12.0-16.0); Lymphocytes 35 % (21-51); MDiff Complete? YES; Mean Corpuscular HGB CONC 32.4 g/dL (32.0-36.0); Mean Corpuscular Hemoglobin 29.7 pg (27.0-31.0); Mean Corpuscular Volume 91.6 fL (78.0-98.0); Mean Platelet Volume 9.5 fL (7.4-10.4); Monocytes 17 % (0-10); Neutrophil 43 % (42-75); Platelet Count 135 thou/uL (130-400); Platelet Morphology Comment Appears Adequate; RBC Distribution Width 12.8 % (11.5-14.5); Red Blood Cell (RBC) Count 3.47 mill/uL (4.20-5.40); White Blood Cell (WBC) Count 5.2 thou/uL (4.8-10.8)
[2019-09-01] MEDS ORDERED: Levothyroxine Sodium 50 MCG TAB PO SCH (06:00)
[2019-09-01] MEDS: Amlodipine 5 MG TAB PO SCH (08:21)
[2019-09-01] MEDS: Polyethylene Glycol 3350 17 GM Packet PO SCH (08:21)
[2019-09-01] MEDS: Aspirin 81 mg Enteric Coated Tablet PO SCH (08:21)
[2019-09-01] MEDS: Metoprolol Tartrate 25 MG TAB PO SCH (08:21)
[2019-09-01] MEDS ORDERED: Famotidine 20 MG TAB PO SCH (09:00)
[2019-09-01] MEDS: Sodium Chloride 0.9% 1,000 ML IV SCH (09:57)
[2019-09-01 11:53] VITALS: BP 117/59; TEMP 97.4
--- NOTE | 2019-09-02 08:29 | DIS ---
DATE OF ADMISSION: 08/31/2019 DATE OF DISCHARGE: 09/01/2019 HOSPITAL COURSE: Ms. Cordova is an 88-year-old female with medical history of hypertension; hypothyroidism; coronary artery disease, status post CABG, who presented to the ED after a fall. The patient was exerting herself in the laundry room and then walked back to the kitchen, there she felt dizzy and fell, hitting her head resulting in a laceration. Of note, the patient had recurrent episodes of dizziness in the past several years and was worked up multiple times for presyncope as well as vertigo. Workup mostly resulted in diagnosis of presyncope due to dehydration; however, some episodes were not associated with dehydration. This admission, the patient was found to have prerenal FELICITAS. She was diagnosed with presyncope due to dehydration, reflex syncope. Telemetry showed no arrhythmias that are associated with syncopal episodes. The patient received fluids and the FELICITAS resolved. She walked with physical therapy and had no additional episodes of dizziness or lightheadedness. She was discharged home with extensive education regarding prevention of presyncope and falling. She was also requested to follow up with her primary care physician in order to attempt to modify her medications, which were recently modified, in order to further reduce propensity for presyncopal episodes. In addition, during the workup, the patient was found to have a subcentimeter lung nodule. The patient was informed to follow up with a CT scan in 6 months to determine the potential for a malignant nodule. PHYSICAL EXAMINATION: VITAL SIGNS: Blood pressure 117/59, 97.4 Fahrenheit, pulse 58, respiratory rate 19, oxygen saturation 96% on room air. GENERAL: Lying comfortably in bed, in no apparent distress. HEENT: Left occipital contusion and laceration without active bleeding. PERRL. CARDIAC: Regular rate and rhythm. No murmurs, gallops, or rubs. LUNGS: Clear to auscultation bilaterally. No wheezing, rales, or rhonchi. ABDOMEN: Nontender, nondistended. Normal bowel sounds. EXTREMITIES: Strength 5/5 throughout upper and lower extremities. NEUROLOGIC: Cranial nerves II through XII grossly intact. Alert and oriented x3. MEDICATION LIST: No new medications. No modified medications. Old medications: 1. Amlodipine 5 mg daily. 2. Aspirin. 3. Atorvastatin. 4. Levothyroxine. 5. Metoprolol tartrate 37.5 mg p.o. b.i.d. Of note, imaging also showed age-indeterminate fractures of T2 and T4. Neurosurgery was consulted by the ED physician who determined it to be an old fracture that did not necessitate further intervention. Job ID: [id number]
== END 2019-09-01 15:40 | disposition home or self-care (01) | DRG 641 ==
LOC: ERS 20:33 → 2NO 08-31 01:02
PROVIDERS: ADMIT Internal Medicine; ATTEND Internal Medicine
DX: E86.0 Dehydration (principal); N17.9 Acute kidney failure, unspecified; M84.48XA Pathological fracture, other site, initial encounter for fracture; W01.0XXA Fall on same level from slipping, tripping and stumbling without subsequent striking against object, initial encounter; Y92.019 Unspecified place in single-family (private) house as the place of occurrence of the external cause; I25.10 Atherosclerotic heart disease of native coronary artery without angina pectoris; E03.9 Hypothyroidism, unspecified; I10 Essential (primary) hypertension; Z95.1 Presence of aortocoronary bypass graft; Z90.49 Acquired absence of other specified parts of digestive tract; Z79.890 Hormone replacement therapy; Z79.899 Other long term (current) drug therapy; Z79.82 Long term (current) use of aspirin; Z90.710 Acquired absence of both cervix and uterus
CPT/HCPCS: 12001; 36415; 70450; 71045; 72125; 72128; 72131; 80048; 80053; 81003; 83735; 84484; 85025; 93005

== ENCOUNTER 2019-09-10 16:08 | Emergency (ER) | payer MEDICARE, OTHER | END 2019-09-10 16:59 | disposition home or self-care (01) | LOC: ERS 16:08 | DX: S01.01XD Laceration without foreign body of scalp, subsequent encounter (principal); X58.XXXD Exposure to other specified factors, subsequent encounter ==

== ENCOUNTER 2019-11-29 12:20 | Inpatient (IN) | payer MEDICARE, OTHER ==
[~2019-11-29 12:20] MED LIST: Iopamidol-370 76% 500 ML 1 ML ONE
[2019-11-29 13:42] LABS: Hemoglobin 11.8 g/dL (12.0-16.0); Mean Corpuscular HGB CONC 33.4 g/dL (32.0-36.0); Mean Corpuscular Hemoglobin 30.2 pg (27.0-31.0); Mean Corpuscular Volume 90.3 fL (78.0-98.0); Mean Platelet Volume 8.3 fL (7.4-10.4); Platelet Count 134 thou/uL (130-400); Red Blood Cell (RBC) Count 3.91 mill/uL (4.20-5.40); White Blood Cell (WBC) Count 5.8 thou/uL (4.8-10.8)
[2019-11-29] MEDS ORDERED: Fleet Enema 133 ML BOT FS SCH (13:45)
[2019-11-29 13:47] LABS: ALT (SGPT) 16 U/L (8-55); AST (SGOT) 23 U/L (5-34); Albumin 4.4 g/dL (3.4-4.8); Alkaline Phosphatase 66 U/L (40-110); Anion Gap 15 mmol/L (10-20); BUN (Urea Nitrogen) 14 mg/dL (9.8-20.1); Bilirubin, Total 0.6 mg/dL (0.2-1.2); Calc. Creatinine Clearance 0 mL/min (70-130); Carbon Dioxide 22 mmol/L (23-31); Chloride 90 mmol/L (98-107); Estimated GFR-MDRD 64; Globulin 3.1 g/dL (2.4-3.5); Glucose 107 mg/dL (83-110); Potassium 4.2 mmol/L (3.5-5.1); Protein, Total 7.5 g/dL (6.0-8.3); Sodium 123 mmol/L (136-145)
--- NOTE | 2019-11-29 13:48 | RAD ---
Exam: Chest one view HISTORY:No bowel movement since 11/26/2019 Comparison: 08/30/2019 FINDINGS: Cardiac silhouette:Normal cardiac silhouette. There are sternotomy wires. Aorta: Atherosclerosis Pulmonary vessels: Normal Costophrenic angles: Clear LUNGS: Chronic lung parenchymal changes. No masses or consolidation. Calcified granuloma in the left hilar region, demonstrated. Pneumothorax: No pneumothorax. Stable bilateral apical pleural thickening. Osseous abnormalities: None IMPRESSION: 1. Atherosclerosis 2. Chronic lung parenchymal changes.
[2019-11-29 14:02] LABS: Band 8 % (5-11); Lymphocytes 20 % (21-51); MDiff Complete? YES; Monocytes 16 % (0-10); Neutrophil 55 % (42-75); Platelet Morphology Comment Appears Adequate; RBC Morphology Normal
[2019-11-29 14:03] LABS: Bilirubin Negative (Negative); Blood, Urine Negative (Negative); Clarity Clear (Clear); Glucose, Urine (Dipstick) Normal (Negative); Ketone, Urine Trace mg/dL (Negative); Leukocyte Negative Leu/uL (Negative); Nitrite Negative (Negative); Protein, Urine (Dipstick) Negative (Neg-Trace); Urobilinogen Normal mg/dL (Less than 2)
--- NOTE | 2019-11-29 17:32 | PDOC.HHP ---
Hospitalist HPI - History of Present Illness constipation/rectal pain History of Present Illness: This is an 89 year old female with past medical history of CABG who presented to the ER with constipation. The patient states that normally she has bowel movements daily. On Monday she reported rectal pain that was severe when sitting and moving around. It occasionally radiated to her abdomen. She had a similar pain before when she was constipated and thought it was from that. SHe took some miralax at home but not regularly because normally she does not need it. She came to the ER due to persistent constipation. She denied fevers or chills. She states she has been eating and drinking normally. She denies nausea or vomiting. She reports that her stools are black because she takes iron supplements. She has had colonoscopy ten years ago that was normal. SHe was admitted to the hospital 10/2018 for similar problem and GI did not want to do colonoscopy at that time. ED Course: The patient presented to the ER with normal vitals. Her labs showed a hemoglobin of 11.8 and sodium of 123. She was given bowel medications and had a bowel movement in the ER. Subsequently she started developing severe cramping in her RLQ and LLQ. She was given normal saline and admitted for further workup. Hospitalist ROS - Review of Systems Constitutional: denies: fever ENT: denies: ear pain, ear discharge Respiratory: denies: cough, dry, shortness of breath Cardiovascular: denies: chest pain, palpitations, orthopnea Gastrointestinal: reports: abdominal pain (rectal pain). denies: nausea, vomiting Genitourinary: denies: dysuria, frequency Musculoskeletal: denies: neck pain, shoulder pain Skin: denies: rash, lesions Neurological: denies: weakness, numbness Hospitalist History - Past Medical History Other Medical History: CAD s/p CABG - Past Surgical History Past Surgical History: reports: CABG - Family History Other Family History: No family history of GI problems - Social History Smoking Status: Never smoker Alcohol: reports: None Drugs: reports: none - Exam General Appearance: NAD, awake alert Eye: PERRL, anicteric sclera ENT: normocephalic atraumatic, no oropharyngeal lesions Neck: no JVD Heart: RRR, no murmur, no gallops, no rubs Respiratory: CTAB, no wheezes Gastrointestinal: soft, non-tender, non-distended, normal bowel sounds Gastrointestinal - other findings: rectal exam: significant amount of black stool Extremities: no cyanosis, no edema Skin: normal turgor, no lesions, no rashes Hospitalist Results - Labs Result Diagrams: 11/29/19 13:20 11/29/19 13:20 Lab results: WBC 5.8 thou/uL (4.8-10.8) 11/29/19 13:20 Hgb 11.8 g/dL (12.0-16.0) L 11/29/19 13:20 Hct 35.3 % (36.0-47.0) L 11/29/19 13:20 MCV 90.3 fL (78.0-98.0) 11/29/19 13:20 Plt Count 134 thou/uL (130-400) 11/29/19 13:20 Band Neuts % (Manual) 8 % (5-11) 11/29/19 13:20 Sodium 123 mmol/L (136-145) L 11/29/19 13:20 Potassium 4.2 mmol/L (3.5-5.1) 11/29/19 13:20 Chloride 90 mmol/L (98-107) L 11/29/19 13:20 Carbon Dioxide 22 mmol/L (23-31) L 11/29/19 13:20 BUN 14 mg/dL (9.8-20.1) 11/29/19 13:20 Creatinine 0.84 mg/dL (0.6-1.1) 11/29/19 13:20 Glucose 107 mg/dL (83-110) 11/29/19 13:20 Calcium 9.0 mg/dL (7.8-10.44) 11/29/19 13:20 Total Bilirubin 0.6 mg/dL (0.2-1.2) 11/29/19 13:20 AST 23 U/L (5-34) 11/29/19 13:20 ALT 16 U/L (8-55) 11/29/19 13:20 Alkaline Phosphatase 66 U/L (40-110) 11/29/19 13:20 Troponin I Less than 0.010 ng/mL (< 0.028) 11/29/19 13:20 B-Natriuretic Peptide 91.0 pg/mL (0-100) 09/04/20 13:20 Serum Total Protein 7.5 g/dL (6.0-8.3) 11/29/19 13:20 Albumin 4.4 g/dL (3.4-4.8) 11/29/19 13:20 Urine Ketones Trace mg/dL (Negative) A 11/29/19 13:50 Urine Blood Negative (Negative) 11/29/19 13:50 Urine Nitrite Negative (Negative) 11/29/19 13:50 Ur Leukocyte Esterase Negative Edgardo/uL (Negative) 11/29/19 13:50 Hospitalist H&P A/P - Plan Plan: This is an 89 year old female who presented for constipation, found to have black stools (which is chronic), admitted for hyponatremia Hyponatremia - sodium is 123, baseline was 138 in August. - will start IV fluids Abdominal pain/rectal pain - she has black stools, but this is likely from iron supplements given hemoglobin has improved from previously - will check stool guaiac - check CT abdomen to evaluate for colitis - UA normal Hypertension - continue metoprolol, hold amlodipine for now Hypothyroidism - continue levothyroxine CAD s/p CABG -continue aspirin and statin and metoprolol
[2019-11-29] MEDS ORDERED: Polyethylene Glycol 3350 17 GM Packet PO PRN (17:47)
--- NOTE | 2019-11-29 17:48 | PDOC.FMACP ---
Advance Care Planning - Note Participants: patient Summary: Advanced Care Planning was discussed. The diagnosis, prognosis and goals of care were discussed. Appropriate forms and documentation to accomplish the goals of care were discussed. All questions were answered. The Palliative Care Team will be engaged to assist with completion of any outstanding forms that are needed. The patient states she would like to be DNR/DNi, and HCP is son Time Spent (mins): 30
[2019-11-29 18:06] VITALS: BMI 23.0
[2019-11-29] MEDS: Sodium Chloride 0.9% 1,000 ML IV SCH (18:32)
--- NOTE | 2019-11-29 21:32 | CT ---
CT ABDOMEN AND PELVIS PERFORMED WITH CONTRAST ENHANCEMENT: 11/29/19 HISTORY: Abdominal and rectal pain. COMPARISON: An 11/14/18 study. The lung bases show some chronic appearing change. There is scarring in both lung bases but also some atelectatic type changes. There is a large hiatal hernia noted. Liver shows fatty change. The spleen has multiple granulomas. Pancreas and gallbladder regions appear unremarkable. Right and left adrenal glands are normal. There is marked right sided and moderate left sided hydrone phrosis and hydroureter. This may just purely be on the basis of a rather markedly distended bladder. I do not see any obstructing calculus. Hypodensity within the left kidney is most likely a cyst. No significant periaortic or mesenteric adenopathy. Some colonic diverticulosis is noted. CT OF PELVIS PERFORMED WITH CONTRAST ENHANCEMENT: A large amount of stool present within the colon consistent with a fecal impaction. There is pericolo gary fat stranding. I do not see any pneumatosis but changes would suggest a stercoral colitis. Review of osseous structures show arthritic changes of the spine. Compression changes involving the s uperior end plate at L1 and L2 are similar in appearance to what was seen on CT of the lumbar spine . IMPRESSION: 1. Large hiatal hernia. 2. Fatty change of the liver. 3. Fairly pronounced bilateral hydronephrosis and hydroureter particularly on the right. This ma y be purely on the basis of a markedly distended bladder. 4. Fecal impaction with findings that would suggest a stercoral colitis with pericolonic fat str anding in this region. POS: OFF
[2019-11-29] MEDS: Atorvastatin Calcium 10 MG TAB PO SCH (22:10)
[2019-11-29] MEDS: Acetaminophen 500 MG TAB PO PRN (22:10)
[2019-11-29] MEDS: Metoprolol Tartrate 25 MG TAB PO SCH (22:10)
[2019-11-30] MEDS: Sodium Chloride 0.9% 1,000 ML IV SCH ×4 (03:30→21:26)
[2019-11-30] MEDS: Levothyroxine Sodium 50 MCG TAB PO SCH (06:04)
[2019-11-30 09:13] LABS: Anion Gap 12 mmol/L (10-20); BUN (Urea Nitrogen) 7 mg/dL (9.8-20.1); Calc. Creatinine Clearance 50 mL/min (70-130); Calcium 8.2 mg/dL (7.8-10.44); Carbon Dioxide 20 mmol/L (23-31); Chloride 95 mmol/L (98-107); Estimated GFR-MDRD 76; Glucose 87 mg/dL (83-110); Potassium 4.1 mmol/L (3.5-5.1); Sodium 123 mmol/L (136-145)
[2019-11-30] MEDS: Aspirin 81 mg Enteric Coated Tablet PO SCH (09:24)
[2019-11-30] MEDS: Metoprolol Tartrate 25 MG TAB PO SCH ×2 (09:28→21:25)
[2019-11-30 12:38] LABS: SARS-CoV-2 MS2 Positive; SARS-CoV-2 N Gene Negative; SARS-CoV-2 S Gene Negative; SARS-CoV-2 by NAA Not Detected (NotDetected); SARS-CoV-2 orf1ab Negative
--- NOTE | 2019-11-30 13:14 | PDOC.HOSPP ---
- Subjective Encounter Date: 11/30/19 Subjective: The patient was seen and examined. She is complaining of diarrhea today. - Objective Vital Signs & Weight: Vital Signs (12 hours) Temp Pulse Resp BP BP Pulse Ox 11/30/19 07:23 98.8 F 72 16 152/88 H 94 L 11/30/19 04:00 98.3 F 74 18 142/79 H 93 L Weight Admit Weight 129 lb 14.4 oz Weight 129 lb I&O: 11/29/19 11/30/19 12/01/19 06:59 06:59 06:59 Output Total 6 Balance -6 Result Diagrams: 11/29/19 13:20 11/30/19 08:46 Hospitalist ROS - Medication Medications: Active Medications Generic Name Dose Route Start Last Admin Trade Name Freq PRN Reason Stop Dose Admin Acetaminophen 500 mg 11/29/19 22:02 11/29/19 22:10 Tylenol PO 500 mg Q6H PRN Administration Pain Aspirin 81 mg 11/30/19 09:00 11/30/19 09:24 Ecotrin PO 81 mg DAILY LEEANN Administration Atorvastatin Calcium 10 mg 11/29/19 21:00 11/29/19 22:10 Lipitor PO 10 mg HS LEEANN Administration Sodium Chloride 1,000 mls @ 150 mls/hr 11/30/19 09:46 11/30/19 11:53 Normal Saline 0.9% IV Not Given .Q6H40M LEEANN Levothyroxine Sodium 50 mcg 11/30/19 06:00 11/30/19 06:04 Synthroid PO 50 mcg 0600 LEEANN Administration Metoprolol Tartrate 37.5 mg 11/29/19 21:00 11/30/19 09:28 Lopressor PO 37.5 mg BID LEEANN Administration - Exam General Appearance: awake alert ENT: normocephalic atraumatic Neck: supple, no JVD Heart: RRR, no murmur, no gallops, no rubs Respiratory: CTAB, no wheezes, no rales, no ronchi, normal chest expansion Gastrointestinal: soft, non-tender, non-distended, normal bowel sounds Hosp A/P (1) Hyponatremia Code(s): E87.1 - HYPO-OSMOLALITY AND HYPONATREMIA Status: Acute (2) Constipation Code(s): K59.00 - CONSTIPATION, UNSPECIFIED Status: Acute (3) FELICITAS (acute kidney injury) Code(s): N17.9 - ACUTE KIDNEY FAILURE, UNSPECIFIED Status: Acute (4) HTN (hypertension) Code(s): I10 - ESSENTIAL (PRIMARY) HYPERTENSION Status: Chronic (5) Hypothyroidism Code(s): E03.9 - HYPOTHYROIDISM, UNSPECIFIED Status: Chronic - Plan Hyponatremia did not improve since yesterday. Suspecting euvolemic versus hypovolemic hyponatremia. Check urine sodium and urine osmolality. Change her diet to regular with 1 L fluid restriction and continue IV fluids at 150 cc/h. Follow BMP tomorrow to document improvement in her kidney function. Her diarrhea is likely overflow incontinence as her CT scan showing constipation. Continue as needed laxatives.
--- NOTE | 2019-11-30 13:56 | PDOC.EVN ---
Event Note - Event Note Event Note: Patient status changed to inpatient due to persistent hyponatremia, need for electrolyte monitoring, and IV fluids.
[2019-11-30] MEDS: Atorvastatin Calcium 10 MG TAB PO SCH (21:25)
[2019-11-30] MEDS: Acetaminophen 500 MG TAB PO PRN (21:25)
[2019-12-01] MEDS: Levothyroxine Sodium 50 MCG TAB PO SCH (05:08)
[2019-12-01] MEDS: Sodium Chloride 0.9% 1,000 ML IV SCH ×3 (05:08→18:16)
[2019-12-01 06:03] LABS: Anion Gap 12 mmol/L (10-20); BUN (Urea Nitrogen) 8 mg/dL (9.8-20.1); Calc. Creatinine Clearance 51 mL/min (70-130); Calcium 8.1 mg/dL (7.8-10.44); Carbon Dioxide 18 mmol/L (23-31); Chloride 107 mmol/L (98-107); Estimated GFR-MDRD 78; Glucose 77 mg/dL (83-110); Sodium 133 mmol/L (136-145)
[2019-12-01 06:16] LABS: Potassium, Urine 16.8 mmol/L
[2019-12-01] MEDS: Aspirin 81 mg Enteric Coated Tablet PO SCH (09:01)
[2019-12-01] MEDS: Metoprolol Tartrate 25 MG TAB PO SCH ×2 (09:04→22:24)
--- NOTE | 2019-12-01 14:13 | PDOC.HOSPP ---
- Subjective Encounter Date: 12/01/19 Subjective: The patient is feeling better. She had a couple of small loose stools today. The patient relayed that she is feeling full and believes she is still constipated. - Objective Vital Signs & Weight: Vital Signs (12 hours) Temp Pulse Resp BP BP Pulse Ox 12/01/19 08:00 97.8 F 67 18 134/68 94 L 12/01/19 04:00 98.3 F 67 17 145/66 H 94 L Weight Admit Weight 129 lb 14.4 oz Weight 129 lb I&O: 11/30/19 12/01/19 12/02/19 06:59 06:59 06:59 Output Total 6 Balance -6 Result Diagrams: 11/29/19 13:20 12/01/19 05:25 Hospitalist ROS - Medication Medications: Active Medications Generic Name Dose Route Start Last Admin Trade Name Freq PRN Reason Stop Dose Admin Acetaminophen 500 mg 11/29/19 22:02 11/30/19 21:25 Tylenol PO 500 mg Q6H PRN Administration Pain Aspirin 81 mg 11/30/19 09:00 12/01/19 09:01 Ecotrin PO 81 mg DAILY LEEANN Administration Atorvastatin Calcium 10 mg 11/29/19 21:00 11/30/19 21:25 Lipitor PO 10 mg HS LEEANN Administration Sodium Chloride 1,000 mls @ 150 mls/hr 11/30/19 09:46 12/01/19 05:08 Normal Saline 0.9% IV 1,000 mls .Q6H40M LEEANN Administration Levothyroxine Sodium 50 mcg 11/30/19 06:00 12/01/19 05:08 Synthroid PO 50 mcg 0600 LEEANN Administration Metoprolol Tartrate 37.5 mg 11/29/19 21:00 12/01/19 09:04 Lopressor PO 37.5 mg BID LEEANN Administration Polyethylene Glycol 17 gm 11/29/19 17:47 12/01/19 09:05 Miralax PO 17 gm DAILYPRN PRN Administration Constipation - Exam General Appearance: awake alert ENT: normocephalic atraumatic Heart: RRR Respiratory: normal chest expansion, no tachypnea Neurological: cranial nerve grossly intact, no new deficit Hosp A/P (1) Hyponatremia Code(s): E87.1 - HYPO-OSMOLALITY AND HYPONATREMIA Status: Acute (2) Constipation Code(s): K59.00 - CONSTIPATION, UNSPECIFIED Status: Acute (3) FELICITAS (acute kidney injury) Code(s): N17.9 - ACUTE KIDNEY FAILURE, UNSPECIFIED Status: Acute (4) HTN (hypertension) Code(s): I10 - ESSENTIAL (PRIMARY) HYPERTENSION Status: Chronic (5) Hypothyroidism Code(s): E03.9 - HYPOTHYROIDISM, UNSPECIFIED Status: Chronic - Plan Based on urine sodium, urine osmolality, and the patient's response to IV fluids , her hyponatremia is likely hypovolemic. Continue regular diet 1 L fluid restriction and continue IV fluids at 150 cc/h. Her diarrhea is likely overflow incontinence. We will administer a Fleet enema today. Ambulating well with PT and OT. Likely discharge home tomorrow.
[2019-12-01] MEDS: Atorvastatin Calcium 10 MG TAB PO SCH (22:24)
[2019-12-01] MEDS: Acetaminophen 500 MG TAB PO PRN (22:24)
[2019-12-02 06:09] LABS: Anion Gap 11 mmol/L (10-20); BUN (Urea Nitrogen) 7 mg/dL (9.8-20.1); Calc. Creatinine Clearance 52 mL/min (70-130); Calcium 7.6 mg/dL (7.8-10.44); Carbon Dioxide 19 mmol/L (23-31); Chloride 111 mmol/L (98-107); Estimated GFR-MDRD 80; Glucose 83 mg/dL (83-110); Sodium 138 mmol/L (136-145)
[2019-12-02] MEDS: Levothyroxine Sodium 50 MCG TAB PO SCH (06:13)
[2019-12-02] MEDS: Metoprolol Tartrate 25 MG TAB PO SCH (08:50)
[2019-12-02] MEDS: Aspirin 81 mg Enteric Coated Tablet PO SCH (08:51)
[2019-12-02] MEDS: Sodium Chloride 0.9% 1,000 ML IV SCH (08:54)
[2019-12-02] MEDS ORDERED: Potassium Chloride 20 MEQ TAB PO SCH (09:15)
[2019-12-02 16:06] VITALS: BP 138/71; TEMP 97.8
--- NOTE | 2019-12-03 08:31 | DIS ---
DATE OF ADMISSION: 11/30/2019 DATE OF DISCHARGE: 12/02/2019 DISCHARGE DIAGNOSES: 1. Hyponatremia. 2. Constipation. 3. Acute kidney injury. 4. Hypertension. 5. Hypothyroidism. DISCHARGE MEDICATIONS: The patient will continue her home medications with the following changes; 1. Start Senokot-S 1 tablet daily as needed for constipation. 2. Fiber Gummies once daily with food. 3. Amlodipine 5 mg will be discontinued. HISTORY OF PRESENT ILLNESS AND HOSPITAL COURSE: The patient is an 89-year-old female with past medical history of coronary artery disease status post CABG, history of hypertension, and hypothyroidism who presented to the hospital with complaints of rectal pain that was worse when sitting and moving around. The pain occasionally radiates to her abdomen. The patient stated that she has been constipated for the past couple of days. In the ER, CT scan of the abdomen revealed presence of large amount of stool in her lower colon and rectum with possible fecal impaction. She was also found to be hyponatremic and her creatinine level was elevated. The patient was clinically dehydrated and she was started on IV fluids. Laxatives were initiated, but the patient was having diarrhea on the second day of her hospital stay. She was still complaining of sensation of rectal fullness. Her diarrhea was thought to be due to overflow incontinence and she received a Fleet enema, which led to relief of her pain after she had a large bowel movement. The patient's sodium level improved gradually with hydration and her creatinine level returned to baseline. Job ID: [id number]
--- NOTE | 2019-12-07 17:01 | EKG ---
Test Reason : PAIN Blood Pressure : / mmHG Vent. Rate : 075 BPM Atrial Rate : 075 BPM P-R Int : 160 ms QRS Dur : 090 ms QT Int : 404 ms P-R-T Axes : 063 032 079 degrees QTc Int : 451 ms Normal sinus rhythm Possible Left atrial enlargement Borderline ECG Confirmed by LEONOR HERRERA ([id number]), editor trade journal TORITO REYNA ([id number] on 12/07/2019 5:00:55 PM Referred By: Confirmed By:LEONOR HERRERA
== END 2019-12-02 16:11 | disposition home or self-care (01) | DRG 641 ==
LOC: ERS 12:20 → T4-A 15:40 → OBSVTOIN 11-30 13:57
PROVIDERS: ADMIT Internal Medicine; ATTEND Internal Medicine
DX: E87.1 Hypo-osmolality and hyponatremia (principal); N17.9 Acute kidney failure, unspecified; K56.41 Fecal impaction; Z20.828 Contact with and (suspected) exposure to other viral communicable diseases; Z66 Do not resuscitate; I10 Essential (primary) hypertension; E03.9 Hypothyroidism, unspecified; I25.10 Atherosclerotic heart disease of native coronary artery without angina pectoris; E86.0 Dehydration; E78.2 Mixed hyperlipidemia; M81.0 Age-related osteoporosis without current pathological fracture; D50.9 Iron deficiency anemia, unspecified; E86.1 Hypovolemia; R19.7 Diarrhea, unspecified; Z95.1 Presence of aortocoronary bypass graft; Z90.710 Acquired absence of both cervix and uterus; Z79.899 Other long term (current) drug therapy; Z79.890 Hormone replacement therapy; Z79.82 Long term (current) use of aspirin
CPT/HCPCS: 36415; 51701; 71045; 74177; 80048; 80053; 81003; 82274; 82436; 83880; 83935; 84133; 84300; 84484; 85025; 87635; 93005; 96360; 96361; G0378; Q9967; U0003

== ENCOUNTER 2019-12-19 15:17 | Outpatient (CLI) | payer MEDICARE, OTHER ==
--- NOTE | 2019-12-19 16:04 | ULT ---
Renal ultrasound: 12/19/2019 COMPARISON: CT abdomen and pelvis 11/29/2019 History: Reevaluate bilateral hydronephrosis noted on prior CT exam TECHNIQUE: Multiplanar grayscale sonographic imaging of the kidneys and urinary bladder obtained. FINDINGS: Right kidney measures 9.5 x 4.0 x 4.2 cm. The urinary bladder volume is 38 cc. Left kidney measures 9.1 x 4.2 x 4.4 cm. No hydronephrosis is noted on either side. There is a cyst w ithin the lower pole of the left kidney measuring 1.8 x 1.8 x 1.8 cm. IMPRESSION: No hydronephrosis. Lower pole left renal cyst.
== END 2019-12-19 15:18 | disposition home or self-care (01) ==
LOC: BICULT 15:17
PROVIDERS: ATTEND Family Medicine
DX: N13.30 Unspecified hydronephrosis (principal); N28.1 Cyst of kidney, acquired
CPT/HCPCS: 76770

== ENCOUNTER 2020-01-18 00:55 | Inpatient (IN) | payer MEDICARE, OTHER ==
[2020-01-18] MEDS ORDERED: Dexamethasone 10 MG/ML VIAL ONE (01:40)
--- NOTE | 2020-01-18 01:47 | PDOC.HHP ---
Hospitalist HPI - History of Present Illness Lethargy and headache History of Present Illness: PCP: Mayra The majority of the H&P was taken from the patient's son, Raman, who is at bedside at time of assessment. The patient is alert and oriented, PECHANGA and resting comfortably in bed. She only has one of her hearing aids with her. The patient is an 89-year-old female with a past medical history significant for CAD, hypertension, hyperlipidemia, hypothyroidism and iron deficiency anemia that presents to the emergency department via EMS as a transfer from [facility]. The patient's son reports that she appeared to be lethargic, generally weak and somewhat "confused" this morning. He reports that she did participate with physical therapy this morning, however, she just was not herself. Usually, she ambulates with a cane and and needs little assistance. Today, she needed help moving around. He reports that her gait appeared to be shuffled. He also believes that she had a headache, stating that she would rub her right presybeterian with her hand and would grimace, as if she was uncomfortable. He reports that he checked her blood pressure and it was high multiple times this afternoon. The highest reading he remembers was 191/80. He denies any recent trauma or fall. He denies any slurring of speech, difficulty swallowing, or focal extremity weakness. He denies any recent fever or illness. No complaint of neck pain or stiffness. No known Covid contacts. No history of DVT/PE. She is not on any hormone therapy. No history of migraines. No complaint of chest pain, shortness of breath, nausea, vomiting, diarrhea. No complaints of dysuria or hematuria. The patient was taken to [facility] for further evaluation. . ED Course: [facility] ER: CT brain no acute intracranial process. 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 CT chest no acute cardiopulmonary findings, large calcified granuloma is noted in the lingula. There is a large sliding hiatal hernia. CT abdomen pelvis no acute processes. EKG sinus rhythm, 60 bpm CXR no acute process. WBC 6.4, LA 1.0, Covid negative, flu negative. Blood/urine CX pending. CMP and LFTs unremarkable. Mag 1.9, phosphorus 3.7 UA unremarkable Sed rate 50 Given: Zofran, 500 mL normal saline, Tylenol Nate ER: VITAL SIGNS Sat Jan 18, 2020 01:02 IRAIDA Purdy, Nelida BP: 167/81, Pulse: 61, Resp: 20, Temp: 97.5 (Oral), Pain: 0, O2 sat: 96 on (Room Air), Time: 01/18/2020 01:02. Medication administration: Decadron Phosphate injection 20 mg IV Push Acknowledged 01:35 01/18/2020 Hospitalist ROS - Review of Systems All other systems reviewed; all pertinent +/- noted in HPI/Subj - Medication Medications: 1. Metoprolol tartrate 37.5 mg p.o. twice daily 2. Aspirin 81 mg p.o. daily 3. Atorvastatin 10 mg p.o. daily 4. Lisinopril 5 mg p.o. twice daily 5. Magnesium 40 mg p.o. nightly 6. Synthroid 50 mcg p.o. every morning 7. Vitamin D3 2000 mg p.o. nightly Allergies:No Known Drug Allergies Hospitalist History - Past Medical History Source: patient, family Cardiac: reports: CAD, HTN, Hyperlipidemia Heme/Onc: reports: Iron deficiency anemia Endocrine: reports: Hypothyroidism, Osteoporosis - Past Surgical History Past Surgical History: reports: CABG (X3), Hysterectomy - Family History Other Family History: Noncontributory to this case - Social History Smoking Status: Never smoker Alcohol: reports: None Drugs: reports: none Living Situation: With Family Occupation: Does not work Activity level: uses cane/walker - Exam General Appearance: NAD, awake alert Eye: PERRL, anicteric sclera ENT: normocephalic atraumatic, dry oral mucosa ENT - other findings: PECHANGA, has hearing aids Neck: supple, symmetric, no JVD Heart: RRR, no murmur, no gallops, no rubs, normal peripheral pulses Respiratory: CTAB, no wheezes, no rales, no ronchi, normal chest expansion, no tachypnea Gastrointestinal: soft, non-tender, normal bowel sounds, no guarding, no rigidity Extremities: no cyanosis, no edema Skin: no rashes Neurological: cranial nerve grossly intact, no focal deficits. negative: facial droop, speech deficit Musculoskeletal: generalized weakness Psychiatric: normal affect, A&O x 3 Psychiatric - other findings: PECHANGA, follows commands, GCS 15 Hospitalist Results - Labs Lab results: Sodium 132, potassium 5.2, BUN 12, creatinine 0.2, ALP 44, AST 36, ALT 20, T bili 0.7 WBC 6.4, Hgb 11.5, HCT 37, platelets 150 LA 1.0, blood/urine CX pending Mag 1.9, phosphorus 3.7 ESR 50 UA unremarkable Covid negative, flu negative - Radiology Interpretation CT scan - head Status: report reviewed by me Additional Comment: 1. no acute intracranial abnormality. 2. 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 3. Periventricular white matter microangiopathic disease with compensatory enlargement of the ventricles. CT scan - chest Status: report reviewed by me Additional Comment: 1. Apparent opacity in the medial right upper lobe seen on chest x-ray is demonstrated to be due to tortuous but otherwise unremarkable blood vessels. 2. No acute cardiopulmonary findings. 3. There is mild pleural-parenchymal scarring in the lung apices. 4. Large calcified granuloma is noted in the lingula. 5. There is a large sliding hiatal hernia. CT scan - pelvis Status: report reviewed by me Additional Comment: 1. 1.7 cm simple appearing cyst in the left renal cortex and not fully characterized subcentimeter hypodensity in the right renal cortex are likely benign and no follow-up imaging is recommended. 2. There is diverticulosis in the sigmoid colon, without CT evidence of diverticulitis. 3. Compression involving the superior endplates of L1, L2 and L3 are uncertain age without specific evidence of acuity. Retropulsion of fragments by 4-5 mm into the spinal canal is noted at each of these levels. 4. There is a grade 1 degenerative anterolisthesis of L5 forward on S1 by approximately [address] scan - abdomen Status: report reviewed by me Chest x-ray Status: report reviewed by me Additional Comment: Atelectasis at the left base. There is an opacity in the medial right upper lobe. No pleural effusion. No pneumothorax. Heart size within normal limits. Hospitalist H&P A/P - Problem (1) AMS (altered mental status) Code(s): R41.82 - ALTERED MENTAL STATUS, UNSPECIFIED Status: Acute (2) Right temporal headache Code(s): R51.9 - HEADACHE, UNSPECIFIED Status: Acute (3) Hypertension Code(s): I10 - ESSENTIAL (PRIMARY) HYPERTENSION Status: Chronic (4) Hyperlipidemia Code(s): E78.5 - HYPERLIPIDEMIA, UNSPECIFIED Status: Chronic (5) CAD (coronary artery disease) Code(s): I25.10 - ATHSCL HEART DISEASE OF [place] CORONARY ARTERY W/O ANG PCTRS Status: Chronic (6) Iron deficiency anemia Code(s): D50.9 - IRON DEFICIENCY ANEMIA, UNSPECIFIED Status: Chronic (7) Hypothyroidism Code(s): E03.9 - HYPOTHYROIDISM, UNSPECIFIED Status: Chronic - Plan Plan: 89/F with PMH CAD, HTN, HLD, hypothyroidism presents for headache and altered mental status. Admit to stroke unit, observation status. Expected length of stay less than 2 midnights. Presented stable vital signs. EKG normal sinus rhythm, no ST elevation. CXR no acute process. CT brain subacute to chronic right occipital infarct. CT chest no acute cardiopulmonary process. CT abdomen pelvis no acute processes. ESR 50. Covid/flu negative. WBC 6.4, LA 1.0 Blood/urine CX pending. #AMS Rule out stroke. Order MRI, carotid Doppler, echocardiogram. Consult neurology and stroke team. Give aspirin and statin. Permissive hypertension. Neurochecks. #Right temporal headache Concern for temporal arteritis. Given dexamethasone in ER. Consult neurology. #Hypertension Reported elevated BP at home. Presented normotensive. Takes metoprolol tartrate, lisinopril at home. Restart home medications as appropriate. Continue to monitor BP. #Hyperlipidemia Check FLP. Restart home dose atorvastatin. #CAD Takes baby aspirin at home. Continue aspirin. #Iron deficiency anemia Presented Hgb 11.5, HCT 37. Appears stable. Denies hemoptysis, hematochezia, melena. #Hypothyroidism Check TSH. Restart home dose of Synthroid. SCDs for DVT prophylaxis. No GI prophylaxis. Full code. Medical decision maker is her son, Raman at [phone]. Discussed the case with Dr. Tavares Contreras.
[2020-01-18] MEDS ORDERED: Labetalol HCl 100 MG/20 ML VIAL SLOW IVP PRN (02:44)
[2020-01-18] MEDS ORDERED: Enalaprilat Dihydrate 1.25 MG/ML VIAL SLOW IVP PRN (02:44)
[2020-01-18] MEDS ORDERED: Sodium Chloride 0.9% 1,000 ML IV SCH (02:45)
[2020-01-18] MEDS ORDERED: Ondansetron ODT 4 MG TAB PO PRN (02:50)
[2020-01-18] MEDS ORDERED: Ondansetron PF 4 MG/2 ML Vial IVP PRN (02:50)
[2020-01-18] MEDS ORDERED: Calcium Carbonate 500 MG ChewTAB PO PRN (02:50)
[2020-01-18] MEDS ORDERED: Senokot S 8.6-50 MG TAB PO PRN (02:50)
[2020-01-18 02:55] LABS: Troponin I 0.011 ng/mL (< 0.028)
[2020-01-18] MEDS ORDERED: Aspirin 81 mg Enteric Coated Tablet PO SCH (03:00)
[2020-01-18 05:01] LABS: #Lymphocytes 0.6 thou/uL (1.20-3.40); #Monocytes 0.2 thou/uL (0.11-0.59); #Neutrophils 5.8 thou/uL (1.40-6.50); %Eosinophils 0.2 % (0.0-10.0); %Lymphocytes 8.7 % (21.0-51.0); %Monocytes 2.7 % (0.0-10.0); %Neutrophils 88.5 % (42.0-75.0); Hemoglobin 12.9 g/dL (12.0-16.0); Mean Corpuscular Hemoglobin 30.2 pg (27.0-31.0); Mean Corpuscular Volume 88.7 fL (78.0-98.0); Mean Platelet Volume 8.9 fL (7.4-10.4); Platelet Count 141 thou/uL (130-400); RBC Distribution Width 12.6 % (11.5-14.5); Red Blood Cell (RBC) Count 4.28 mill/uL (4.20-5.40); White Blood Cell (WBC) Count 6.5 thou/uL (4.8-10.8)
[2020-01-18 05:23] LABS: Anion Gap 17 mmol/L (10-20); BUN (Urea Nitrogen) 10 mg/dL (9.8-20.1); Calc. Creatinine Clearance 0 mL/min (70-130); Carbon Dioxide 17 mmol/L (23-31); Cardiac Risk 1.8 (Less than 4.5); Chloride 91 mmol/L (98-107); Cholesterol 138 mg/dl (< 200 Desired); Estimated GFR-MDRD 66; Glucose 115 mg/dL (83-110); HDL Cholesterol 76 mg/dL (>60 Neg Risk); LDL Cholesterol, Calculated 52 mg/dL; Potassium 4.6 mmol/L (3.5-5.1); Sodium 120 mmol/L (136-145); Triglycerides 50 mg/dL (Less than 150)
[2020-01-18 05:25] LABS: Troponin I 0.023 ng/mL (< 0.028)
[2020-01-18 05:46] LABS: Thyroid Stimulating Hormone 0.2965 uIU/mL (0.35-4.94)
[2020-01-18 05:52] LABS: Vitamin B12 Greater than 2000 pg/mL (211-911)
[2020-01-18] MEDS ORDERED: Levothyroxine Sodium 50 MCG TAB PO SCH (06:00)
[2020-01-18] MEDS: Acetaminophen 325 MG TAB PO PRN ×3 (06:43→21:06)
--- NOTE | 2020-01-18 08:28 | ULT ---
US Carotid Doppler STANDARD History: Evaluate for cerebrovascular accident Comparison: Ultrasound carotid Doppler 2019 Findings: Real-time grayscale, color and spectral analysis of the carotid and vertebral arteries was performed. High-grade plaque both calcific and soft of both carotid bulbs. Mild elevation right internal carotid artery peak systolic velocity 136 cm/s. No elevation of the left carotid system. Antegrade flow both vertebral arteries. Right ICA/CCA ratio is 1.6 and the left ICA/CCA ratio is 0.8. Impression: Mild 50-69% stenosis proximal right internal carotid artery.
[2020-01-18 08:34] LABS: Anion Gap 17 mmol/L (10-20); BUN (Urea Nitrogen) 11 mg/dL (9.8-20.1); Calc. Creatinine Clearance 38 mL/min (70-130); Calcium 8.6 mg/dL (7.8-10.44); Carbon Dioxide 17 mmol/L (23-31); Chloride 91 mmol/L (98-107); Estimated GFR-MDRD 68; Glucose 132 mg/dL (83-110); Potassium 4.3 mmol/L (3.5-5.1); Sodium 121 mmol/L (136-145)
[2020-01-18] MEDS: Metoprolol Tartrate 25 MG TAB PO SCH ×2 (09:44→21:05)
[2020-01-18] MEDS: Aspirin 81 mg Enteric Coated Tablet PO SCH (09:45)
[2020-01-18] MEDS: Lisinopril 5 MG TAB PO SCH ×2 (09:46→21:06)
--- NOTE | 2020-01-18 11:46 | MRI ---
EXAM: MRI Brain WO Con PROVIDED CLINICAL HISTORY: Altered mental status. COMPARISON: 01/15/2019 FINDINGS: Again noted is increased FLAIR and T2-weighted signal intensity seen in the periventricular and subco rtical white matter which is nonspecific but likely reflective of chronic small vessel ischemic changes which have not progressed compared to prior exam. There is a stable area of encephalomalacia and gliosis again seen in the right occipital lobe. There is motion artifact which does degrade image quality, but there are no areas of restricted diffusion to suggest an acute infarction. The septum pellucidum and third ventricle are in the midline. There is mild cerebral and cerebellar v olume loss again seen. The basilar artery flow-void is not well seen due to tortuosity. There otherwise appear to be grossly appropriate flow voids in the large intracranial vessels at the base of the brain. Tribe lenses are absent. Minimal mucosal thickening is seen in the left sphenoid. Paranasal sinuses are otherwise clear. Visualized skull base has a normal MRI appearance. IMPRESSION: 1. No acute intracranial abnormality is demonstrated. 2. Stable chronic changes.
[2020-01-18 12:03] LABS: SARS-CoV-2 MS2 Positive; SARS-CoV-2 N Gene Negative; SARS-CoV-2 S Gene Negative; SARS-CoV-2 by NAA Not Detected (NotDetected); SARS-CoV-2 orf1ab Negative
--- NOTE | 2020-01-18 12:25 | PDOC.EEG ---
Neurology EEG Report - Report Report: This EEG was performed using 24 channel [employer] video digital EEG machine with 24 disc electrodes. This was an extended 2 hours 4 minutes of inpatient video EEG recording. Digital analysis of the EEG was done for [place] and seizure detection which revealed no abnormalities. Background: The posterior background rhythm is 7-8 Hz. Minimal reactivity seen with eye opening and closure. Photic stimulation: No response seen with photic stimulation. Hyperventilation: Not performed. Sleep: Drowsiness and sleep observed. EEG diagnosis: Generalized irregular theta activity seen throughout the recording. Nonsustained slow posterior background rhythm. Clinical interpretation: This EEG is consistent with moderate generalized nonspecific cerebral dysfunction.
[2020-01-18 12:49] LABS: Magnesium 1.9 mg/dL (1.6-2.6)
[2020-01-18] MEDS ORDERED: Amlodipine 5 MG TAB PO SCH (13:00)
[2020-01-18 17:41] LABS: Anion Gap 15 mmol/L (10-20); BUN (Urea Nitrogen) 20 mg/dL (9.8-20.1); Calc. Creatinine Clearance 27 mL/min (70-130); Calcium 8.8 mg/dL (7.8-10.44); Carbon Dioxide 17 mmol/L (23-31); Chloride 85 mmol/L (98-107); Estimated GFR-MDRD 46; Glucose 139 mg/dL (83-110); Potassium 4.4 mmol/L (3.5-5.1)
[2020-01-18 17:46] LABS: Sodium 113 mmol/L (136-145)
[2020-01-18] MEDS ORDERED: Tolvaptan 15 MG TAB PO SCH (18:00)
[2020-01-18] MEDS: Magnesium Oxide 400 MG TAB PO SCH (21:05)
[2020-01-18] MEDS: Atorvastatin Calcium 10 MG TAB PO SCH (21:06)
[2020-01-18 22:47] LABS: Sodium 118 mmol/L (136-145)
[2020-01-19] MEDS: Levothyroxine Sodium 50 MCG TAB PO SCH (05:08)
[2020-01-19] MEDS ORDERED: Levothyroxine Sodium 75 MCG TAB PO SCH (06:00)
[2020-01-19 06:09] LABS: Calcium 9.6 mg/dL (7.8-10.44); Chloride 96 mmol/L (98-107); Glucose 103 mg/dL (83-110); Potassium 4.3 mmol/L (3.5-5.1); Sodium 128 mmol/L (136-145)
[2020-01-19 06:10] LABS: Anion Gap 16 mmol/L (10-20); Carbon Dioxide 20 mmol/L (23-31)
[2020-01-19 06:12] LABS: BUN (Urea Nitrogen) 19 mg/dL (9.8-20.1); Calc. Creatinine Clearance 29 mL/min (70-130); Estimated GFR-MDRD 52
[2020-01-19 06:14] LABS: Magnesium 2.3 mg/dL (1.6-2.6)
[2020-01-19 06:27] LABS: Phosphorus 2.2 mg/dL (2.3-4.7)
--- NOTE | 2020-01-19 07:25 | CON ---
NEUROLOGY CONSULTATION DATE OF CONSULTATION: 01/18/2020 REASON FOR CONSULTATION: Altered mental status and headache. HISTORY OF PRESENT ILLNESS: Ms. Cordova is an 89-year-old female with medical history significant for coronary artery disease, hypertension, hyperlipidemia, hypothyroidism, and iron-deficiency anemia, who presented to the emergency room by EMS as a transfer from [facility]. The patient is confused and is unable to provide the history. The history is provided by the son at the bedside. Per son, she ambulates with a cane and needs a little assistance; however, yesterday morning, she was confused and was not herself and her gait appears to be shuffled and this was associated with headache in the right mandaeism. He checked her blood pressure and was high at 191/80. The patient denies any focal weakness, focal paresthesias, nausea, vomiting, problems with speech or swallowing. The patient denies chest pain, abdominal pain, shortness of breath, neck stiffness, recent illness, or recent exposure to COVID. In the [facility] ER, a head CT was done, which did not reveal any acute intracranial process, CT of the chest did not reveal acute cardiopulmonary findings, CT of the abdomen did not show any acute process. EKG showed normal sinus rhythm. Vital signs; blood pressure 167/81, pulse 61, and respiratory rate 20. She was given Decadron injection and was admitted for further evaluation. REVIEW OF SYSTEMS: All other systems were reviewed and were negative except the pertinent positives and negatives mentioned in the HPI. MEDICATIONS: 1. Metoprolol tartrate 37.5 mg twice daily. 2. Aspirin 81 mg daily. 3. Atorvastatin 10 mg p.o. daily. 4. Lisinopril 5 mg p.o. daily. 5. Magnesium 40 mg p.o. nightly. 6. Synthroid 50 mcg p.o. every morning. 7. Vitamin D3 ALLERGIES: NO KNOWN DRUG ALLERGIES. PAST MEDICAL HISTORY: 1. Coronary artery disease. 2. Hypertension. 3. Hyperlipidemia. PAST SURGICAL HISTORY: 1. CABG x3. 2. Hysterectomy. FAMILY HISTORY: No family history of coronary artery disease. SOCIAL HISTORY: The patient lives with family. Does not work. She uses a cane to ambulate. Denies smoking, alcohol, or illegal drug use. PHYSICAL EXAMINATION: General Appearance: NAD, awake alert Eye: PERRL, anicteric sclera ENT: normocephalic atraumatic, dry oral mucosa ENT - other findings: [place], has hearing aids Neck: supple, symmetric, no JVD Heart: RRR, no murmur, no gallops, no rubs, normal peripheral pulses Respiratory: CTAB, no wheezes, no rales, no ronchi, normal chest expansion, no tachypnea Gastrointestinal: soft, non-tender, normal bowel sounds, no guarding, no rigidity Extremities: no cyanosis, no edema Skin: no rashes Neurological: Mental status; the patient is alert and oriented to person, place, and time; however, she is baseline confused and unable to carry a normal conversation. She also has cognitive deficit and is unable to follow commands appropriately and there is some left-sided neglect. Motor; muscle tone and bulk are normal, moving all 4 extremities equally and symmetrically. Sensory; withdraws to nailbed pressure bilaterally. Cerebellar; did not cooperate with the testing. Gait; the patient was worked with Physical therapy and she was extremely unsteady and unable to stand on her own, required help with transfer. Cranial nerves 2 through 12 intact. DATA REVIEWED: I reviewed the labs, which were significant for sodium 132, potassium 5.2. CT of the head did not reveal any acute intracranial pathology and CT of the chest was reviewed - Radiology Interpretation CT scan - head Status: report reviewed by me Additional Comment: 1. no acute intracranial abnormality. 2. 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 3. Periventricular white matter microangiopathic disease with compensatory enlargement of the ventricles. CT scan - chest Status: report reviewed by me Additional Comment: 1. Apparent opacity in the medial right upper lobe seen on chest x-ray is demonstrated to be due to tortuous but otherwise unremarkable blood vessels. 2. No acute cardiopulmonary findings. 3. There is mild pleural-parenchymal scarring in the lung apices. 4. Large calcified granuloma is noted in the lingula. 5. There is a large sliding hiatal hernia. CT scan - pelvis Status: report reviewed by me Additional Comment: 1. 1.7 cm simple appearing cyst in the left renal cortex and not fully characterized subcentimeter hypodensity in the right renal cortex are likely benign and no follow-up imaging is recommended. 2. There is diverticulosis in the sigmoid colon, without CT evidence of diverticulitis. 3. Compression involving the superior endplates of L1, L2 and L3 are uncertain age without specific evidence of acuity. Retropulsion of fragments by 4-5 mm into the spinal canal is noted at each of these levels. 4. There is a grade 1 degenerative anterolisthesis of L5 forward on S1 by approximately [address] scan - abdomen Status: report reviewed by me Chest x-ray Status: report reviewed by me Additional Comment: Atelectasis at the left base. There is an opacity in the medial right upper lobe. No pleural effusion. No pneumothorax. Heart size within normal limits. ASSESSMENT AND PLAN: (1) AMS (altered mental status) Code(s): R41.82 - ALTERED MENTAL STATUS, UNSPECIFIED Status: Acute (2) Right temporal headache Code(s): R51.9 - HEADACHE, UNSPECIFIED Status: Acute (3) Hypertension Code(s): I10 - ESSENTIAL (PRIMARY) HYPERTENSION Status: Chronic (4) Hyperlipidemia Code(s): E78.5 - HYPERLIPIDEMIA, UNSPECIFIED Status: Chronic (5) CAD (coronary artery disease) Code(s): I25.10 - ATHSCL HEART DISEASE OF [place] CORONARY ARTERY W/O ANG PCTRS Status: Chronic (6) Iron deficiency anemia Code(s): D50.9 - IRON DEFICIENCY ANEMIA, UNSPECIFIED Status: Chronic (7) Hypothyroidism Code(s): E03.9 - HYPOTHYROIDISM, UNSPECIFIED Status: Chronic Ms. Cordova is an 89-year-old female with medical history significant for coronary artery disease, hypertension, hyperlipidemia, hypothyroidism, who presented with headache and altered mental status. MRI of the brain reviewed, which was negative for acute intracranial pathology. She does have stable encephalomalacia and gliosis in the right occipital lobe, which can cause left visual deficits. There is also mild cerebellar loss, but no acute changes. Carotid Doppler showed 50% to 69% stenosis of the right internal carotid artery. Consider Vascular Surgery input. EEG reviewed, which was negative for seizure activity, and showed moderate generalized nonspecific cerebral dysfunction. A 2D echocardiogram pending. Continue aspirin and statin for secondary stroke prevention. Altered mental status seems to be multifactorial secondary to metabolic etiology versus transient ischemic attack. Strict control of blood pressure and blood glucose. Neuro checks every 4 hours. Suspicion is low for right temporal headache since C-reactive protein is within range. Check ESR. Continue home medications. Continue medical management per primary team. PT/OT/speech. Deep vein thrombosis prophylaxis. We will continue to follow. Thank you for the consult. Job ID: [id number] MTDD
--- NOTE | 2020-01-19 07:39 | CON ---
DATE OF CONSULTATION: REQUESTING PHYSICIAN: Dr. Almendarez. REASON FOR CONSULTATION: Severe hyponatremia. IMPRESSION: 1. Hyponatremia, query cause. This is possibly SIADH compounded with poor osmolar intake. However, SIADH still remains a diagnosis of exclusion. 2. Headache, lethargy, fogginess with mental status change. All these symptoms could be explained by the hyponatremia. PLAN: 1. Urine chemistry to be able to understand what kind of hyponatremia. Therefore, we will check the urine sodium and urine osmolality. The thyroid-stimulating hormone has already been checked and found to be more or less so this patient is not hypothyroidic. 2. We will discontinue the current cardiac diet and start this patient on regular diet with emphasis on more consumption of protein in the way of animal meat. 3. We will re-evaluate the patient's sodium level in few hours. HISTORY OF PRESENT ILLNESS: History is that of 89-year-old female patient, presented here with lethargy, headache, fogginess, and some degree of mental status change. The patient has been admitted to the Stroke Unit and has undergone some neurological workup including but no limited to the MRI of the brain and neurologic evaluation. Further clinical evaluation did reveal this patient's sodium down to 120. As a result of these findings, decision has been taken to involve Renal in the management of this case. I do believe that the hyponatremia is likely contributing to all the mental status change in this patient. PAST MEDICAL HISTORY: Significant for hypertension, dyslipidemia, hypothyroidism, vitamin D deficiency iron deficiency anemia coronary artery disease. MEDICATIONS: Reviewed and as documented on [employer]. ALLERGIES: NO KNOWN DRUG ALLERGIES. FAMILY HISTORY: Not significantly related to presenting illness. SOCIAL HISTORY: No alcohol. No tobacco. No illicit drug use. REVIEW OF SYSTEMS: Highly limited, given the mental status of this patient. PHYSICAL EXAMINATION: GENERAL: The patient is found to be somewhat hard of hearing so therefore able to answer all questions. VITAL SIGNS: Noted with the following vital signs; afebrile, temperature 98.4, pulse 57, respiratory rate of 20, O2 saturations of 95%, with a blood pressure of 167/75 to 157/65. HEENT: Unremarkable. CARDIOVASCULAR SYSTEM: First and second heart sounds were heard. RESPIRATORY SYSTEM: Clear to auscultation. DIGESTIVE SYSTEM: Revealed a benign abdomen. EXTREMITIES: Showed no peripheral edema. SKIN: No new gross rash. LYMPHATICS: No peripheral lymphadenopathy. NEUROLOGIC: Revealed the patient maybe somewhat confused with no obvious lateralizing sign. SUMMARY: An 89-year-old female patient, who presented here with some mental status change, lethargy, and noted to have hyponatremia with a sodium of about 120. Thank you for this consultation. We will follow with you. ADDENDUM: Further laboratory investigation did reveal urine osmolality of 531 and urine sodium of 82, therefore this is a consolidative diagnosis of SIADH. The patient will now be given anti-ADH medication with a plan to repeat the sodium level in 4 hours. Job ID: [id number]
[2020-01-19] MEDS ORDERED: K-Phos Neutral 250 MG TAB PO SCH (08:15)
[2020-01-19] MEDS: Aspirin 81 mg Enteric Coated Tablet PO SCH (10:00)
[2020-01-19] MEDS: Amlodipine 5 MG TAB PO SCH (10:01)
[2020-01-19] MEDS: Lisinopril 5 MG TAB PO SCH ×2 (10:03→23:46)
[2020-01-19] MEDS: Metoprolol Tartrate 25 MG TAB PO SCH ×2 (10:04→23:46)
[2020-01-19] MEDS ORDERED: Senokot S 8.6-50 MG TAB PO SCH (11:00)
[2020-01-19] MEDS ORDERED: Polyethylene Glycol 3350 17 GM Packet PO SCH (11:00)
[2020-01-19] MEDS: K-Phos Neutral 250 MG TAB PO SCH ×2 (11:50→16:46)
--- NOTE | 2020-01-19 14:47 | PDOC.HOSPP ---
- Subjective Encounter Date: 01/19/20 Encounter Time: 10:00 Subjective: Patient seen and examined for altered mentation. Remains confused. No new focal deficits. No chest pain or palpitations. - Objective Vital Signs & Weight: Vital Signs (12 hours) Temp Pulse Resp BP BP BP Pulse Ox 01/19/20 11:47 98.8 F 53 L 19 134/64 95 01/19/20 10:03 69 127/58 L 01/19/20 07:41 97.9 F 73 20 126/85 94 L 01/19/20 04:49 98.0 F 54 L 18 166/73 H 94 L Weight Admit Weight 109 lb 4.8 oz Weight 105 lb 9.6 oz I&O: 01/18/20 01/19/20 01/20/20 06:59 06:59 06:59 Intake Total 610 Balance 610 Result Diagrams: 01/18/20 04:50 01/19/20 04:43 Additional Labs: Abnormal Lab Results - Last 48 hrs 01/18/20 04:50: Sodium 120 L, Chloride 91 L, Carbon Dioxide 17 L 01/18/20 04:50: Vitamin B12 Greater than 2000 H, TSH 3rd Generation 0.2965 L 01/18/20 04:50: Neutrophils % 88.5 H, Lymphocytes % 8.7 L, Lymphocytes # 0.6 L 01/18/20 08:00: Sodium 121 L, Chloride 91 L, Carbon Dioxide 17 L 01/18/20 12:18: Serum Osmolality 254 L 01/18/20 17:06: Sodium 113 L*, Chloride 85 L, Carbon Dioxide 17 L, Creatinine 1.11 H 01/18/20 22:14: Sodium 118 L* 01/19/20 04:43: Sodium 128 L, Chloride 96 L, Carbon Dioxide 20 L, Phosphorus 2.2 L Laboratory Tests 01/18/20 14:04 Urine Osmolality 531 EKG Reviewed by me: Yes (Sinus rhythm on telemetry) Hospitalist ROS - Review of Systems Respiratory: denies: cough, dry, shortness of breath, hemoptysis, SOB with excertion, pleuritic pain, sputum, wheezing, other Cardiovascular: denies: chest pain, palpitations, orthopnea, paroxysmal noc. dyspnea, edema, light headedness, other - Medication Medications: Active Medications Generic Name Dose Route Start Last Admin Trade Name Freq PRN Reason Stop Dose Admin Acetaminophen 650 mg 01/18/20 02:50 01/18/20 21:06 Acetaminophen 325 Mg Tab PO 650 mg Q4H PRN Administration Headache/Fever/Mild Pain (1-3) Amlodipine Besylate 5 mg 01/19/20 09:00 01/19/20 10:01 Amlodipine 5 Mg Tab PO 5 mg DAILY LEEANN Administration Aspirin 81 mg 01/18/20 09:00 01/19/20 10:00 Aspirin 81 Mg Enteric Coated Tablet PO 81 mg DAILY LEEANN Administration Atorvastatin Calcium 10 mg 01/18/20 21:00 01/18/20 21:06 Atorvastatin Calcium 10 Mg Tab PO 10 mg HS LEEANN Administration Levothyroxine Sodium 50 mcg 01/19/20 06:00 01/19/20 05:08 Levothyroxine Sodium 50 Mcg Tab PO 50 mcg 0600 LEEANN Administration Lisinopril 5 mg 01/18/20 09:00 01/19/20 10:03 Lisinopril 5 Mg Tab PO 5 mg BID LEEANN Administration Magnesium Oxide 400 mg 01/18/20 21:00 01/18/20 21:05 Magnesium Oxide 400 Mg Tab PO 400 mg HS LEEANN Administration Metoprolol Tartrate 37.5 mg 01/18/20 09:00 01/19/20 10:04 Metoprolol Tartrate 25 Mg Tab PO 37.5 mg BID LEEANN Administration Ondansetron HCl 4 mg 01/18/20 02:50 01/18/20 06:32 Ondansetron Pf 4 Mg/2 Ml Vial IVP 4 mg Q6H PRN Administration Nausea/Vomiting Phosphorus 250 mg 01/19/20 12:00 01/19/20 11:50 K-Phos Neutral 250 Mg Tab PO 250 mg TID-WM LEEANN Administration Sodium Chloride 10 ml 01/18/20 02:44 01/18/20 09:47 Flush - Normal Saline 10 Ml Syringe IVF 10 ml PRN PRN Administration Saline Flush - Exam General Appearance: ill appearing Neck: supple, no JVD Heart: RRR, no gallops, no rubs, normal peripheral pulses Respiratory: no wheezes, no rales, no ronchi Gastrointestinal: soft, non-distended, normal bowel sounds Extremities: no cyanosis, no clubbing Hosp A/P - Plan DVT proph w/SCDs Metabolic encephalopathy/generalized weakness/headache 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 Etiology unclear. Hypophosphatemia CKD stage III with mild acute kidney injury Hypothyroidism Mild tricuspid regurgitation Chronic diastolic heart failure Hypertension Hyperlipidemia Coronary artery disease Plan: Patient received 1 dose of tolvaptan yesterday evening after discussion with nephrology. The sodium improved to 128. She is currently not on fluid restriction. Replace phosphorus. Continue current dose of amlodipine. Continue current dose of levothyroxine along with amlodipine and lisinopril. TSH is slightly abnormalwill probably need a repeat TSH in 4 to 8 weeks. Recheck labs later today and in a.m. Start stool softeners. Continue physical therapy. Home health care evaluation. Continue other medications as above. Case discussed with the son at the bedside.
--- NOTE | 2020-01-19 15:15 | PDOC.NEPPN ---
- Subjective Encounter Date: 01/19/20 Subjective: 89 y/o female, with HTN, intermittent hyponatremia, known to me from prior hospitalization seen in follow up for hyponatremia associated with acute mental status change. Recieved tovaptan yesterday after plasma sodium dropped acutely from 120 on admission to a piper of 113. MRI of brain showed no acute pathology. Reported had headache and nausea as well as acute elevation in BP prior to presentation. - Objective Vital Signs & Weight: Vital Signs (12 hours) Temp Pulse Resp BP BP BP Pulse Ox 01/19/20 11:47 98.8 F 53 L 19 134/64 95 01/19/20 10:03 69 127/58 L 01/19/20 09:54 94 L 01/19/20 07:41 97.9 F 73 20 126/85 94 L 01/19/20 04:49 98.0 F 54 L 18 166/73 H 94 L Weight Admit Weight 109 lb 4.8 oz Weight 105 lb 9.6 oz I&O: 01/18/20 01/19/20 01/20/20 06:59 06:59 06:59 Intake Total 610 Balance 610 Result Diagrams: 01/18/20 04:50 01/19/20 04:43 Nephrology ROS - Medication Medications: Active Medications Generic Name Dose Route Start Last Admin Trade Name Freq PRN Reason Stop Dose Admin Acetaminophen 650 mg 01/18/20 02:50 01/18/20 21:06 Acetaminophen 325 Mg Tab PO 650 mg Q4H PRN Administration Headache/Fever/Mild Pain (1-3) Amlodipine Besylate 5 mg 01/19/20 09:00 01/19/20 10:01 Amlodipine 5 Mg Tab PO 5 mg DAILY LEEANN Administration Aspirin 81 mg 01/18/20 09:00 01/19/20 10:00 Aspirin 81 Mg Enteric Coated Tablet PO 81 mg DAILY LEEANN Administration Atorvastatin Calcium 10 mg 01/18/20 21:00 01/18/20 21:06 Atorvastatin Calcium 10 Mg Tab PO 10 mg HS LEEANN Administration Levothyroxine Sodium 50 mcg 01/19/20 06:00 01/19/20 05:08 Levothyroxine Sodium 50 Mcg Tab PO 50 mcg 0600 LEEANN Administration Lisinopril 5 mg 01/18/20 09:00 01/19/20 10:03 Lisinopril 5 Mg Tab PO 5 mg BID LEEANN Administration Magnesium Oxide 400 mg 01/18/20 21:00 01/18/20 21:05 Magnesium Oxide 400 Mg Tab PO 400 mg HS LEEANN Administration Metoprolol Tartrate 37.5 mg 01/18/20 09:00 01/19/20 10:04 Metoprolol Tartrate 25 Mg Tab PO 37.5 mg BID LEEANN Administration Ondansetron HCl 4 mg 01/18/20 02:50 01/18/20 06:32 Ondansetron Pf 4 Mg/2 Ml Vial IVP 4 mg Q6H PRN Administration Nausea/Vomiting Phosphorus 250 mg 01/19/20 12:00 01/19/20 11:50 K-Phos Neutral 250 Mg Tab PO 250 mg TID-WM LEEANN Administration Sodium Chloride 10 ml 01/18/20 02:44 01/18/20 09:47 Flush - Normal Saline 10 Ml Syringe IVF 10 ml PRN PRN Administration Saline Flush - Exam General - other findings: sleeping but arousable. fatigued ENT: normocephalic atraumatic, moist mucosa Neck: symmetric, no JVD Respiratory - other findings: Fair air entry bilaterally with few transmitted sound. No rhonchi/distress Cardiovascular: RRR Gastrointestinal: soft, non-tender, non-distended, normal bowel sounds Extremities: no cyanosis, no edema Neurological - other findings: sleeping but arousable. oriented x 3. moving all limbs. Nephrology Results - Labs Result Diagrams: 01/18/20 04:50 01/19/20 04:43 Lab results: WBC 6.5 thou/uL (4.8-10.8) 01/18/20 04:50 Hgb 12.9 g/dL (12.0-16.0) 01/18/20 04:50 Hct 37.9 % (36.0-47.0) 01/18/20 04:50 MCV 88.7 fL (78.0-98.0) 01/18/20 04:50 Plt Count 141 thou/uL (130-400) 01/18/20 04:50 Neutrophils % 88.5 % (42.0-75.0) H 01/18/20 04:50 Sodium 128 mmol/L (136-145) L 01/19/20 04:43 Potassium 4.3 mmol/L (3.5-5.1) 01/19/20 04:43 Chloride 96 mmol/L (98-107) L 01/19/20 04:43 Carbon Dioxide 20 mmol/L (23-31) L 01/19/20 04:43 BUN 19 mg/dL (9.8-20.1) 01/19/20 04:43 Creatinine 1.01 mg/dL (0.6-1.1) 01/19/20 04:43 Glucose 103 mg/dL (83-110) 01/19/20 04:43 Calcium 9.6 mg/dL (7.8-10.44) 01/19/20 04:43 Troponin I 0.023 ng/mL (< 0.028) 01/18/20 04:50 C-Reactive Protein Less than 0.50 mg/dL (= or < 0.5) 01/18/20 04:50 Sodium 128 mmol/L (136-145) L 01/19/20 04:43 Potassium 4.3 mmol/L (3.5-5.1) 01/19/20 04:43 Chloride 96 mmol/L (98-107) L 01/19/20 04:43 Carbon Dioxide 20 mmol/L (23-31) L 01/19/20 04:43 Anion Gap 16 mmol/L (-20) 01/19/20 04:43 BUN 19 mg/dL (9.8-20.1) 01/19/20 04:43 Creatinine 1.01 mg/dL (0.6-1.1) 01/19/20 04:43 Glucose 103 mg/dL (83-110) 01/19/20 04:43 Calcium 9.6 mg/dL (7.8-10.44) 01/19/20 04:43 Phosphorus 2.2 mg/dL (2.3-4.7) L 01/19/20 04:43 Magnesium 2.3 mg/dL (1.6-2.6) 01/19/20 04:43 Nephrology AP PN - Plan Hyponatremia: Severe and symptomatic. 2/2 SIADH. Sodium dropped to a piper of 11 3 before trending up to 128 after tovaptan. Encehalopathy is improving. SIADH given urine omollality of 500's in the presence of plasma osmolality of 254. HTN: Control is acceptable now. cause or effect. Acceleration is of unclear etiology. MRI is negative for acute CVA. Acute encephaloathy: Due to hyponatremia and or accelerated HTN. acute CVA unlikely with negtive MRI. Plan Monitor plasma sodium level to prevent excessive correction. Will start dextrose to slow than correction if indicated. Continue current antihypertensives. Further treatment to follow depending on hospital course.
[2020-01-19 15:51] LABS: Anion Gap 15 mmol/L (10-20); BUN (Urea Nitrogen) 23 mg/dL (9.8-20.1); Calc. Creatinine Clearance 25 mL/min (70-130); Carbon Dioxide 22 mmol/L (23-31); Chloride 100 mmol/L (98-107); Estimated GFR-MDRD 44; Glucose 107 mg/dL (83-110); Sodium 133 mmol/L (136-145)
[2020-01-19] MEDS ORDERED: Dextrose 5% in Water 1,000 ML IV SCH (16:15)
[2020-01-19 22:25] LABS: Anion Gap 15 mmol/L (10-20); BUN (Urea Nitrogen) 28 mg/dL (9.8-20.1); Calc. Creatinine Clearance 19 mL/min (70-130); Calcium 8.5 mg/dL (7.8-10.44); Carbon Dioxide 21 mmol/L (23-31); Chloride 97 mmol/L (98-107); Estimated GFR-MDRD 31; Glucose 223 mg/dL (83-110); Potassium 3.7 mmol/L (3.5-5.1); Sodium 129 mmol/L (136-145)
[2020-01-19] MEDS: Magnesium Oxide 400 MG TAB PO SCH (23:48)
[2020-01-19] MEDS: Heparin 5,000 UNITS/ML VIAL SC SCH (23:48)
[2020-01-19] MEDS: Senokot S 8.6-50 MG TAB PO SCH (23:48)
[2020-01-19] MEDS: Atorvastatin Calcium 10 MG TAB PO SCH (23:48)
[2020-01-20 05:06] LABS: Anion Gap 16 mmol/L (10-20); BUN (Urea Nitrogen) 32 mg/dL (9.8-20.1); Calc. Creatinine Clearance 20 mL/min (70-130); Calcium 8.6 mg/dL (7.8-10.44); Carbon Dioxide 20 mmol/L (23-31); Chloride 94 mmol/L (98-107); Estimated GFR-MDRD 34; Glucose 91 mg/dL (83-110); Potassium 3.7 mmol/L (3.5-5.1); Sodium 126 mmol/L (136-145)
[2020-01-20] MEDS: Levothyroxine Sodium 50 MCG TAB PO SCH (06:29)
[2020-01-20] MEDS: Lactated Ringer's 1,000 ML IV SCH ×2 (06:29→16:55)
[2020-01-20 06:31] LABS: Phosphorus 4.3 mg/dL (2.3-4.7)
[2020-01-20 08:58] LABS: Anion Gap 16 mmol/L (10-20); BUN (Urea Nitrogen) 30 mg/dL (9.8-20.1); Calc. Creatinine Clearance 22 mL/min (70-130); Calcium 8.7 mg/dL (7.8-10.44); Carbon Dioxide 22 mmol/L (23-31); Chloride 94 mmol/L (98-107); Estimated GFR-MDRD 35; Glucose 96 mg/dL (83-110); Potassium 3.6 mmol/L (3.5-5.1); Sodium 128 mmol/L (136-145)
[2020-01-20] MEDS: K-Phos Neutral 250 MG TAB PO SCH ×3 (09:20→16:56)
[2020-01-20] MEDS: Aspirin 81 mg Enteric Coated Tablet PO SCH (09:20)
[2020-01-20] MEDS: Polyethylene Glycol 3350 17 GM Packet PO SCH (09:20)
[2020-01-20] MEDS: Senokot S 8.6-50 MG TAB PO SCH ×2 (09:29→21:07)
[2020-01-20] MEDS: Heparin 5,000 UNITS/ML VIAL SC SCH ×2 (09:29→21:08)
[2020-01-20] MEDS: Amlodipine 5 MG TAB PO SCH (10:46)
[2020-01-20] MEDS: Metoprolol Tartrate 25 MG TAB PO SCH (10:47)
[2020-01-20] MEDS: Lisinopril 5 MG TAB PO SCH (10:48)
--- NOTE | 2020-01-20 12:43 | PDOC.NEPPN ---
- Subjective Encounter Date: 01/20/20 Subjective: Seen in follow up for hyponatremia and FELICITAS. Mental status is improving. Tolerating oral intake. No vomiting. Had hypotension requiring IVF bolus earlier. - Objective Vital Signs & Weight: Vital Signs (12 hours) Temp Pulse Resp BP BP BP Pulse Ox 01/20/20 10:46 98/51 L 01/20/20 08:13 97.7 F 62 16 86/47 L 95 01/20/20 03:30 97.6 F 62 20 101/52 L 94 L Weight Admit Weight 109 lb 4.8 oz Weight 113 lb 8 oz I&O: 01/19/20 01/20/20 01/21/20 06:59 06:59 06:59 Intake Total 610 610 Balance 610 610 Result Diagrams: 01/18/20 04:50 01/20/20 07:52 Nephrology ROS - Medication Medications: Active Medications Generic Name Dose Route Start Last Admin Trade Name Freq PRN Reason Stop Dose Admin Acetaminophen 650 mg 01/18/20 02:50 01/18/20 21:06 Acetaminophen 325 Mg Tab PO 650 mg Q4H PRN Administration Headache/Fever/Mild Pain (1-3) Amlodipine Besylate 5 mg 01/19/20 09:00 01/20/20 10:46 Amlodipine 5 Mg Tab PO Not Given DAILY LEEANN Aspirin 81 mg 01/18/20 09:00 01/20/20 09:20 Aspirin 81 Mg Enteric Coated Tablet PO 81 mg DAILY LEEANN Administration Atorvastatin Calcium 10 mg 01/18/20 21:00 01/19/20 23:48 Atorvastatin Calcium 10 Mg Tab PO 10 mg HS LEEANN Administration Heparin Sodium (Porcine) 5,000 units 01/19/20 21:00 01/20/20 09:29 Heparin 5,000 Units/Ml Vial SC 5,000 units BID LEEANN Administration Lactated Ringer's 1,000 mls @ 100 mls/hr 01/20/20 06:00 01/20/20 06:29 Lactated Ringer's IV 1,000 mls .Q10H LEEANN Administration Levothyroxine Sodium 50 mcg 01/19/20 06:00 01/20/20 06:29 Levothyroxine Sodium 50 Mcg Tab PO 50 mcg 0600 LEEANN Administration Magnesium Oxide 400 mg 01/18/20 21:00 01/19/20 23:48 Magnesium Oxide 400 Mg Tab PO 400 mg HS LEEANN Administration Metoprolol Tartrate 37.5 mg 01/18/20 09:00 01/20/20 10:47 Metoprolol Tartrate 25 Mg Tab PO Not Given BID LEEANN Ondansetron HCl 4 mg 01/18/20 02:50 01/18/20 06:32 Ondansetron Pf 4 Mg/2 Ml Vial IVP 4 mg Q6H PRN Administration Nausea/Vomiting Phosphorus 250 mg 01/19/20 12:00 01/20/20 09:20 K-Phos Neutral 250 Mg Tab PO 250 mg TID-WM LEEANN Administration Polyethylene Glycol 17 gm 01/20/20 09:00 01/20/20 09:20 Polyethylene Glycol 3350 17 Gm Packet PO 17 gm DAILY LEEANN Administration Senna/Docusate Sodium 2 tab 01/19/20 21:00 01/20/20 09:29 Senokot S 8.6-50 Mg Tab PO 2 tab BID LEEANN Administration Sodium Chloride 10 ml 01/18/20 02:44 01/18/20 09:47 Flush - Normal Saline 10 Ml Syringe IVF 10 ml PRN PRN Administration Saline Flush - Exam General Appearance: awake alert Eye: anicteric sclera ENT: normocephalic atraumatic Neck: no JVD Respiratory: CTAB Cardiovascular: RRR Gastrointestinal: soft, non-tender, non-distended, normal bowel sounds Extremities: no edema Neurological: CN's grossly intact, no new deficit Musculoskeletal: generalized weakness PSYCH: A&O x 3 Nephrology Results - Labs Result Diagrams: 01/18/20 04:50 01/20/20 07:52 Lab results: WBC 6.5 thou/uL (4.8-10.8) 01/18/20 04:50 Hgb 12.9 g/dL (12.0-16.0) 01/18/20 04:50 Hct 37.9 % (36.0-47.0) 01/18/20 04:50 MCV 88.7 fL (78.0-98.0) 01/18/20 04:50 Plt Count 141 thou/uL (130-400) 01/18/20 04:50 Neutrophils % 88.5 % (42.0-75.0) H 01/18/20 04:50 Sodium 128 mmol/L (136-145) L 01/20/20 07:52 Potassium 3.6 mmol/L (3.5-5.1) 01/20/20 07:52 Chloride 94 mmol/L (98-107) L 01/20/20 07:52 Carbon Dioxide 22 mmol/L (23-31) L 01/20/20 07:52 BUN 30 mg/dL (9.8-20.1) H 01/20/20 07:52 Creatinine 1.43 mg/dL (0.6-1.1) H 01/20/20 07:52 Glucose 96 mg/dL (83-110) 01/20/20 07:52 Calcium 8.7 mg/dL (7.8-10.44) 01/20/20 07:52 Troponin I 0.023 ng/mL (< 0.028) 01/18/20 04:50 C-Reactive Protein Less than 0.50 mg/dL (= or < 0.5) 01/18/20 04:50 Sodium 128 mmol/L (136-145) L 01/20/20 07:52 Potassium 3.6 mmol/L (3.5-5.1) 01/20/20 07:52 Chloride 94 mmol/L (98-107) L 01/20/20 07:52 Carbon Dioxide 22 mmol/L (23-31) L 01/20/20 07:52 Anion Gap 16 mmol/L (-20) 01/20/20 07:52 BUN 30 mg/dL (9.8-20.1) H 01/20/20 07:52 Creatinine 1.43 mg/dL (0.6-1.1) H 01/20/20 07:52 Glucose 96 mg/dL (83-110) 01/20/20 07:52 Calcium 8.7 mg/dL (7.8-10.44) 01/20/20 07:52 Phosphorus 4.3 mg/dL (2.3-4.7) 01/20/20 04:25 Magnesium 2.3 mg/dL (1.6-2.6) 01/19/20 04:43 Nephrology AP PN - Plan Hyponatremia: Severe and symptomatic. 2/2 SIADH and poor solute intake. Sodium dropped to a piper of 113 before trending up to 133 after tovaptan. Was started on dextrose infusion to slow down rate of correction. Encephalopathy is improved. Hypotension: due to volume depletion and antihyperensives FELICITAS: Due to volume depletion with possible contribution from lisinopril SIADH given urine omollality of 500's in the presence of plasma osmolality of 254. HTN: Cause or effect. Acceleration is of unclear etiology. MRI is negative for acute CVA. Acute encephaloathy: Due to hyponatremia and or accelerated HTN. acute CVA unlikely with negtive MRI. Plan Hold antihypertensives due to hypotension. Start LR at 100 cc/hr. BMP q4h x 2. Adjust fluid therapy depending on lab result. Further treatment to follow depending on hospital course.
[2020-01-20] MEDS: Acetaminophen 325 MG TAB PO PRN (14:29)
[2020-01-20] MEDS ORDERED: Methyl Salicylate/Menthol 85 GM TUBE TOP PRN (15:19)
[2020-01-20 17:00] LABS: Anion Gap 15 mmol/L (10-20); BUN (Urea Nitrogen) 28 mg/dL (9.8-20.1); Calc. Creatinine Clearance 27 mL/min (70-130); Calcium 8.3 mg/dL (7.8-10.44); Carbon Dioxide 22 mmol/L (23-31); Chloride 94 mmol/L (98-107); Estimated GFR-MDRD 43; Glucose 107 mg/dL (83-110); Potassium 3.8 mmol/L (3.5-5.1); Sodium 127 mmol/L (136-145)
--- NOTE | 2020-01-20 18:10 | PDOC.HOSPP ---
- Subjective Encounter Date: 01/20/20 Encounter Time: 11:00 Subjective: Patient seen and examined for encephalopathy. Mentation improving. No overnight events. No seizures, nausea or vomiting. - Objective Vital Signs & Weight: Vital Signs (12 hours) Temp Pulse Pulse Pulse Resp BP BP 01/20/20 15:42 75 73 115/85 01/20/20 15:30 98.4 F 82 14 01/20/20 12:46 97.3 F L 58 L 16 01/20/20 10:46 98/51 L 01/20/20 08:13 97.7 F 62 16 BP BP BP Pulse Ox 01/20/20 15:42 94/57 L 01/20/20 15:30 97/51 L 96 01/20/20 12:46 134/61 95 01/20/20 10:46 01/20/20 08:13 86/47 L 95 Weight Admit Weight 109 lb 4.8 oz Weight 113 lb 8 oz I&O: 01/19/20 01/20/20 01/21/20 06:59 06:59 06:59 Intake Total 610 610 480 Balance 610 610 480 Result Diagrams: 01/18/20 04:50 01/20/20 16:34 Additional Labs: Abnormal Lab Results - Last 48 hrs 01/18/20 22:14: Sodium 118 L* 01/19/20 04:43: Sodium 128 L, Chloride 96 L, Carbon Dioxide 20 L, Phosphorus 2.2 L 01/19/20 15:23: Sodium 133 L, Carbon Dioxide 22 L, BUN 23 H, Creatinine 1.17 H 01/19/20 22:00: Sodium 129 L, Chloride 97 L, Carbon Dioxide 21 L, BUN 28 H, Creatinine 1.58 H 01/20/20 04:25: Sodium 126 L, Chloride 94 L, Carbon Dioxide 20 L, BUN 32 H, Creatinine 1.44 H 01/20/20 07:52: Sodium 128 L, Chloride 94 L, Carbon Dioxide 22 L, BUN 30 H, Creatinine 1.43 H 01/20/20 16:34: Sodium 127 L, Chloride 94 L, Carbon Dioxide 22 L, BUN 28 H, Creatinine 1.18 H EKG Reviewed by me: Yes (Sinus rhythm on telemetry) Hospitalist ROS - Review of Systems Cardiovascular: denies: chest pain, palpitations, orthopnea, paroxysmal noc. dyspnea, edema, light headedness, other Gastrointestinal: denies: nausea, vomiting, abdominal pain, diarrhea, constipation, melena, hematochezia, other - Medication Medications: Active Medications Generic Name Dose Route Start Last Admin Trade Name Freq PRN Reason Stop Dose Admin Acetaminophen 650 mg 01/18/20 02:50 01/20/20 14:29 Acetaminophen 325 Mg Tab PO 650 mg Q4H PRN Administration Headache/Fever/Mild Pain (1-3) Amlodipine Besylate 5 mg 01/19/20 09:00 01/20/20 10:46 Amlodipine 5 Mg Tab PO Not Given DAILY LEEANN Aspirin 81 mg 01/18/20 09:00 01/20/20 09:20 Aspirin 81 Mg Enteric Coated Tablet PO 81 mg DAILY LEEANN Administration Atorvastatin Calcium 10 mg 01/18/20 21:00 01/19/20 23:48 Atorvastatin Calcium 10 Mg Tab PO 10 mg HS LEEANN Administration Heparin Sodium (Porcine) 5,000 units 01/19/20 21:00 01/20/20 09:29 Heparin 5,000 Units/Ml Vial SC 5,000 units BID LEEANN Administration Lactated Ringer's 1,000 mls @ 100 mls/hr 01/20/20 06:00 01/20/20 16:55 Lactated Ringer's IV 1,000 mls .Q10H LEEANN Administration Levothyroxine Sodium 50 mcg 01/19/20 06:00 01/20/20 06:29 Levothyroxine Sodium 50 Mcg Tab PO 50 mcg 0600 LEEANN Administration Magnesium Oxide 400 mg 01/18/20 21:00 01/19/20 23:48 Magnesium Oxide 400 Mg Tab PO 400 mg HS LEEANN Administration Metoprolol Tartrate 37.5 mg 01/18/20 09:00 01/20/20 10:47 Metoprolol Tartrate 25 Mg Tab PO Not Given BID LEEANN Ondansetron HCl 4 mg 01/18/20 02:50 01/18/20 06:32 Ondansetron Pf 4 Mg/2 Ml Vial IVP 4 mg Q6H PRN Administration Nausea/Vomiting Polyethylene Glycol 17 gm 01/20/20 09:00 01/20/20 09:20 Polyethylene Glycol 3350 17 Gm Packet PO 17 gm DAILY LEEANN Administration Senna/Docusate Sodium 2 tab 01/19/20 21:00 01/20/20 09:29 Senokot S 8.6-50 Mg Tab PO 2 tab BID LEEANN Administration Sodium Chloride 10 ml 01/18/20 02:44 01/18/20 09:47 Flush - Normal Saline 10 Ml Syringe IVF 10 ml PRN PRN Administration Saline Flush - Exam General Appearance: NAD Heart: RRR, no gallops Respiratory: no wheezes, no ronchi Gastrointestinal: non-tender, normal bowel sounds Extremities: no cyanosis Psychiatric: A&O x 3, somnolent Hosp A/P - Plan DVT proph w/SCDs Metabolic encephalopathy/generalized weakness/headache 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 Etiology unclear. Status post 1 dose of tolvaptan Hypophosphatemia Acute kidney injury on CKD stage III Hypothyroidism Mild tricuspid regurgitation Chronic diastolic heart failure Hypertension Hyperlipidemia Coronary artery disease Plan: Patient developed acute kidney injury with maximum creatinine 1.58 last night. Started on IV fluids per nephrology recommendation. Continue Ringer's lactate at 100 mL/h. Monitor electrolytes twice a day. Antihypertensives on hold due to hypotension. MICHELE inhibitor on hold. Recheck labs in a.m. Discontinue K- Phos. Plan discussed with the son at the bedside. Continue other medications as above. Continue physical therapy.
[2020-01-20] MEDS: Magnesium Oxide 400 MG TAB PO SCH (21:00)
[2020-01-20] MEDS: Atorvastatin Calcium 10 MG TAB PO SCH (21:07)
[2020-01-21 02:15] LABS: Band 9 % (5-11); Hemoglobin 11.5 g/dL (12.0-16.0); Lymphocytes 28 % (21-51); MDiff Complete? YES; Mean Corpuscular HGB CONC 33.2 g/dL (32.0-36.0); Mean Corpuscular Hemoglobin 30.1 pg (27.0-31.0); Mean Corpuscular Volume 90.8 fL (78.0-98.0); Mean Platelet Volume 8.5 fL (7.4-10.4); Monocytes 15 % (0-10); Neutrophil 48 % (42-75); Platelet Count 133 thou/uL (130-400); RBC Distribution Width 12.8 % (11.5-14.5); Red Blood Cell (RBC) Count 3.81 mill/uL (4.20-5.40); White Blood Cell (WBC) Count 6.1 thou/uL (4.8-10.8)
[2020-01-21 02:20] LABS: Anion Gap 14 mmol/L (10-20); BUN (Urea Nitrogen) 23 mg/dL (9.8-20.1); Calc. Creatinine Clearance 35 mL/min (70-130); Calcium 8.3 mg/dL (7.8-10.44); Carbon Dioxide 20 mmol/L (23-31); Chloride 97 mmol/L (98-107); Estimated GFR-MDRD 58; Glucose 101 mg/dL (83-110); Potassium 3.5 mmol/L (3.5-5.1); Sodium 127 mmol/L (136-145)
[2020-01-21 02:21] LABS: Magnesium 1.9 mg/dL (1.6-2.6); Phosphorus 3.7 mg/dL (2.3-4.7)
[2020-01-21] MEDS: Lactated Ringer's 1,000 ML IV SCH (03:40)
[2020-01-21] MEDS: Levothyroxine Sodium 50 MCG TAB PO SCH (06:33)
[2020-01-21] MEDS: Acetaminophen 325 MG TAB PO PRN ×2 (06:33→20:47)
[2020-01-21] MEDS: Heparin 5,000 UNITS/ML VIAL SC SCH ×2 (09:25→20:48)
[2020-01-21] MEDS: Metoprolol Tartrate 25 MG TAB PO SCH ×2 (09:26→20:48)
[2020-01-21] MEDS: Aspirin 81 mg Enteric Coated Tablet PO SCH (09:26)
[2020-01-21] MEDS: Senokot S 8.6-50 MG TAB PO SCH ×2 (09:27→20:47)
[2020-01-21] MEDS: Polyethylene Glycol 3350 17 GM Packet PO SCH (09:27)
--- NOTE | 2020-01-21 09:30 | PDOC.NEPPN ---
- Subjective Encounter Date: 01/21/20 Encounter Time: 09:29 Subjective: Seen and examined. More awake and conversation and with good insight. Headache and nausea have subsided. No fever or chest pain or tremors or weakness - Objective Vital Signs & Weight: Vital Signs (12 hours) Temp Pulse Resp BP Pulse Ox 01/21/20 07:43 97.6 F 78 16 167/77 H 95 01/21/20 04:03 97.8 F 72 16 164/73 H 95 01/21/20 00:12 97.5 F L 72 20 120/58 L 96 Weight Admit Weight 109 lb 4.8 oz Weight 115 lb 9.6 oz I&O: 01/20/20 01/21/20 01/22/20 06:59 06:59 06:59 Intake Total 610 1828 Balance 610 1828 Result Diagrams: 01/21/20 01:45 01/21/20 01:45 Nephrology ROS - Medication Medications: Active Medications Generic Name Dose Route Start Last Admin Trade Name Freq PRN Reason Stop Dose Admin Acetaminophen 650 mg 01/18/20 02:50 01/21/20 06:33 Acetaminophen 325 Mg Tab PO 650 mg Q4H PRN Administration Headache/Fever/Mild Pain (1-3) Amlodipine Besylate 5 mg 01/19/20 09:00 01/20/20 10:46 Amlodipine 5 Mg Tab PO Not Given DAILY LEEANN Aspirin 81 mg 01/18/20 09:00 01/20/20 09:20 Aspirin 81 Mg Enteric Coated Tablet PO 81 mg DAILY LEEANN Administration Atorvastatin Calcium 10 mg 01/18/20 21:00 01/20/20 21:07 Atorvastatin Calcium 10 Mg Tab PO 10 mg HS LEEANN Administration Heparin Sodium (Porcine) 5,000 units 01/19/20 21:00 01/20/20 21:08 Heparin 5,000 Units/Ml Vial SC 5,000 units BID LEEANN Administration Levothyroxine Sodium 50 mcg 01/19/20 06:00 01/21/20 06:33 Levothyroxine Sodium 50 Mcg Tab PO 50 mcg 0600 LEEANN Administration Metoprolol Tartrate 37.5 mg 01/18/20 09:00 01/20/20 10:47 Metoprolol Tartrate 25 Mg Tab PO Not Given BID LEEANN Ondansetron HCl 4 mg 01/18/20 02:50 01/18/20 06:32 Ondansetron Pf 4 Mg/2 Ml Vial IVP 4 mg Q6H PRN Administration Nausea/Vomiting Polyethylene Glycol 17 gm 01/20/20 09:00 01/20/20 09:20 Polyethylene Glycol 3350 17 Gm Packet PO 17 gm DAILY LEEANN Administration Senna/Docusate Sodium 2 tab 01/19/20 21:00 01/20/20 21:07 Senokot S 8.6-50 Mg Tab PO 2 tab BID LEEANN Administration Sodium Chloride 10 ml 01/18/20 02:44 01/18/20 09:47 Flush - Normal Saline 10 Ml Syringe IVF 10 ml PRN PRN Administration Saline Flush - Exam General Appearance: awake alert Eye: anicteric sclera ENT: normocephalic atraumatic, moist mucosa Neck: supple, no JVD Respiratory - other findings: fair air entry with few transmitted sound. Cardiovascular: RRR Gastrointestinal: soft, non-tender, non-distended, normal bowel sounds Extremities: no cyanosis Neurological: CN's grossly intact, no focal deficits Musculoskeletal: generalized weakness Musculoskeletal - other findings: moderate kyphosis noted PSYCH: A&O x 3 Nephrology Results - Labs Result Diagrams: 01/21/20 01:45 01/21/20 01:45 Lab results: WBC 6.1 thou/uL (4.8-10.8) 01/21/20 01:45 Hgb 11.5 g/dL (12.0-16.0) L 01/21/20 01:45 Hct 34.6 % (36.0-47.0) L 01/21/20 01:45 MCV 90.8 fL (78.0-98.0) 01/21/20 01:45 Plt Count 133 thou/uL (130-400) 01/21/20 01:45 Neutrophils % 88.5 % (42.0-75.0) H 01/18/20 04:50 Band Neuts % (Manual) 9 % (5-11) 01/21/20 01:45 Sodium 127 mmol/L (136-145) L 01/21/20 01:45 Potassium 3.5 mmol/L (3.5-5.1) 01/21/20 01:45 Chloride 97 mmol/L (98-107) L 01/21/20 01:45 Carbon Dioxide 20 mmol/L (23-31) L 01/21/20 01:45 BUN 23 mg/dL (9.8-20.1) H 01/21/20 01:45 Creatinine 0.91 mg/dL (0.6-1.1) 01/21/20 01:45 Glucose 101 mg/dL (83-110) 01/21/20 01:45 Calcium 8.3 mg/dL (7.8-10.44) 01/21/20 01:45 Troponin I 0.023 ng/mL (< 0.028) 01/18/20 04:50 C-Reactive Protein Less than 0.50 mg/dL (= or < 0.5) 01/18/20 04:50 Sodium 127 mmol/L (136-145) L 01/21/20 01:45 Potassium 3.5 mmol/L (3.5-5.1) 01/21/20 01:45 Chloride 97 mmol/L (98-107) L 01/21/20 01:45 Carbon Dioxide 20 mmol/L (23-31) L 01/21/20 01:45 Anion Gap 14 mmol/L (-20) 01/21/20 01:45 BUN 23 mg/dL (9.8-20.1) H 01/21/20 01:45 Creatinine 0.91 mg/dL (0.6-1.1) 01/21/20 01:45 Glucose 101 mg/dL (83-110) 01/21/20 01:45 Calcium 8.3 mg/dL (7.8-10.44) 01/21/20 01:45 Phosphorus 3.7 mg/dL (2.3-4.7) 01/21/20 01:45 Magnesium 1.9 mg/dL (1.6-2.6) 01/21/20 01:45 Nephrology AP PN - Plan Hyponatremia: Severe and symptomatic. 2/2 SIADH and poor solute intake. Sodium dropped to a piper of 113 before trending up to 133 after tovaptan. started on dextrose infusion to slow down rate of correction. Sodium today is 127. Hypotension: due to volume depletion and antihyperensives. Resolved with IVF FELICITAS: Due to volume depletion with possible contribution from lisinopril. Improved with IVF. Creat today is 0.9 SIADH given urine omollality of 500's in the presence of plasma osmolality of 254. HTN: Cause or effect. Acceleration is of unclear etiology. MRI is negative for acute CVA. Acute encephaloathy: Due to hyponatremia and or accelerated HTN. acute CVA unlikely with negtive MRI. Physical deconditioning Plan DC IVF. Restart metoprolol. Monitor BP and restart amlodipine if appropriate. Off lisinopril due to FELICITAS Start fluid restriction. increase solute intake by starting oral supplement Adjust fluid therapy depending on lab result. Further treatment to follow depending on hospital course.
[2020-01-21] MEDS ORDERED: Sodium Bicarbonate Tab 325 MG TAB PO SCH (09:45)
[2020-01-21] MEDS ORDERED: Potassium Chloride 20 MEQ TAB PO SCH (09:45)
[2020-01-21] MEDS ORDERED: Amlodipine 5 MG TAB PO SCH (12:15)
[2020-01-21 14:19] VITALS: BMI 20.5
--- NOTE | 2020-01-21 14:53 | PDOC.HOSPP ---
- Subjective Encounter Date: 01/21/20 Encounter Time: 11:00 Subjective: Patient seen and examined for encephalopathy due to hyponatremia. Mentation improving. No new focal deficit. - Objective Vital Signs & Weight: Vital Signs (12 hours) Temp Pulse Resp BP Pulse Ox 01/21/20 11:32 97.8 F 62 16 153/72 H 96 01/21/20 07:43 97.6 F 78 16 167/77 H 95 01/21/20 04:03 97.8 F 72 16 164/73 H 95 Weight Admit Weight 109 lb 4.8 oz Weight 115 lb 9.6 oz I&O: 01/20/20 01/21/20 01/22/20 06:59 06:59 06:59 Intake Total 610 1828 118 Output Total 300 Balance 610 1828 -182 Result Diagrams: 01/21/20 01:45 01/21/20 01:45 Additional Labs: Abnormal Lab Results - Last 48 hrs 01/19/20 15:23: Sodium 133 L, Carbon Dioxide 22 L, BUN 23 H, Creatinine 1.17 H 01/19/20 22:00: Sodium 129 L, Chloride 97 L, Carbon Dioxide 21 L, BUN 28 H, Creatinine 1.58 H 01/20/20 04:25: Sodium 126 L, Chloride 94 L, Carbon Dioxide 20 L, BUN 32 H, Creatinine 1.44 H 01/20/20 07:52: Sodium 128 L, Chloride 94 L, Carbon Dioxide 22 L, BUN 30 H, C reatinine 1.43 H 01/20/20 16:34: Sodium 127 L, Chloride 94 L, Carbon Dioxide 22 L, BUN 28 H, Creatinine 1.18 H 01/21/20 01:45: Sodium 127 L, Chloride 97 L, Carbon Dioxide 20 L, BUN 23 H 01/21/20 01:45: RBC 3.81 L, Hgb 11.5 L, Hct 34.6 L, Monocytes % (Manual) 15 H EKG Reviewed by me: Yes (Sinus rhythm on telemetry) Hospitalist ROS - Review of Systems Respiratory: denies: cough, dry, shortness of breath, hemoptysis, SOB with excer tion, pleuritic pain, sputum, wheezing, other Cardiovascular: denies: chest pain, palpitations, orthopnea, paroxysmal noc. dyspnea, edema, light headedness, other - Medication Medications: Active Medications Generic Name Dose Route Start Last Admin Trade Name Freq PRN Reason Stop Dose Admin Acetaminophen 650 mg 01/18/20 02:50 01/21/20 06:33 Acetaminophen 325 Mg Tab PO 650 mg Q4H PRN Administration Headache/Fever/Mild Pain (1-3) Amlodipine Besylate 5 mg 01/19/20 09:00 01/20/20 10:46 Amlodipine 5 Mg Tab PO Not Given DAILY [facility] Aspirin 81 mg 01/18/20 09:00 01/21/20 09:26 Aspirin 81 Mg Enteric Coated Tablet PO 81 mg DAILY LEEANN Administration Atorvastatin Calcium 10 mg 01/18/20 21:00 01/20/20 21:07 Atorvastatin Calcium 10 Mg Tab PO 10 mg HS LEEANN Administration Heparin Sodium (Porcine) 5,000 units 01/19/20 21:00 01/21/20 09:25 Heparin 5,000 Units/Ml Vial SC 5,000 units BID LEEANN Administration Levothyroxine Sodium 50 mcg 01/19/20 06:00 01/21/20 06:33 Levothyroxine Sodium 50 Mcg Tab PO 50 mcg 0600 LEEANN Administration Metoprolol Tartrate 37.5 mg 01/18/20 09:00 01/21/20 09:26 Metoprolol Tartrate 25 Mg Tab PO 37.5 mg BID LEEANN Administration Ondansetron HCl 4 mg 01/18/20 02:50 01/18/20 06:32 Ondansetron Pf 4 Mg/2 Ml Vial IVP 4 mg Q6H PRN Administration Nausea/Vomiting Polyethylene Glycol 17 gm 01/20/20 09:00 01/21/20 09:27 Polyethylene Glycol 3350 17 Gm Packet PO Not Given DAILY [facility] Senna/Docusate Sodium 2 tab 01/19/20 21:00 01/21/20 09:27 Senokot S 8.6-50 Mg Tab PO Not Given BID [facility] Sodium Chloride 10 ml 01/18/20 02:44 01/18/20 09:47 Flush - Normal Saline 10 Ml Syringe IVF 10 ml PRN PRN Administration Saline Flush - Exam General Appearance: NAD Heart: RRR, no gallops Respiratory: no wheezes, no ronchi Gastrointestinal: soft, non-tender, normal bowel sounds Extremities: no cyanosis, no clubbing Hosp A/P - Plan plan discussed w/ family, DVT proph w/heparin, DVT proph w/SCDs Metabolic encephalopathy/generalized weakness/headache 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 Etiology unclear. Status post 1 dose of tolvaptan Hypophosphatemia Acute kidney injury on CKD stage IIIprobably due to tolvaptan Hypothyroidism Mild tricuspid regurgitation Chronic diastolic heart failure Hypertension Hyperlipidemia Coronary artery disease Plan: Sodium stable at 127. Mentation improving. IV fluid discontinued this morning. Amlodipine and metoprolol restarted. Patient started on sodium bicarbonate. Recheck labs in a.m. Continue fluid restriction 1 L in 24 hours. Plan discussed with son at the bedside. Home health care evaluation. Patient will need rolling walker at discharge due to gait imbalance. Discharge planning in 24 hours if stable.
[2020-01-21] MEDS: Sodium Bicarbonate Tab 325 MG TAB PO SCH ×2 (15:04→20:47)
[2020-01-21] MEDS: Atorvastatin Calcium 10 MG TAB PO SCH (20:47)
[2020-01-22 05:42] LABS: Albumin 3.4 g/dL (3.4-4.8); Anion Gap 12 mmol/L (10-20); BUN (Urea Nitrogen) 18 mg/dL (9.8-20.1); BUN/Creatinine Ratio 22.78; Calc. Creatinine Clearance 41 mL/min (70-130); Calcium 8.9 mg/dL (7.8-10.44); Carbon Dioxide 25 mmol/L (23-31); Chloride 102 mmol/L (98-107); Estimated GFR-MDRD 69; Glucose 92 mg/dL (83-110); Potassium 4.9 mmol/L (3.5-5.1); Sodium 134 mmol/L (136-145)
[2020-01-22] MEDS: Levothyroxine Sodium 50 MCG TAB PO SCH (05:56)
[2020-01-22] MEDS: Acetaminophen 325 MG TAB PO PRN (07:05)
[2020-01-22] MEDS: Aspirin 81 mg Enteric Coated Tablet PO SCH (08:39)
[2020-01-22] MEDS: Metoprolol Tartrate 25 MG TAB PO SCH (08:39)
[2020-01-22] MEDS: Amlodipine 5 MG TAB PO SCH (08:40)
[2020-01-22] MEDS: Senokot S 8.6-50 MG TAB PO SCH (08:41)
[2020-01-22] MEDS: Polyethylene Glycol 3350 17 GM Packet PO SCH (08:41)
[2020-01-22] MEDS: Heparin 5,000 UNITS/ML VIAL SC SCH (08:47)
--- NOTE | 2020-01-22 10:29 | PDOC.NEPPN ---
- Subjective Encounter Date: 01/22/20 Subjective: Seen in follow up for hyponatremia and FELICITAS. Feeling back to normal. Concerned about elevated BP. Tolerating oral intake. - Objective Vital Signs & Weight: Vital Signs (12 hours) Temp Pulse Resp BP Pulse Ox 01/22/20 08:27 94 L 01/22/20 07:50 97.7 F 62 16 170/81 H 94 L 01/22/20 05:59 66 181/87 H 01/22/20 04:00 97.3 F L 65 18 183/86 H 93 L 01/22/20 00:00 97.7 F 69 16 137/64 93 L Weight Admit Weight 109 lb 4.8 oz Weight 114 lb I&O: 01/21/20 01/22/20 01/23/20 06:59 06:59 06:59 Intake Total 1828 713 Output Total 1550 Balance 1828 -857 Result Diagrams: 01/21/20 01:45 01/22/20 04:44 Nephrology ROS - Medication Medications: Active Medications Generic Name Dose Route Start Last Admin Trade Name Freq PRN Reason Stop Dose Admin Acetaminophen 650 mg 01/18/20 02:50 01/22/20 07:05 Acetaminophen 325 Mg Tab PO 650 mg Q4H PRN Administration Headache/Fever/Mild Pain (1-3) Aspirin 81 mg 01/18/20 09:00 01/22/20 08:39 Aspirin 81 Mg Enteric Coated Tablet PO 81 mg DAILY LEEANN Administration Atorvastatin Calcium 10 mg 01/18/20 21:00 01/21/20 20:47 Atorvastatin Calcium 10 Mg Tab PO 10 mg HS LEEANN Administration Heparin Sodium (Porcine) 5,000 units 01/19/20 21:00 01/22/20 08:47 Heparin 5,000 Units/Ml Vial SC 5,000 units BID LEEANN Administration Levothyroxine Sodium 50 mcg 01/19/20 06:00 01/22/20 05:56 Levothyroxine Sodium 50 Mcg Tab PO 50 mcg 0600 LEEANN Administration Metoprolol Tartrate 37.5 mg 01/18/20 09:00 01/22/20 08:39 Metoprolol Tartrate 25 Mg Tab PO 37.5 mg BID LEEANN Administration Ondansetron HCl 4 mg 01/18/20 02:50 01/18/20 06:32 Ondansetron Pf 4 Mg/2 Ml Vial IVP 4 mg Q6H PRN Administration Nausea/Vomiting Polyethylene Glycol 17 gm 01/20/20 09:00 01/22/20 08:41 Polyethylene Glycol 3350 17 Gm Packet PO Not Given DAILY LEEANN Senna/Docusate Sodium 1 tab 01/21/20 14:53 01/22/20 08:41 Senokot S 8.6-50 Mg Tab PO Not Given BID LEEANN Sodium Chloride 10 ml 01/18/20 02:44 01/18/20 09:47 Flush - Normal Saline 10 Ml Syringe IVF 10 ml PRN PRN Administration Saline Flush - Exam General Appearance: awake alert Eye: anicteric sclera ENT: normocephalic atraumatic, moist mucosa Neck: supple, symmetric Respiratory: no wheezes, no rales, no ronchi, normal chest expansion, no tachypnea Cardiovascular: RRR Gastrointestinal: soft, non-tender, non-distended, normal bowel sounds Extremities: no cyanosis, no edema Neurological: CN's grossly intact, no focal deficits Neurological - other findings: ambulating with walker Musculoskeletal - other findings: kyphosis noted PSYCH: A&O x 3 Nephrology Results - Labs Result Diagrams: 01/21/20 01:45 01/22/20 04:44 Lab results: WBC 6.1 thou/uL (4.8-10.8) 01/21/20 01:45 Hgb 11.5 g/dL (12.0-16.0) L 01/21/20 01:45 Hct 34.6 % (36.0-47.0) L 01/21/20 01:45 MCV 90.8 fL (78.0-98.0) 01/21/20 01:45 Plt Count 133 thou/uL (130-400) 01/21/20 01:45 Neutrophils % 88.5 % (42.0-75.0) H 01/18/20 04:50 Band Neuts % (Manual) 9 % (5-11) 01/21/20 01:45 Sodium 134 mmol/L (136-145) L 01/22/20 04:44 Potassium 4.9 mmol/L (3.5-5.1) 01/22/20 04:44 Chloride 102 mmol/L (98-107) 01/22/20 04:44 Carbon Dioxide 25 mmol/L (23-31) 01/22/20 04:44 BUN 18 mg/dL (9.8-20.1) 01/22/20 04:44 Creatinine 0.79 mg/dL (0.6-1.1) 01/22/20 04:44 Glucose 92 mg/dL (83-110) 01/22/20 04:44 Calcium 8.9 mg/dL (7.8-10.44) 01/22/20 04:44 Troponin I 0.023 ng/mL (< 0.028) 01/18/20 04:50 C-Reactive Protein Less than 0.50 mg/dL (= or < 0.5) 01/18/20 04:50 Albumin 3.4 g/dL (3.4-4.8) 01/22/20 04:44 Sodium 134 mmol/L (136-145) L 01/22/20 04:44 Potassium 4.9 mmol/L (3.5-5.1) 01/22/20 04:44 Chloride 102 mmol/L (98-107) 01/22/20 04:44 Carbon Dioxide 25 mmol/L (23-31) 01/22/20 04:44 Anion Gap 12 mmol/L (-) 01/22/20 04:44 BUN 18 mg/dL (9.8-20.1) 01/22/20 04:44 Creatinine 0.79 mg/dL (0.6-1.1) 01/22/20 04:44 Glucose 92 mg/dL (83-110) 01/22/20 04:44 Calcium 8.9 mg/dL (7.8-10.44) 01/22/20 04:44 Phosphorus 2.0 mg/dL (2.3-4.7) L 01/22/20 04:44 Magnesium 1.9 mg/dL (1.6-2.6) 01/21/20 01:45 Albumin 3.4 g/dL (3.4-4.8) 01/22/20 04:44 Nephrology AP PN - Plan Hyponatremia: Severe and symptomatic. 2/2 SIADH and poor solute intake. Sodium dropped to a piper of 113 before trending up to 133 after tovaptan. Correction had to be slowed/reversed with D5w. sodium today is 134. Hypotension: due to volume depletion and antihyperensives. Resolved with IVF FELICITAS: Due to volume depletion with possible contribution from lisinopril. Improved with IVF. Creat today is 0.7 SIADH given urine omollality of 500's in the presence of plasma osmolality of 254. HTN: Cause or effect. Acceleration is of unclear etiology. MRI is negative for acute CVA. Acute encephaloathy: Due to hyponatremia and or accelerated HTN. acute CVA unlikely with negtive MRI. Physical deconditioning Plan Replete serum potassium. Increase amlodipine to 10 daily to get adequate BP control. Continue metoprolol. Off lisinopril due to FELICITAS Cpntinue 1000cc per 24 hrs fluid restriction. Continue oral supplement Can be discharged from nephrology point of view. Follow up in the office on 01/30/2020 at 9;30 am.
[2020-01-22] MEDS ORDERED: Amlodipine 5 MG TAB PO SCH (10:45)
[2020-01-22 12:19] VITALS: TEMP 97.3
[2020-01-22 14:17] VITALS: BP 198/87
--- NOTE | 2020-01-22 18:51 | PDOC.DS.DS ---
Provider - Provider Date of Admission: 01/18/20 09:30 Date of Discharge: 01/22/20 Admitting Provider: Tavares Wilson MD Consultations: Nephrology Primary Care Physician: Misael Nunez Course - Hospital Course Hospital Course: Patient is 89-year-old female with hypertension and hyperlipidemia presented to the emergency room with generalized weakness with altered mentation. Her workup in the emergency room was consistent with hyponatremia with sodium of 120 with a serum osmolarity of 254, urine aspirated of 531 and urine sodium of 82. She was admitted to the telemetry unit for close monitoring. Despite fluid restriction and sodium started to worsen. The lowest sodium was 113. At this point patient received tolvaptan 15 mg 1 dose and fluid restriction was discontinued. Her sodium got over corrected to 133 along with acute kidney injury with a maximum creatinine of 1.58 from 0.82 on admission. She was started on IV hydration. Her creatinine gradually improved. Her sodium gradually dropped to 127/128. On the day of discharge her sodium is 134. Over the last 48 hours her mental status is at baseline. Home health care with a rolling walker has been arranged. Patient has been cleared by nephrology for discharge. Lisinopril has been discontinued. Instead patient has been started on amlodipine 10 mg daily. Patient was advised to monitor blood pressure on the daily basis and to maintain a log. 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 Etiology unclear. Status post 1 dose of tolvaptan Hypophosphatemia Acute kidney injury on CKD stage IIIprobably due to tolvaptan Hypothyroidism Mild tricuspid regurgitation Chronic diastolic heart failure Hypertension Hyperlipidemia Coronary artery disease Moderate Right internal carotid artery disease Resuscitation Status: 01/18/20 02:50 Resuscitation Status Routine Co-Sign Provider: Resuscitation Status: FULL: Full Resuscitation Discussed with: Patient - Labs Lab Results: 01/21/20 01:45 01/22/20 04:44 Abnormal Lab Results - Last 48 hrs 01/21/20 01:45: Sodium 127 L, Chloride 97 L, Carbon Dioxide 20 L, BUN 23 H 01/21/20 01:45: RBC 3.81 L, Hgb 11.5 L, Hct 34.6 L, Monocytes % (Manual) 15 H 01/22/20 04:44: Sodium 134 L, Phosphorus 2.0 L - Physical Exam Vitals: Vital Signs (12 hours) Temp Pulse Pulse Pulse Pulse Resp BP 01/22/20 12:18 01/22/20 11:44 97.3 F L 57 L 16 01/22/20 11:38 55 L 57 L 56 L 198/87 H 01/22/20 10:33 55 L 01/22/20 08:27 01/22/20 07:50 97.7 F 62 16 BP BP BP Pulse Ox 01/22/20 12:18 168/72 H 01/22/20 11:44 171/78 H 96 01/22/20 11:38 179/74 H 187/84 H 01/22/20 10:33 187/79 H 01/22/20 08:27 94 L 01/22/20 07:50 170/81 H 94 L Weight Admit Weight 109 lb 4.8 oz Weight 114 lb Physical Exam: The patient was seen and examined on the day of discharge. Plan - Discharge Medications Prescriptions: Amlodipine [Norvasc] 10 mg PO DAILY #30 tab Home Medications: Medication Instructions Recorded Confirmed Type Aspirin [Ecotrin Low Strength] 81 mg PO DAILY 02/17/19 01/18/20 History Atorvastatin Calcium [Lipitor] 10 mg PO HS 02/17/19 01/18/20 History Levothyroxine Sodium 50 mcg PO DAILY 02/17/19 01/18/20 History Metoprolol Tartrate 37.5 mg PO BID 08/31/19 01/18/20 History Calcium Carb, Citrate/Vit D3 2 tablet PO DAILY 01/18/20 01/18/20 History [Citracal Calcium + D Slow Release 1200] Inulin/Cholecalciferol (D3) [Fiber 1 each PO BID 01/18/20 01/18/20 History Gummies-Vitamin D3] Magnesium Glycinate [Mag Glycinate] 400 mg PO DAILY 01/18/20 01/18/20 History Meclizine HCl [Antivert] 25 mg PO DAILY PRN 01/18/20 01/18/20 History Melatonin 5 mg PO HS PRN 01/18/20 01/18/20 History Amlodipine [Norvasc] 10 mg PO DAILY #30 tab 01/22/20 Rx Allergies: No Known Allergies Allergy (Verified 11/29/19 18:04) - Discharge Instructions Nourishment:: Fluid Restriction Diet (1 lit free water (includes Gatorade)) - Follow up Plan Referrals: [facility]) [Outside] Misael Nunez MD [Primary Care Provider] - 7 Days Chloe Salas MD [Active] - 01/30/20 9:30 am (Do Blood test a day before clinic visit) Disposition: HOME HEALTH
[2020-01-23] MEDS ORDERED: Amlodipine 10 MG TAB PO SCH (09:00)
== END 2020-01-22 15:02 | disposition home health service (06) | DRG 643 ==
LOC: ERS 00:55 → 2SE 02:05 → OBSVTOIN 09:30
PROVIDERS: ADMIT Internal Medicine; ATTEND Internal Medicine
DX: E22.2 Syndrome of inappropriate secretion of antidiuretic hormone (principal); G93.41 Metabolic encephalopathy; N17.9 Acute kidney failure, unspecified; I50.32 Chronic diastolic (congestive) heart failure; I13.0 Hypertensive heart and chronic kidney disease with heart failure and stage 1 through stage 4 chronic kidney disease, or unspecified chronic kidney disease; E83.39 Other disorders of phosphorus metabolism; N18.30 Chronic kidney disease, stage 3 unspecified; E03.9 Hypothyroidism, unspecified; I07.1 Rheumatic tricuspid insufficiency; I25.10 Atherosclerotic heart disease of native coronary artery without angina pectoris; Z20.828 Contact with and (suspected) exposure to other viral communicable diseases; D50.9 Iron deficiency anemia, unspecified; G93.89 Other specified disorders of brain; E86.9 Volume depletion, unspecified; E78.5 Hyperlipidemia, unspecified; Z95.1 Presence of aortocoronary bypass graft; Z90.710 Acquired absence of both cervix and uterus; Z79.82 Long term (current) use of aspirin; Z79.899 Other long term (current) drug therapy; Z79.890 Hormone replacement therapy
CPT/HCPCS: 36415; 70551; 80048; 80061; 80069; 82533; 82607; 82746; 83735; 83930; 83935; 84100; 84300; 84443; 84484; 85025; 86140; 87040; 87086; 87635; 93306; 93880; 95712; 95816; 95819; 95957; 96374; 96375; G0378; J1100; J1644; J2405; U0003

== ENCOUNTER 2020-03-24 12:33 | Outpatient (CLI) | payer MEDICARE, OTHER ==
--- NOTE | 2020-03-24 13:17 | CT ---
CT Chest WO Con History: Pulmonary nodule Comparison: Thoracic spine CT August 30, 2019 Findings: At the location of the previously described nodule is pleural and parenchymal scar. No new suspicious pulmonary nodule. Calcified granuloma left upper lobe. Mild pleural parenchymal scarring. Calcified mediastinal lymph nodes. Small fat-containing right posterior diaphragmatic hernia. Large hiatal hernia. The ascending aorta is mildly ectatic measuring up to 3.5 cm. Old T2 and T4 compression deformities have not significantly progressed from the comparison exam. Inc omplete evaluation of L1 and L2 incomplete burst fractures. Healing left anterior buckle rib fractures. Impression: Resolved right lower lobe pulmonary nodule as was previously described with small focus o f scar indicative of healing infection.
== END 2020-03-24 12:34 | disposition home or self-care (01) ==
LOC: BICCT 12:33
PROVIDERS: ATTEND Family Medicine
DX: R91.1 Solitary pulmonary nodule (principal)
CPT/HCPCS: 71250

== ENCOUNTER 2020-08-14 14:53 | Inpatient (IN) | payer MEDICARE ==
[2020-08-14 16:15] LABS: Hemoglobin 11.9 g/dL (12.0-16.0); Mean Corpuscular HGB CONC 32.9 g/dL (32.0-36.0); Mean Corpuscular Hemoglobin 30.2 pg (27.0-31.0); Mean Corpuscular Volume 91.6 fL (78.0-98.0); Mean Platelet Volume 8.6 fL (7.4-10.4); Platelet Count 142 thou/uL (130-400); RBC Distribution Width 12.2 % (11.5-14.5); Red Blood Cell (RBC) Count 3.93 mill/uL (4.20-5.40); White Blood Cell (WBC) Count 7.3 thou/uL (4.8-10.8)
[2020-08-14] MEDS ORDERED: Piperacillin/Tazobactam 3.375 GM VIAL ONE (16:28)
[2020-08-14 16:33] LABS: ALT (SGPT) 20 U/L (8-55); AST (SGOT) 25 U/L (5-34); Albumin 4.4 g/dL (3.4-4.8); Alkaline Phosphatase 68 U/L (40-110); Anion Gap 15 mmol/L (10-20); BUN (Urea Nitrogen) 27 mg/dL (9.8-20.1); Bilirubin, Total 0.4 mg/dL (0.2-1.2); Calc. Creatinine Clearance 0 mL/min (70-130); Calcium 9.9 mg/dL (7.8-10.44); Carbon Dioxide 24 mmol/L (23-31); Chloride 101 mmol/L (98-107); Glucose 101 mg/dL (83-110); Potassium 4.6 mmol/L (3.5-5.1); Protein, Total 7.4 g/dL (5.8-8.1); Sodium 135 mmol/L (136-145)
[2020-08-14 16:40] LABS: Band 34 % (5-11); Eosinophils 1 % (0-10); Lymphocytes 6 % (21-51); MDiff Complete? YES; Metamyelocyte 2 % (0-0); Monocytes 18 % (0-10); Myelocyte 1 % (0-0); Neutrophil 36 % (42-75)
[2020-08-14] MEDS ORDERED: Vancomycin 1 GM/200 ML BAG ONE (18:05)
[2020-08-14] MEDS ORDERED: Acetaminophen 650 MG Suppository PR PRN (18:45)
[2020-08-14] MEDS ORDERED: Ondansetron ODT 4 MG TAB PO PRN (18:45)
[2020-08-14] MEDS ORDERED: Ondansetron PF 4 MG/2 ML Vial IVP PRN (18:45)
[2020-08-14] MEDS: Sodium Chloride 0.9% 1,000 ML IV SCH (20:15)
[2020-08-14] MEDS: Clindamycin/D5W 600 MG in Premix Bag 1 BAG IVPB SCH (22:51)
[2020-08-14] MEDS: Acetaminophen 325 MG TAB PO PRN (22:51)
[2020-08-14 23:27] VITALS: BMI 21.4
[2020-08-14] MEDS ORDERED: Piperacillin/Tazobactam 4.5 GM in Sodium Chloride 0.9% 100 ML IVPB SCH (23:59)
[2020-08-15 03:26] LABS: SARS-CoV-2 NAA Rapid Test Not Detected (NotDetected)
[2020-08-15] MEDS: Clindamycin/D5W 600 MG in Premix Bag 1 BAG IVPB SCH ×3 (05:14→20:46)
[2020-08-15 06:15] LABS: Hemoglobin 11.6 g/dL (12.0-16.0); Mean Corpuscular HGB CONC 33.1 g/dL (32.0-36.0); Mean Corpuscular Hemoglobin 30.4 pg (27.0-31.0); Mean Corpuscular Volume 91.8 fL (78.0-98.0); Mean Platelet Volume 8.8 fL (7.4-10.4); Platelet Count 129 thou/uL (130-400); RBC Distribution Width 12.1 % (11.5-14.5); Red Blood Cell (RBC) Count 3.83 mill/uL (4.20-5.40); White Blood Cell (WBC) Count 8.9 thou/uL (4.8-10.8)
[2020-08-15 06:25] LABS: Anion Gap 16 mmol/L (10-20); BUN (Urea Nitrogen) 18 mg/dL (9.8-20.1); Calc. Creatinine Clearance 40 mL/min (70-130); Calcium 8.9 mg/dL (7.8-10.44); Carbon Dioxide 22 mmol/L (23-31); Chloride 104 mmol/L (98-107); Glucose 99 mg/dL (83-110); Potassium 3.6 mmol/L (3.5-5.1); Sodium 138 mmol/L (136-145)
[2020-08-15 07:46] LABS: Band 14 % (5-11); Lymphocytes 15 % (21-51); MDiff Complete? YES; Monocytes 23 % (0-10); Neutrophil 48 % (42-75)
[2020-08-15] MEDS: Sodium Chloride 0.9% 1,000 ML IV SCH (09:20)
[2020-08-15] MEDS ORDERED: Meclizine HCl 25 MG TAB PO PRN (09:41)
[2020-08-15] MEDS ORDERED: Melatonin 3 MG TAB PO PRN (09:58)
[2020-08-15] MEDS ORDERED: Vancomycin HCl 1 GM in Premix Bag 1 BAG IVPB SCH (18:00)
[2020-08-15] MEDS ORDERED: Vancomycin 1 GM in Premix Bag 1 BAG IVPB SCH (20:00)
[2020-08-15] MEDS: Metoprolol Tartrate 25 MG TAB PO SCH (20:44)
[2020-08-15] MEDS ORDERED: Multivit, Therapeutic 1 TAB PO SCH (21:00)
[2020-08-15] MEDS ORDERED: Atorvastatin Calcium 10 MG TAB PO SCH (21:00)
[2020-08-16] MEDS: Sodium Chloride 0.9% 1,000 ML IV SCH ×2 (01:36→10:47)
[2020-08-16] MEDS: Acetaminophen 325 MG TAB PO PRN ×2 (02:05→08:49)
[2020-08-16] MEDS: Clindamycin/D5W 600 MG in Premix Bag 1 BAG IVPB SCH (05:39)
[2020-08-16] MEDS ORDERED: Levothyroxine Sodium 50 MCG TAB PO SCH (06:00)
[2020-08-16 08:11] VITALS: TEMP 98
[2020-08-16] MEDS: Metoprolol Tartrate 25 MG TAB PO SCH (08:26)
[2020-08-16] MEDS ORDERED: Non-Formulary Item 1 EACH (Magnesium Glycinate [Mag Glycinate] 100 MG Tablet) PO SCH (09:00)
[2020-08-16] MEDS ORDERED: Aspirin 81 mg Enteric Coated Tablet PO SCH (09:00)
[2020-08-16] MEDS ORDERED: Amlodipine 10 MG TAB PO SCH (09:00)
[2020-08-16] MEDS ORDERED: Chlorhexidine Gluconate 15 ML UDCUP SSP SCH (09:00)
[2020-08-16 09:45] LABS: Anion Gap 14 mmol/L (10-20); BUN (Urea Nitrogen) 12 mg/dL (9.8-20.1); Calc. Creatinine Clearance 36 mL/min (70-130); Calcium 8.9 mg/dL (7.8-10.44); Carbon Dioxide 18 mmol/L (23-31); Chloride 109 mmol/L (98-107); Glucose 88 mg/dL (83-110); Potassium 3.8 mmol/L (3.5-5.1); Sodium 137 mmol/L (136-145)
[2020-08-16 09:51] LABS: Band 10 % (5-11); Eosinophils 2 % (0-10); Hemoglobin 12.6 g/dL (12.0-16.0); Lymphocytes 19 % (21-51); MDiff Complete? YES; Mean Corpuscular HGB CONC 33.7 g/dL (32.0-36.0); Mean Corpuscular Hemoglobin 31.1 pg (27.0-31.0); Mean Corpuscular Volume 92.3 fL (78.0-98.0); Mean Platelet Volume 9.2 fL (7.4-10.4); Monocytes 16 % (0-10); Neutrophil 53 % (42-75); Platelet Count 136 thou/uL (130-400); Platelet Morphology Comment Appears Adequate; RBC Distribution Width 12.3 % (11.5-14.5); RBC Morphology Normal; Red Blood Cell (RBC) Count 4.06 mill/uL (4.20-5.40); White Blood Cell (WBC) Count 5.9 thou/uL (4.8-10.8)
[2020-08-16 11:51] VITALS: BP 97/58
[2020-08-16] MEDS ORDERED: Clindamycin/D5W 900 MG in Premix Bag 1 BAG IVPB SCH (14:00)
== END 2020-08-16 15:48 | disposition home or self-care (01) | DRG 158 ==
LOC: ERS 14:53 → SURG A 18:42
PROVIDERS: ADMIT Internal Medicine; ATTEND Nurse Practitioner Family
DX: K12.2 Cellulitis and abscess of mouth (principal); N17.9 Acute kidney failure, unspecified; D50.9 Iron deficiency anemia, unspecified; Z20.822 Contact with and (suspected) exposure to COVID-19; E78.2 Mixed hyperlipidemia; I10 Essential (primary) hypertension; M81.0 Age-related osteoporosis without current pathological fracture; I25.10 Atherosclerotic heart disease of native coronary artery without angina pectoris; E78.5 Hyperlipidemia, unspecified; E03.9 Hypothyroidism, unspecified; E03.8 Other specified hypothyroidism; Z95.1 Presence of aortocoronary bypass graft; Z90.710 Acquired absence of both cervix and uterus; Z79.82 Long term (current) use of aspirin; Z79.890 Hormone replacement therapy; Z79.899 Other long term (current) drug therapy
CPT/HCPCS: 36415; 70486; 70491; 80048; 80053; 80202; 83605; 85025; 87040; 87635; J2543; J3370; J3490; Q9967; U0002; U0003; U0005